=== PATIENT | female | born 1955 | race Caucasian/White ===

== ENCOUNTER 2021-07-17 18:45 | Inpatient (IN) | payer OTHER, SELFPAY ==
--- NOTE | ~2021-07-17 | CT_ITS ---
EXAMINATION: CT CHEST WITHOUT CONTRAST CLINICAL INFORMATION: Smoking history COMPARISON: None TECHNIQUE: Multidetector volumetric CT imaging of the chest was done. Axial MIP volume rendering provided. Sagittal and coronal reformatted images were obtained. This CT examination was performed using dose optimization techniques as appropriate, variously including the following: *Automated exposure control *Adjustment of mA and/or kV according to patient size (this includes techniques or standardized protocols for targeted exams where dose is matched to indication/reason for exam; i.e. extremities or head) *Use of iterative reconstruction technique DLP: 308 mGy-cm FINDINGS: SEC REPORTING CONSULTANT: Unremarkable LUNGS: There are small calcified and noncalcified pulmonary nodules. Largest calcified pulmonary nodule measures 5 mm in the right middle lobe adjacent to the major fissure axial image 267 series 5. Largest noncalcified pulmonary nodule is a peripheral or subpleural 6 mm noncalcified right upper lobe nodule adjacent to the minor fissure axial image 283 series 5. This probably represents a subpleural lymph node. There are patchy areas of groundglass attenuation seen in the right upper lobe. The largest area measures approximately 3 x 4 cm axial image 186 series 5. There is minimal dependent atelectasis seen at the lung bases. No endobronchial or endotracheal lesion is seen. There are mild emphysematous changes. There is a 1 cm cyst in the right upper lobe axial image 188 series 5. No evidence of interstitial lung disease or bronchiectasis is seen. MEDIASTINUM: There is coronary artery calcification. The mediastinum is otherwise normal. PLEURA: There is no pleural effusion. No pleural mass or thickening. AXILLA: No lymphadenopathy. UPPER ABDOMEN: Unremarkable. OSSEOUS STRUCTURES: There are degenerative changes of the spine. CT/CT chest wo con IMPRESSION: Mild emphysema. Patchy areas of groundglass attenuation in the right upper lobe questionable for pneumonitis. Small calcified and noncalcified pulmonary nodules, largest measuring 6 mm. According to the UPDATED 2017 Fleischner Society recommendations, the advised follow-up imaging for 6 mm nodule: Chest CT follow-up in one year. Coronary artery calcification. Fleischner guidelines were followed.
--- NOTE | ~2021-07-17 | MR_ITS ---
EXAMINATION: MR BRAIN WITHOUT CONTRAST CLINICAL INFORMATION: First time psychosis. COMPARISON: None. TECHNIQUE: Multiplanar, multisequence imaging of the brain was performed without contrast. FINDINGS: No diffusion abnormalities are identified to suggest an acute or subacute infarct. No mass effect or midline shift is seen. Moderate generalized parenchymal volume loss and mild chronic white matter microangiopathic changes noted with concordant ex vacuo prominence of the ventricles. There is no evidence of hydrocephalus. No extra-axial fluid collections are seen. The brainstem and cerebellum are normal. The gradient refocused acquisition demonstrates no pathologic magnetic susceptibility artifact to indicate underlying acute or chronic blood products. The craniovertebral junction, marrow signal, and midline structures are normal. The major intracranial flow voids at the level of the [place] of [place] are preserved. The dural venous sinus flow voids are maintained. The mastoid air cells and paranasal sinuses are well aerated. MR/MR head/brain wo con IMPRESSION: No acute intracranial process. Mild chronic white matter microangiopathy and moderate generalized parenchymal volume loss.
[2021-07-17 18:54] VITALS: BP 114/64; PULSE 70; RESP 18; TEMP 36.3; O2SAT 97; BMI 36.0
--- NOTE | 2021-07-17 19:04 | ED.PSYCH ---
HPI - Psych General Chief Complaint: Psychiatric Symptoms <Kay Puga NP - Last Filed: 07/18/21 00:41> Stated Complaint: Section 12 <Kya Puga NP - Last Filed: 07/18/21 00:41> Time Seen by Provider: 07/17/21 19:18 <Kya Puga NP - Last Filed: 07/18/21 00:41> Source: patient and EMS <Kya Puga NP - Last Filed: 07/18/21 00:41> Mode of arrival: EMS <Kya Puga NP - Last Filed: 07/18/21 00:41> Limitations: no limitations <Kya Puga NP - Last Filed: 07/18/21 00:41> History of Present Illness HPI Narrative: 65-year-old female presents via EMS for aggression and psychosis. Patient required Versed and Haldol and physical restraint to be brought into the emergency department. <Kya Puga NP - Last Filed: 07/18/21 00:41> MD complaint: other (Manic, delusions) <Kya Puga NP - Last Filed: 07/18/21 00:41> Onset (ago): day(s) <Kya Puag NP - Last Filed: 07/18/21 00:41> Duration: constant <Kya Puga NP - Last Filed: 07/18/21 00:41> History of same: Yes <Kya Puga NP - Last Filed: 07/18/21 00:41> Relieving factors: none <Kya Puga NP - Last Filed: 07/18/21 00:41> Associated psychiatric symptoms: racing thoughts and delusions <Kya Puga NP - Last Filed: 07/18/21 00:41> Associated symptoms: denies other symptoms <Kya Puga NP - Last Filed: 07/18/21 00:41> Treatments prior to arrival: placed on mental health hold <Kya Puga NP - Last Filed: 07/18/21 00:41> Related Data Home Medications: Home Medications Medication Instructions Recorded Confirmed albuterol sulfate 90 mcg/actuation 2 puff INHALATION Q4H PRN 07/17/21 07/17/21 aerosol inhaler atenolol 100 mg tablet 100 mg PO DAILY 07/17/21 07/17/21 carisoprodol 350 mg tablet 350 mg PO TID PRN 07/17/21 07/17/21 diazepam 10 mg tablet 10 mg PO QID PRN 07/17/21 07/17/21 docusate sodium 100 mg PO BID 07/17/21 07/17/21 duloxetine 30 mg capsule,delayed 90 mg PO DAILY 07/17/21 07/17/21 release nystatin 100,000 unit/gram topical 1 appl TOPICAL BID 07/17/21 07/17/21 cream pantoprazole 40 mg tablet,delayed 40 mg PO DAILY 07/17/21 07/17/21 release polyethylene glycol 3350 17 gram 17 g PO DAILY PRN 07/17/21 07/17/21 oral powder packet trazodone 100 mg tablet 100 mg PO BEDTIME PRN 07/17/21 07/17/21 <yKa Puga NP - Last Filed: 07/18/21 00:41> Allergies/Adverse Reactions: Allergies Allergy/AdvReac Type Severity Reaction Status Date / Time atorvastatin Allergy Intermediate Vomiting Verified 07/17/21 21:21 verapamil Allergy Intermediate Nausea Verified 07/17/21 21:20 zolpidem Allergy Intermediate Rash Verified 07/17/21 21:24 gabapentin Allergy Mild Nausea Verified 07/17/21 21:26 Iodinated Contrast Media Allergy Mild Constipatio Verified 07/17/21 21:27 [Contrast Dye] n niacin Allergy Mild Flushing Verified 07/17/21 21:23 oxybutynin Allergy Mild Dry Mucus Verified 07/17/21 21:26 Membranes Penicillins Allergy Mild Rash Verified 07/17/21 21:24 acetaminophen [From Percocet] Allergy Itching Verified 07/17/21 19:10 amoxicillin [From Augmentin] Allergy Rash Verified 07/17/21 21:19 aspirin [From Percodan] Allergy Chills Verified 07/17/21 21:20 cephalexin Allergy Rash Verified 07/17/21 21:22 clavulanic acid Allergy Rash Verified 07/17/21 21:19 [From Augmentin] codeine Allergy Itching Verified 07/17/21 19:11 oxycodone [From Percocet] Allergy Itching Verified 07/17/21 19:10 Telfa pad Allergy Mild Rash Uncoded 07/17/21 21:29 <Kya Puga NP - Last Filed: 07/18/21 00:41> Review of Systems Review of Systems: Patient noncompliant at this time <Kya Puga NP - Last Filed: 07/18/21 00:41> Yes Unobtainable due to mental status <Kya Puga NP - Last Filed: 07/18/21 00:41> [facility] Past Medical History Attestation statement: The following information was validated with the patient. <Kya Puga NP - Last Filed: 07/18/21 00:41> Source: old records reviewed <Kya Puag NP - Last Filed: 07/18/21 00:41> Social History Social History: Social History Advance Directives: No <Kya Puga NP - Last Filed: 07/18/21 00:41> Physical Exam Vital Signs: Vital Signs: Last Vital Signs Temp 97.7 F 07/18/21 07:37 Pulse 72 07/18/21 07:37 Resp 18 07/18/21 07:37 BP 135/78 07/18/21 07:37 Pulse Ox 99 07/18/21 07:37 BMI result Body Mass Index 36.0 <Kya Puga NP - Last Filed: 07/18/21 00:41> Vital Signs: Last Vital Signs Temp 97.7 F 07/18/21 07:37 Pulse 72 07/18/21 07:37 Resp 18 07/18/21 07:37 BP 135/78 07/18/21 07:37 Pulse Ox 99 07/18/21 07:37 BMI result Body Mass Index 36.0 <ADEEL Mchugh - Last Filed: 07/18/21 08:52> Appearance: Alert. Oriented. Moderate distress. Filthy. Clothing covered in dog feces. Eyes: Pupils equal, round and reactive to light. Sclera nonicteric. ENT: Pharynx normal. Moist mucous membranes. Neck: Normal inspection. Neck supple. CVS: Normal heart rate and rhythm. Pulses normal. Respiratory: No respiratory distress. Breath sounds normal. Abdomen: Soft and nontender. Skin: Skin warm and dry. Normal skin color. Normal skin turgor. Extremities: No lower extremity edema. Gait balanced and coordinated. Neuro: No motor deficit. No sensory deficit. Cranial nerves 2-12 intact. <Kya Puga NP - Last Filed: 07/18/21 00:41> Course Course Course Narrative: 65-year-old female presents via EMS under section 12. Patient has had multiple interactions with the police over the past month, patient's significant other called 911 because patient was uncontrollable. corporate security officer escorted this patient to the ED, he reports that this patient has called 911 over 100 times in the past month. When she called 911 today, she reported that she was eating her dogs puppy teeth and trying to rip them out of her face. Patient is swearing at all staff, allowing vital signs to be obtained and blood, however not answering any questions appropriately. Patient is a Section 12 from the community 20:48 patient unable to be redirected. Continuing with behavioral outburst. Order for Haldol and Ativan p.o. by Dr. Palomares. 22:35 labs indicate H&H of 10.9/34.3 no prior lab values recorded. Urine toxicology positive for amphetamines, benzos which she is prescribed, and marijuana. When she presented to the emergency department, belongings search found multiple packages of marijuana edibles. 00:37 physician observation started at this time <Kya Puga NP - Last Filed: 07/18/21 00:41> Reevaluation(s) Reevaluation #1: Physician observation continued. Patient was seen by N in the community and is an inpatient bed search. No acute overnight events. She is wanting to go home. All home meds have been reordered. Nicotine lozenges ordered for nicotine cravings. Will continue to monitor. <ADEEL Mchugh - Last Filed: 07/18/21 08:52> MDM - Psych Differential Diagnosis Differential diagnosis: Likely acute psychosis, bipolar disorder, depression, drug-induced psychotic disorder, mood disorder and schizoaffective disorder <ANAYA Davila Last Filed: 07/18/21 00:41> Medical Records Attestation: I reviewed the patient's medical records. <Kya Puga NP - Last Filed: 07/18/21 00:41> Lab Data Attestation: I reviewed the patient's lab results. <Kya Puga NP - Last Filed: 07/18/21 00:41> Result diagrams: : 07/17/21 20:10 07/17/21 20:10 <Kya Puga NP - Last Filed: 07/18/21 00:41> Labs: Lab Results 07/17/21 07/17/21 07/17/21 Range/Units 19:15 20:02 20:02 WBC (4.8-10.8) X10*3/uL RBC (4.20-5.50) X10*6/uL Hgb (12.0-16.0) g/dl Hct (37.0-47.0) % MCV (80.0-98.0) fL MCH (27.0-33.0) pg MCHC (31.0-35.0) g/dl RDW (11.0-16.0) % Plt Count (160-400) X10*3/uL MPV (9.4-12.3) fL Immature Gran % (Auto) (0.0-0.4) % Neut % (Auto) (45-73) % Lymph % (Auto) (20-40) % [place] % (Auto) (2-11) % Eos % (Auto) (0-4) % Baso % (Auto) (0-2) % Lymph # (Auto) (1.2-4.9) X10*3/uL [place] # (Auto) (0.1-1.2) X10*3/uL Eos # (Auto) (0.0-0.4) X10*3/uL Baso # (Auto) (0.0-0.2) X10*3/uL Abs Immat Gran (auto) (0.00-0.03) X10*3/uL Absolute Neuts (auto) (2.0-8.3) x10*3/uL Absolute Nucleated RBC (0.0-0.012) X10*3/uL Nucleated RBC % (auto) (0.0-0.2) /100WBC Sodium (135-145) mmol/L Potassium (3.3-5.1) mmol/L Chloride (96-108) mmol/L Carbon Dioxide (22-29) mmol/L Anion Gap (12-20) BUN (9-16) mg/dL Creatinine (0.5-1.4) mg/dL Estim Creat Clear Calc Estimated GFR Random Glucose (60-115) mg/dL Calcium (8.4-10.2) mg/dL Magnesium (1.6-2.6) mg/dL Total Bilirubin (0.0-1.0) mg/dL Direct Bilirubin (0.0-0.5) mg/dL AST (5-31) U/L ALT (0-31) U/L Alkaline Phosphatase (39-117) U/L Total Protein (6.5-8.0) g/dL Albumin (3.5-5.0) g/dL TSH (0.32-4.0) uIU/mL Urine Color DK YELLOW Urine Appearance CLOUDY Urine pH 6.0 (5.0-8.0) Ur Specific [place] 1.025 (1.005-1.025) Urine Protein TRACE (NEG-TRACE) MG/DL Urine Glucose (UA) NEG (NEG) MG/DL Urine Ketones 5 (NEG) MG/DL Urine Blood NEG (NEG) Urine Nitrite NEG (NEG) Ur Leukocyte Esterase NEG (NEG) Salicylates (15-30) mg/dL Urine Opiates Screen Not Detected (Not Detect) Urine Fentanyl Screen Not Detected (Not Detect) Acetaminophen (<30) mcg/mL Ur Barbiturates Screen Not Detected (Not Detect) Ur Phencyclidine Scrn Not Detected (Not Detect) Ur Amphetamines Screen POSITIVE H (Not Detect) U Benzodiazepines Scrn POSITIVE H (Not Detect) Urine Cocaine Screen Not Detected (Not Detect) U Marijuana (THC) Screen POSITIVE H (Not Detect) Ethyl Alcohol mg/dL COVID-19 (AGUST[facility]N) Negative (Negative) COVID-19 Clin Com See Note 07/17/21 07/17/21 07/17/21 Range/Units 20:10 20:10 20:10 WBC 4.9 (4.8-10.8) X10*3/uL RBC 3.52 L (4.20-5.50) X10*6/uL Hgb 10.9 L (12.0-16.0) g/dl Hct 34.3 L (37.0-47.0) % MCV 97.4 (80.0-98.0) fL MCH 31.0 (27.0-33.0) pg MCHC 31.8 (31.0-35.0) g/dl RDW 13.2 (11.0-16.0) % Plt Count 201 (160-400) X10*3/uL MPV 8.6 L (9.4-12.3) fL Immature Gran % (Auto) 0.6 H (0.0-0.4) % Neut % (Auto) 74.1 H (45-73) % Lymph % (Auto) 15.1 L (20-40) % [place] % (Auto) 8.8 (2-11) % Eos % (Auto) 1.0 (0-4) % Baso % (Auto) 0.4 (0-2) % Lymph # (Auto) 0.7 L (1.2-4.9) X10*3/uL [place] # (Auto) 0.4 (0.1-1.2) X10*3/uL Eos # (Auto) 0.1 (0.0-0.4) X10*3/uL Baso # (Auto) 0.0 (0.0-0.2) X10*3/uL Abs Immat Gran (auto) 0.03 (0.00-0.03) X10*3/uL Absolute Neuts (auto) 3.6 (2.0-8.3) x10*3/uL Absolute Nucleated RBC 0.000 (0.0-0.012) X10*3/uL Nucleated RBC % (auto) 0.0 (0.0-0.2) /100WBC Sodium 134 L (135-145) mmol/L Potassium 4.5 (3.3-5.1) mmol/L Chloride 100 (96-108) mmol/L Carbon Dioxide 27 (22-29) mmol/L Anion Gap 12 (12-20) BUN 10 (9-16) mg/dL Creatinine 0.83 (0.5-1.4) mg/dL Estim Creat Clear Calc 75.7 Estimated GFR > 60 Random Glucose 100 (60-115) mg/dL Calcium 10.2 (8.4-10.2) mg/dL Magnesium (1.6-2.6) mg/dL Total Bilirubin (0.0-1.0) mg/dL Direct Bilirubin (0.0-0.5) mg/dL AST (5-31) U/L ALT (0-31) U/L Alkaline Phosphatase (39-117) U/L Total Protein (6.5-8.0) g/dL Albumin (3.5-5.0) g/dL TSH (0.32-4.0) uIU/mL Urine Color Urine Appearance Urine pH (5.0-8.0) Ur Specific [place] (1.005-1.025) Urine Protein (NEG-TRACE) MG/DL Urine Glucose (UA) (NEG) MG/DL Urine Ketones (NEG) MG/DL Urine Blood (NEG) Urine Nitrite (NEG) Ur Leukocyte Esterase (NEG) Salicylates (15-30) mg/dL Urine Opiates Screen (Not Detect) Urine Fentanyl Screen (Not Detect) Acetaminophen (<30) mcg/mL Ur Barbiturates Screen (Not Detect) Ur Phencyclidine Scrn (Not Detect) Ur Amphetamines Screen (Not Detect) U Benzodiazepines Scrn (Not Detect) Urine Cocaine Screen (Not Detect) U Marijuana (THC) Screen (Not Detect) Ethyl Alcohol < 10 mg/dL COVID-19 ([facility]N) (Negative) COVID-19 Clin Com 07/17/21 Range/Units 20:10 WBC (4.8-10.8) X10*3/uL RBC (4.20-5.50) X10*6/uL Hgb (12.0-16.0) g/dl Hct (37.0-47.0) % MCV (80.0-98.0) fL MCH (27.0-33.0) pg MCHC (31.0-35.0) g/dl RDW (11.0-16.0) % Plt Count (160-400) X10*3/uL MPV (9.4-12.3) fL Immature Gran % (Auto) (0.0-0.4) % Neut % (Auto) (45-73) % Lymph % (Auto) (20-40) % [place] % (Auto) (2-11) % Eos % (Auto) (0-4) % Baso % (Auto) (0-2) % Lymph # (Auto) (1.2-4.9) X10*3/uL [place] # (Auto) (0.1-1.2) X10*3/uL Eos # (Auto) (0.0-0.4) X10*3/uL Baso # (Auto) (0.0-0.2) X10*3/uL Abs Immat Gran (auto) (0.00-0.03) X10*3/uL Absolute Neuts (auto) (2.0-8.3) x10*3/uL Absolute Nucleated RBC (0.0-0.012) X10*3/uL Nucleated RBC % (auto) (0.0-0.2) /100WBC Sodium (135-145) mmol/L Potassium (3.3-5.1) mmol/L Chloride (96-108) mmol/L Carbon Dioxide (22-29) mmol/L Anion Gap (12-20) BUN (9-16) mg/dL Creatinine (0.5-1.4) mg/dL Estim Creat Clear Calc Estimated GFR Random Glucose (60-115) mg/dL Calcium (8.4-10.2) mg/dL Magnesium 2.1 (1.6-2.6) mg/dL Total Bilirubin 0.3 (0.0-1.0) mg/dL Direct Bilirubin 0.2 (0.0-0.5) mg/dL AST 23 (5-31) U/L ALT 18 (0-31) U/L Alkaline Phosphatase 44 (39-117) U/L Total Protein 6.9 (6.5-8.0) g/dL Albumin 3.8 (3.5-5.0) g/dL TSH 2.81 (0.32-4.0) uIU/mL Urine Color Urine Appearance Urine pH (5.0-8.0) Ur Specific [place] (1.005-1.025) Urine Protein (NEG-TRACE) MG/DL Urine Glucose (UA) (NEG) MG/DL Urine Ketones (NEG) MG/DL Urine Blood (NEG) Urine Nitrite (NEG) Ur Leukocyte Esterase (NEG) Salicylates < 5.0 L (15-30) mg/dL Urine Opiates Screen (Not Detect) Urine Fentanyl Screen (Not Detect) Acetaminophen < 1 (<30) mcg/mL Ur Barbiturates Screen (Not Detect) Ur Phencyclidine Scrn (Not Detect) Ur Amphetamines Screen (Not Detect) U Benzodiazepines Scrn (Not Detect) Urine Cocaine Screen (Not Detect) U Marijuana (THC) Screen (Not Detect) Ethyl Alcohol mg/dL COVID-19 ([facility]N) (Negative) COVID-19 Clin Com <Kya Puga, TEAM DRIVER - Last Filed: 07/18/21 00:41> Lab Results 07/17/21 07/17/21 07/17/21 Range/Units 19:15 20:02 20:02 WBC (4.8-10.8) X10*3/uL RBC (4.20-5.50) X10*6/uL Hgb (12.0-16.0) g/dl Hct (37.0-47.0) % MCV (80.0-98.0) fL MCH (27.0-33.0) pg MCHC (31.0-35.0) g/dl RDW (11.0-16.0) % Plt Count (160-400) X10*3/uL MPV (9.4-12.3) fL Immature Gran % (Auto) (0.0-0.4) % Neut % (Auto) (45-73) % Lymph % (Auto) (20-40) % [place] % (Auto) (2-11) % Eos % (Auto) (0-4) % Baso % (Auto) (0-2) % Lymph # (Auto) (1.2-4.9) X10*3/uL [place] # (Auto) (0.1-1.2) X10*3/uL Eos # (Auto) (0.0-0.4) X10*3/uL Baso # (Auto) (0.0-0.2) X10*3/uL Abs Immat Gran (auto) (0.00-0.03) X10*3/uL Absolute Neuts (auto) (2.0-8.3) x10*3/uL Absolute Nucleated RBC (0.0-0.012) X10*3/uL Nucleated RBC % (auto) (0.0-0.2) /100WBC Sodium (135-145) mmol/L Potassium (3.3-5.1) mmol/L Chloride (96-108) mmol/L Carbon Dioxide (22-29) mmol/L Anion Gap (12-20) BUN (9-16) mg/dL Creatinine (0.5-1.4) mg/dL Estim Creat Clear Calc Estimated GFR Random Glucose (60-115) mg/dL Calcium (8.4-10.2) mg/dL Magnesium (1.6-2.6) mg/dL Total Bilirubin (0.0-1.0) mg/dL Direct Bilirubin (0.0-0.5) mg/dL AST (5-31) U/L ALT (0-31) U/L Alkaline Phosphatase (39-117) U/L Total Protein (6.5-8.0) g/dL Albumin (3.5-5.0) g/dL TSH (0.32-4.0) uIU/mL Urine Color DK YELLOW Urine Appearance CLOUDY Urine pH 6.0 (5.0-8.0) Ur Specific [place] 1.025 (1.005-1.025) Urine Protein TRACE (NEG-TRACE) MG/DL Urine Glucose (UA) NEG (NEG) MG/DL Urine Ketones 5 (NEG) MG/DL Urine Blood NEG (NEG) Urine Nitrite NEG (NEG) Ur Leukocyte Esterase NEG (NEG) Salicylates (15-30) mg/dL Urine Opiates Screen Not Detected (Not Detect) Urine Fentanyl Screen Not Detected (Not Detect) Acetaminophen (<30) mcg/mL Ur Barbiturates Screen Not Detected (Not Detect) Ur Phencyclidine Scrn Not Detected (Not Detect) Ur Amphetamines Screen POSITIVE H (Not Detect) U Benzodiazepines Scrn POSITIVE H (Not Detect) Urine Cocaine Screen Not Detected (Not Detect) U Marijuana (THC) Screen POSITIVE H (Not Detect) Ethyl Alcohol mg/dL COVID-19 ([facility]) Negative (Negative) COVID-19 Clin Com See Note 07/17/21 07/17/21 07/17/21 Range/Units 20:10 20:10 20:10 WBC 4.9 (4.8-10.8) X10*3/uL RBC 3.52 L (4.20-5.50) X10*6/uL Hgb 10.9 L (12.0-16.0) g/dl Hct 34.3 L (37.0-47.0) % MCV 97.4 (80.0-98.0) fL MCH 31.0 (27.0-33.0) pg MCHC 31.8 (31.0-35.0) g/dl RDW 13.2 (11.0-16.0) % Plt Count 201 (160-400) X10*3/uL MPV 8.6 L (9.4-12.3) fL Immature Gran % (Auto) 0.6 H (0.0-0.4) % Neut % (Auto) 74.1 H (45-73) % Lymph % (Auto) 15.1 L (20-40) % [place] % (Auto) 8.8 (2-11) % Eos % (Auto) 1.0 (0-4) % Baso % (Auto) 0.4 (0-2) % Lymph # (Auto) 0.7 L (1.2-4.9) X10*3/uL [place] # (Auto) 0.4 (0.1-1.2) X10*3/uL Eos # (Auto) 0.1 (0.0-0.4) X10*3/uL Baso # (Auto) 0.0 (0.0-0.2) X10*3/uL Abs Immat Gran (auto) 0.03 (0.00-0.03) X10*3/uL Absolute Neuts (auto) 3.6 (2.0-8.3) x10*3/uL Absolute Nucleated RBC 0.000 (0.0-0.012) X10*3/uL Nucleated RBC % (auto) 0.0 (0.0-0.2) /100WBC Sodium 134 L (135-145) mmol/L Potassium 4.5 (3.3-5.1) mmol/L Chloride 100 (96-108) mmol/L Carbon Dioxide 27 (22-29) mmol/L Anion Gap 12 (12-20) BUN 10 (9-16) mg/dL Creatinine 0.83 (0.5-1.4) mg/dL Estim Creat Clear Calc 75.7 Estimated GFR > 60 Random Glucose 100 (60-115) mg/dL Calcium 10.2 (8.4-10.2) mg/dL Magnesium (1.6-2.6) mg/dL Total Bilirubin (0.0-1.0) mg/dL Direct Bilirubin (0.0-0.5) mg/dL AST (5-31) U/L ALT (0-31) U/L Alkaline Phosphatase (39-117) U/L Total Protein (6.5-8.0) g/dL Albumin (3.5-5.0) g/dL TSH (0.32-4.0) uIU/mL Urine Color Urine Appearance Urine pH (5.0-8.0) Ur Specific [place] (1.005-1.025) Urine Protein (NEG-TRACE) MG/DL Urine Glucose (UA) (NEG) MG/DL Urine Ketones (NEG) MG/DL Urine Blood (NEG) Urine Nitrite (NEG) Ur Leukocyte Esterase (NEG) Salicylates (15-30) mg/dL Urine Opiates Screen (Not Detect) Urine Fentanyl Screen (Not Detect) Acetaminophen (<30) mcg/mL Ur Barbiturates Screen (Not Detect) Ur Phencyclidine Scrn (Not Detect) Ur Amphetamines Screen (Not Detect) U Benzodiazepines Scrn (Not Detect) Urine Cocaine Screen (Not Detect) U Marijuana (THC) Screen (Not Detect) Ethyl Alcohol < 10 mg/dL COVID-19 ([facility]) (Negative) COVID-19 Clin Com 07/17/21 Range/Units 20:10 WBC (4.8-10.8) X10*3/uL RBC (4.20-5.50) X10*6/uL Hgb (12.0-16.0) g/dl Hct (37.0-47.0) % MCV (80.0-98.0) fL MCH (27.0-33.0) pg MCHC (31.0-35.0) g/dl RDW (11.0-16.0) % Plt Count (160-400) X10*3/uL MPV (9.4-12.3) fL Immature Gran % (Auto) (0.0-0.4) % Neut % (Auto) (45-73) % Lymph % (Auto) (20-40) % [place] % (Auto) (2-11) % Eos % (Auto) (0-4) % Baso % (Auto) (0-2) % Lymph # (Auto) (1.2-4.9) X10*3/uL [place] # (Auto) (0.1-1.2) X10*3/uL Eos # (Auto) (0.0-0.4) X10*3/uL Baso # (Auto) (0.0-0.2) X10*3/uL Abs Immat Gran (auto) (0.00-0.03) X10*3/uL Absolute Neuts (auto) (2.0-8.3) x10*3/uL Absolute Nucleated RBC (0.0-0.012) X10*3/uL Nucleated RBC % (auto) (0.0-0.2) /100WBC Sodium (135-145) mmol/L Potassium (3.3-5.1) mmol/L Chloride (96-108) mmol/L Carbon Dioxide (22-29) mmol/L Anion Gap (12-20) BUN (9-16) mg/dL Creatinine (0.5-1.4) mg/dL Estim Creat Clear Calc Estimated GFR Random Glucose (60-115) mg/dL Calcium (8.4-10.2) mg/dL Magnesium 2.1 (1.6-2.6) mg/dL Total Bilirubin 0.3 (0.0-1.0) mg/dL Direct Bilirubin 0.2 (0.0-0.5) mg/dL AST 23 (5-31) U/L ALT 18 (0-31) U/L Alkaline Phosphatase 44 (39-117) U/L Total Protein 6.9 (6.5-8.0) g/dL Albumin 3.8 (3.5-5.0) g/dL TSH 2.81 (0.32-4.0) uIU/mL Urine Color Urine Appearance Urine pH (5.0-8.0) Ur Specific [place] (1.005-1.025) Urine Protein (NEG-TRACE) MG/DL Urine Glucose (UA) (NEG) MG/DL Urine Ketones (NEG) MG/DL Urine Blood (NEG) Urine Nitrite (NEG) Ur Leukocyte Esterase (NEG) Salicylates < 5.0 L (15-30) mg/dL Urine Opiates Screen (Not Detect) Urine Fentanyl Screen (Not Detect) Acetaminophen < 1 (<30) mcg/mL Ur Barbiturates Screen (Not Detect) Ur Phencyclidine Scrn (Not Detect) Ur Amphetamines Screen (Not Detect) U Benzodiazepines Scrn (Not Detect) Urine Cocaine Screen (Not Detect) U Marijuana (THC) Screen (Not Detect) Ethyl Alcohol mg/dL COVID-19 ([facility]) (Negative) COVID-19 Clin Com <ADEEL Mchugh - Last Filed: 07/18/21 08:52> Discharge Plan Discharge Clinical Impression: Acute psychosis, Drug-induced psychotic disorder <Kya Puga NP - Last Filed: 07/18/21 00:41> Patient Disposition: Still a Patient <Kya Puga NP - Last Filed: 07/18/21 00:41> Prescriptions: No Action diazepam 10 mg Tablet 10 mg PO QID PRN (Reason: Anxiety) 0RF trazodone 100 mg Tablet 100 mg PO BEDTIME PRN (Reason: Insomnia) 0RF duloxetine 30 mg Capsule,Delayed Release(Dr/Ec) 90 mg PO DAILY 0RF carisoprodol 350 mg Tablet 350 mg PO TID PRN (Reason: Muscle Spasm) 0RF atenolol 100 mg Tablet 100 mg PO DAILY 0RF pantoprazole 40 mg Tablet,Delayed Release (Dr/Ec) 40 mg PO DAILY 0RF docusate sodium 100 mg PO BID 0RF nystatin 100,000 unit/gram Cream 1 appl TOPICAL BID 0RF albuterol sulfate 90 mcg/actuation Hfa Aerosol Inhaler 2 puff INHALATION Q4H PRN (Reason: Shortness Of Breath) 0RF polyethylene glycol 3350 17 gram Powder In Packet 17 g PO DAILY PRN (Reason: Constipation) 0RF <Kya Puga NP - Last Filed: 07/18/21 00:41>
--- NOTE | 2021-07-17 19:19 | ECG_ITS ---
Test Reason : MEDICAL CLEARANCE Blood Pressure : / mmHG Vent. Rate : 052 BPM Atrial Rate : 052 BPM P-R Int : 176 ms QRS Dur : 096 ms QT Int : 416 ms P-R-T Axes : 065 -14 013 degrees QTc Int : 386 ms Sinus bradycardia T wave abnormality, consider anterior ischemia Abnormal ECG No previous ECGs available Referred By: Kya Puga Electronically Signed By:Robin Askew
[2021-07-17 19:35] LABS: COVID-19 Test Negative (Negative)
[2021-07-17 20:11] LABS: Appearance Urine CLOUDY; Color Urine DK YELLOW; Glucose Urine UA NEG (NEG); Leukocyte Esterase Urine NEG (NEG); Nitrite Urine NEG (NEG); Specific Gravity - Urine 1.025 (1.005-1.025); Urine Blood NEG (NEG); Urine Ketones 5 MG/DL (NEG); Urine Protein TRACE MG/DL (NEG-TRACE)
[2021-07-17 20:20] LABS: MANUAL DIFF FLAG NO
[2021-07-17 20:28] LABS: Basophils Percent Auto 0.4 % (0-2); Eosinophils Absolute Auto 0.1 X10*3/uL (0.0-0.4); Hematocrit 34.3 % (37.0-47.0); Hemoglobin 10.9 g/dl (12.0-16.0); Imm Gran Abs Auto 0.03 X10*3/uL (0.00-0.03); Imm Gran Pct Auto 0.6 % (0.0-0.4); Lymphocytes Absolute Auto 0.7 X10*3/uL (1.2-4.9); Lymphocytes Percent Auto 15.1 % (20-40); Mean Corpuscular HGB Conc 31.8 g/dl (31.0-35.0); Mean Corpuscular Volume 97.4 fL (80.0-98.0); Mean Platelet Volume 8.6 fL (9.4-12.3); Monocytes Absolute Auto 0.4 X10*3/uL (0.1-1.2); Monocytes Percent Auto 8.8 % (2-11); Neutrophils Absolute Auto 3.6 x10*3/uL (2.0-8.3); Neutrophils Percent Auto 74.1 % (45-73); Platelet Count 201 X10*3/uL (160-400); Red Blood Count 3.52 X10*6/uL (4.20-5.50); Red Cell Distribution Width 13.2 % (11.0-16.0); White Blood Count 4.9 X10*3/uL (4.8-10.8)
[2021-07-17] MEDS: Diphth,Pertus(ACell),Tet Adult 0.5 ML SYRINGE IM (20:28)
[2021-07-17 20:38] LABS: Ethanol < 10 mg/dL
[2021-07-17 20:39] LABS: Amphetamine Screen Urine POSITIVE (Not Detect); Barbiturates, Urine Not Detected (Not Detect); Benzodiazepines Screen Urine POSITIVE (Not Detect); Cannabinoid Screen Urine POSITIVE (Not Detect); Cocaine Screen Urine Not Detected (Not Detect); Fentanyl, urine Not Detected (Not Detect); Opiate Screen Urine Not Detected (Not Detect); Phencyclidine Screen Urine Not Detected (Not Detect)
[2021-07-17 20:41] LABS: Anion Gap 12 (12-20); Blood Urea Nitrogen 10 mg/dL (9-16); Calcium 10.2 mg/dL (8.4-10.2); Carbon Dioxide 27 mmol/L (22-29); Chloride 100 mmol/L (96-108); Creatinine Clr Calc Pharmacy 75.7; Estimated Glomerular Filt Rate > 60; Glucose Random 100 mg/dL (60-115); Potassium 4.5 mmol/L (3.3-5.1); Sodium 134 mmol/L (135-145)
[2021-07-17] MEDS: HaloperidoL 5 MG TABLET 10 MG PO (20:55)
[2021-07-17] MEDS: diphenhydrAMINE HCL 25 MG TABLET 50 MG PO (20:55)
[2021-07-17] MEDS: LORazepam 1 MG TABLET 2 MG PO (20:55)
[2021-07-17 20:58] LABS: Acetaminophen LAB < 1 mcg/mL (<30); Alanine Aminotransferase 18 U/L (0-31); Albumin Level 3.8 g/dL (3.5-5.0); Alkaline Phosphatase 44 U/L (39-117); Aspartate Amino Transferase 23 U/L (5-31); Bilirubin Direct 0.2 mg/dL (0.0-0.5); Bilirubin Total 0.3 mg/dL (0.0-1.0); Magnesium 2.1 mg/dL (1.6-2.6); Total Protein 6.9 g/dL (6.5-8.0)
[2021-07-17 21:02] LABS: TSH reflex Free T4 2.81 uIU/mL (0.32-4.0)
[2021-07-17 21:09] LABS: Salicylate < 5.0 mg/dL (15-30)
[2021-07-17 21:17] VITALS: BP 122/81; PULSE 59; RESP 15; TEMP 36.5; O2SAT 100
[2021-07-17] MEDS: carisoprodoL 350 MG TABLET PO (23:18)
[2021-07-17] MEDS: traZODone HCL 100 MG TABLET PO (23:18)
[2021-07-17 23:22] VITALS: BP 96/54; PULSE 60; RESP 18; TEMP 37.1; O2SAT 98
[2021-07-18] MEDS: diazePAM 5 MG TABLET 10 MG PO ×2 (00:09→20:27)
[2021-07-18] MEDS: Omeprazole 20 MG CAPSULE.DR PO (05:51)
--- NOTE | 2021-07-18 06:13 | PC.NURSE ---
Patient was agitated constantly demanding discharge, loud and disruptive, threatening at time, Ativan 2 mg PO, Haldol 10 mg PO, and Benadryl 50 mg PO, administered as ordered @ 2054/patient compliant med intake, med rec completed by calling [facility]compliant with her medication, Tdap administered at 2027, patient wears incontinence brief, no incontinence episode during our shift, patient visited bathroom multiple times, patient's ambulates steady with walker, disposition per [facility] is section 12 inpatient bed search, will continue to monitor.
--- NOTE | 2021-07-18 07:07 | PC.NURSE ---
patient appears asleep at beginning of shift, respirations even and unlabored patient appears in no distress
[2021-07-18 07:37] VITALS: BP 135/78; PULSE 72; RESP 18; TEMP 36.5; O2SAT 99
[2021-07-18] MEDS: atenoloL 100 MG TABLET PO (07:54)
[2021-07-18] MEDS: DULoxetine HCl 30 MG CAPSULE.DR 90 MG PO (07:54)
[2021-07-18] MEDS: Docusate Sodium 100 MG CAPSULE PO ×2 (07:54→20:27)
--- NOTE | 2021-07-18 09:02 | PC.NURSE ---
patient declines ekg im not doing anything its not right im from my service dog
[2021-07-18] MEDS: Nystatin Cream 15 GM TUBE 1 APPL TOPICAL (09:17)
[2021-07-18] MEDS: Nicotine Polacrilex Lozenge 4 MG LOZENGE BUCCAL ×2 (09:17→14:41)
[2021-07-18 18:00] VITALS: BP 148/84; PULSE 60; RESP 16; TEMP 36.6; O2SAT 100
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
[2021-07-18] MEDS: traZODone HCL 100 MG TABLET PO (20:26)
[2021-07-18] MEDS: carisoprodoL 350 MG TABLET PO (20:26)
[2021-07-19] MEDS: Omeprazole 20 MG CAPSULE.DR PO (05:39)
[2021-07-19] MEDS: Nicotine Polacrilex Lozenge 4 MG LOZENGE BUCCAL ×2 (06:53→13:53)
[2021-07-19 08:27] LABS: Alanine Aminotransferase 14 U/L (0-31); Albumin Level 3.7 g/dL (3.5-5.0); Alkaline Phosphatase 41 U/L (39-117); Anion Gap 13 (12-20); Aspartate Amino Transferase 19 U/L (5-31); Bilirubin Total 0.4 mg/dL (0.0-1.0); Blood Urea Nitrogen 8 mg/dL (9-16); Carbon Dioxide 25 mmol/L (22-29); Chloride 102 mmol/L (96-108); Cholesterol 166 mg/dL; Creatinine Clr Calc Pharmacy 84.8; Estimated Glomerular Filt Rate > 60; Glucose Fasting 100 mg/dL (60-99); HDL Cholesterol 38 mg/dL; LDL Cholesterol Calculated 111 mg/dl; Potassium 4.2 mmol/L (3.3-5.1); Sodium 136 mmol/L (135-145); Total Protein 6.9 g/dL (6.5-8.0); Triglycerides 88 mg/dL
[2021-07-19 08:35] LABS: Calcium 9.7 mg/dL (8.4-10.2)
[2021-07-19 08:47] VITALS: BP 98/80; PULSE 71; RESP 16; TEMP 36.7; O2SAT 100
[2021-07-19] MEDS: carisoprodoL 350 MG TABLET PO (09:24)
[2021-07-19] MEDS: DULoxetine HCl 30 MG CAPSULE.DR 90 MG PO (09:25)
[2021-07-19] MEDS: atenoloL 100 MG TABLET PO (09:26)
[2021-07-19] MEDS: Docusate Sodium 100 MG CAPSULE PO ×2 (09:26→21:21)
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
[2021-07-19] MEDS: diazePAM 5 MG TABLET 10 MG PO (13:49)
[2021-07-19] MEDS: Magnesium Hydrox/Alum Hydrox 30 ML ORAL.SUSP PO (13:53)
[2021-07-19] MEDS: HaloperidoL 1 MG TABLET PO ×2 (16:54→21:21)
[2021-07-19 17:51] LABS: Amphetamine Screen Urine Not Detected (Not Detect); Barbiturates, Urine Not Detected (Not Detect); Benzodiazepines Screen Urine POSITIVE (Not Detect); Cannabinoid Screen Urine POSITIVE (Not Detect); Cocaine Screen Urine Not Detected (Not Detect); Fentanyl, urine POSITIVE (Not Detect); Opiate Screen Urine Not Detected (Not Detect); Phencyclidine Screen Urine Not Detected (Not Detect)
[2021-07-19] MEDS: traZODone HCL 100 MG TABLET PO (21:26)
[2021-07-19 22:12] VITALS: BP 115/68; PULSE 62; RESP 20; TEMP 36.4; O2SAT 99
[2021-07-20] MEDS: Albuterol Sulfate 90 MCG 8 GM INHALER 2 PUFF INHALE ×2 (06:09→17:02)
[2021-07-20] MEDS: Omeprazole 20 MG CAPSULE.DR PO (06:09)
[2021-07-20 07:00] VITALS: BMI 30.8
[2021-07-20 08:43] VITALS: BP 160/77; PULSE 61; RESP 16; TEMP 36.9; O2SAT 96
[2021-07-20] MEDS: DULoxetine HCl 30 MG CAPSULE.DR 90 MG PO (09:11)
[2021-07-20] MEDS: HaloperidoL 1 MG TABLET PO (09:11)
[2021-07-20] MEDS: atenoloL 100 MG TABLET PO (09:11)
[2021-07-20] MEDS: Docusate Sodium 100 MG CAPSULE PO ×2 (09:12→20:33)
--- NOTE | 2021-07-20 14:26 | HO.PSYCHPN ---
Subjective Subjective Date of Service: 07/20/21 Reason For Visit: Psychosis Subjective Notes: Conditional Voluntary Interim History: The nursing staff reported that the patient has been compliant with treatment. She reports poor sleep and she wants something for sleep. Still, she is very delusional, disorganized with bizarre delusions regarding vinegar, baby dog teeth coming of her skin. She probably has psychosis induced by cannabis since she uses these in an disclosed way. Yesterday, she was started on a low-dose of Haldol 1 mg p.o. t.i.d. with no over-sedation. Today we will increase up to 2 mg p.o. t.i.d.. On interview, she complained of poor sleep and she agreed to restart and hypnotic, she remains psychotic with elated mood, stating that she is going to be discharged today and she was happy to help staff and peers, informing of the benefits of white vinegar. Mental Status Exam Mental Status Exam Patient Appearance: Disheveled Patient Orientation: Person Level of Consciousness: Awake Patient Behavior: Guarded and Cooperative Mood Description: Elated Affect Description: Labile Ability to Follow Directions: Fair Speech Pattern: Clear Delusions: Paranoid Ideation, Grandiose and Bizarre Thought Process: Illogical Thought Content: positive for Perseveration, positive for Poverty of Content and positive for Disorganized Judgement: Poor Diagnostics Vital Signs (24Hr): Vital Signs - 24 hr 07/19/21 22:12 07/20/21 08:43 Temperature 97.5 F 98.4 F Pulse Rate 62 61 Respiratory Rate 20 16 Blood Pressure 115/68 160/77 H Pulse Oximetry 99 96 BMI result Body Mass Index 30.8 Labs Results: 07/17/21 20:10 07/19/21 07:54 Labs: Laboratory Results - last 48 hr 07/19/21 07/19/21 07:54 Unknown Sodium 136 Potassium 4.2 Chloride 102 Carbon Dioxide 25 Anion Gap 13 BUN 8 L Creatinine 0.74 Estim Creat Clear Calc 84.8 Estimated GFR > 60 Fasting Glucose 100 H Calcium 9.7 Total Bilirubin 0.4 AST 19 ALT 14 Alkaline Phosphatase 41 Total Protein 6.9 Albumin 3.7 Triglycerides 88 Cholesterol 166 LDL Cholesterol, Calc 111 HDL Cholesterol 38 Urine Opiates Screen Not Detected Urine Fentanyl Screen POSITIVE H Ur Barbiturates Screen Not Detected Ur Phencyclidine Scrn Not Detected Ur Amphetamines Screen Not Detected U Benzodiazepines Scrn POSITIVE H Urine Cocaine Screen Not Detected U Marijuana (THC) Screen POSITIVE H Medications Medications Current Medications Al Hydroxide/Mg Hydroxide (Magnesium Hydrox/Alum Hydrox 30 Ml Oral.Susp) 30 ml PO Q6H PRN PRN Reason: Heartburn/Nausea Last Admin: 07/19/21 13:53 Dose: 30 ml Documented by: Albuterol Sulfate (Albuterol Sulfate 90 Mcg 8 Gm Inhaler) 2 puff INHALE Q4H PRN PRN Reason: Shortness Of Breath Last Admin: 07/20/21 06:09 Dose: 2 puff Documented by: Atenolol (Atenolol 100 Mg Tablet) 100 mg PO DAILY [facility]; Protocol Last Admin: 07/20/21 09:11 Dose: 100 mg Documented by: Carisoprodol (Carisoprodol 350 Mg Tablet) 350 mg PO TID PRN PRN Reason: Muscle Spasm Last Admin: 07/19/21 09:24 Dose: 350 mg Documented by: Diazepam (Diazepam 5 Mg Tablet) 10 mg PO QID PRN PRN Reason: Anxiety Last Admin: 07/19/21 13:49 Dose: 10 mg Documented by: Docusate Sodium (Docusate Sodium 100 Mg Capsule) 100 mg PO BID [facility] Last Admin: 07/20/21 09:12 Dose: 100 mg Documented by: Duloxetine HCl (Duloxetine Hcl 30 Mg Capsule.) 90 mg PO DAILY [facility] Last Admin: 07/20/21 09:11 Dose: 90 mg Documented by: Hydroxyzine HCl (Hydroxyzine Hcl 25 Mg Tablet) 25 mg PO BEDTIME PRN PRN Reason: Anxiety Nicotine Polacrilex (Nicotine Polacrilex Lozenge 4 Mg Lozenge) 4 mg BUCCAL Q4H PRN PRN Reason: nicotine cravings Last Admin: 07/19/21 13:53 Dose: 4 mg Documented by: Nystatin (Nystatin Cream 15 Gm Tube) 1 appl TOPICAL BID [facility]; Protocol Last Admin: 07/20/21 09:12 Dose: Not Given Documented by: Omeprazole (Omeprazole 20 Mg Capsule.) 20 mg PO DAILY@0630 [facility] Last Admin: 07/20/21 06:09 Dose: 20 mg Documented by: Polyethylene Glycol (Polyethylene Glycol 3350 17 Gm Powd.Pack) 17 gm PO DAILY PRN PRN Reason: Constipation Trazodone HCl (Trazodone Hcl 100 Mg Tablet) 100 mg PO BEDTIME PRN PRN Reason: Insomnia Last Admin: 07/19/21 21:26 Dose: 100 mg Documented by: Allergies Allergies Allergy/AdvReac Type Severity Reaction Status Date / Time atorvastatin Allergy Intermediate Vomiting Verified 07/17/21 21:21 verapamil Allergy Intermediate Nausea Verified 07/17/21 21:20 zolpidem Allergy Intermediate Rash Verified 07/17/21 21:24 gabapentin Allergy Mild Nausea Verified 07/17/21 21:26 Iodinated Contrast Media Allergy Mild Constipatio Verified 07/17/21 21:27 [Contrast Dye] n niacin Allergy Mild Flushing Verified 07/17/21 21:23 oxybutynin Allergy Mild Dry Mucus Verified 07/17/21 21:26 Membranes Penicillins Allergy Mild Rash Verified 07/17/21 21:24 acetaminophen [From Percocet] Allergy Itching Verified 07/17/21 19:10 amoxicillin [From Augmentin] Allergy Rash Verified 07/17/21 21:19 aspirin [From Percodan] Allergy Chills Verified 07/17/21 21:20 cephalexin Allergy Rash Verified 07/17/21 21:22 clavulanic acid Allergy Rash Verified 07/17/21 21:19 [From Augmentin] codeine Allergy Itching Verified 07/17/21 19:11 oxycodone [From Percocet] Allergy Itching Verified 07/17/21 19:10 Telfa pad Allergy Mild Rash Uncoded 07/17/21 21:29 Assessment & Plan Assessment & Plan (1) Acute psychosis: Status: Acute Code(s): F23 - Brief psychotic disorder (2) Drug-induced psychotic disorder: Status: Acute Code(s): F19.959 - Other psychoactive substance use, unspecified with psychoactive substance-induced psychotic disorder, unspecified Plan The patient is a middle-aged female, single, with no children, with poor social support besides a friend, referred from crisis for psychotic symptoms elicited by bizarre delusions, self-harming behavior and inability to take care of herself with very poor hygiene due to her delusive thinking. Plan 1. Gather collateral information. 2. Continue medications as per med reconciliation form, continue Cymbalta 90 mg daily trazodone 100 mg p.o. q.h.s. and other medications. 3. Increase Haldol up to 2 mg po tid. I spent ___20___ minutes with the patient and/or on the patient floor today, greater than?50% of which was spent counseling/coordinating care. Patient educated on: therapeutic strategies Informed Consent: further education needed Reason for contiued inpatient stay Substantial Risk for: inability to function, rapid decompensation and med/psych decompensation
[2021-07-20] MEDS: HaloperidoL 1 MG TABLET 2 MG PO ×2 (15:50→20:33)
[2021-07-20] MEDS: Nystatin Cream 15 GM TUBE 1 APPL TOPICAL (20:33)
[2021-07-20] MEDS: traZODone HCL 100 MG TABLET PO (20:34)
[2021-07-20] MEDS: hydrOXYzine HCL 25 MG TABLET PO (20:34)
[2021-07-20 22:04] VITALS: BP 127/67; PULSE 64; RESP 18; TEMP 36.9; O2SAT 96
[2021-07-21] MEDS: Omeprazole 20 MG CAPSULE.DR PO (06:39)
--- NOTE | 2021-07-21 07:24 | HO.PSYCHPN ---
Subjective Subjective Date of Service: 07/21/21 Reason For Visit: Psychosis Subjective Notes: Conditional Voluntary Interim History: Pt very irritable today yelling at this screen writer as soon as I entered room stating that staff in hospital had lied to her and we are keeping her away from her therapy dog. She continues to report that baby dog teeth coming out of her skin, not questioning reality of this. No insight in terms of need for psych tx. Review of Systems Review of Systems Patient noncompliant at this time Yes Unobtainable due to mental status Mental Status Exam Mental Status Exam Patient Appearance: Disheveled Patient Orientation: Person Level of Consciousness: Awake Patient Behavior: Guarded and Cooperative Mood Description: Elated Affect Description: Labile Patient Cognition Impaired: Yes Ability to Follow Directions: Fair Speech Pattern: Clear Diagnostics Vital Signs (24Hr): Vital Signs - 24 hr 07/23/21 20:05 Temperature 97.9 F Pulse Rate 74 Respiratory Rate 18 Blood Pressure 101/50 L Pulse Oximetry 95 BMI result Body Mass Index 30.8 Labs Results: 07/17/21 20:10 07/19/21 07:54 Medications Medications Current Medications Al Hydroxide/Mg Hydroxide (Magnesium Hydrox/Alum Hydrox 30 Ml Oral.Susp) 30 ml PO Q6H PRN PRN Reason: Heartburn/Nausea Last Admin: 07/19/21 13:53 Dose: 30 ml Documented by: Albuterol Sulfate (Albuterol Sulfate 90 Mcg 8 Gm Inhaler) 2 puff INHALE Q4H PRN PRN Reason: Shortness Of Breath Last Admin: 07/24/21 04:54 Dose: 2 puff Documented by: Atenolol (Atenolol 100 Mg Tablet) 100 mg PO DAILY [facility]; Protocol Last Admin: 07/23/21 08:18 Dose: 100 mg Documented by: Docusate Sodium (Docusate Sodium 100 Mg Capsule) 100 mg PO BID [facility] Last Admin: 07/23/21 20:46 Dose: 100 mg Documented by: Duloxetine HCl (Duloxetine Hcl 60 Mg Capsule.Dr) 60 mg PO DAILY [facility] Last Admin: 07/23/21 10:16 Dose: 60 mg Documented by: Haloperidol (Haloperidol 5 Mg Tablet) 5 mg PO TID [facility] Last Admin: 07/23/21 20:46 Dose: 5 mg Documented by: Hydroxyzine HCl (Hydroxyzine Hcl 25 Mg Tablet) 25 mg PO BEDTIME PRN PRN Reason: Anxiety Last Admin: 07/21/21 22:58 Dose: 25 mg Documented by: Ibuprofen (Ibuprofen 600 Mg Tablet) 600 mg PO Q6H PRN PRN Reason: Pain, Moderate (Pain Scale 4-6 Last Admin: 07/23/21 12:23 Dose: 600 mg Documented by: Nicotine Polacrilex (Nicotine Polacrilex Lozenge 4 Mg Lozenge) 4 mg BUCCAL Q4H PRN PRN Reason: nicotine cravings Last Admin: 07/22/21 15:45 Dose: 4 mg Documented by: Nystatin (Nystatin Cream 15 Gm Tube) 1 appl TOPICAL BID [facility]; Protocol Last Admin: 07/23/21 20:46 Dose: 1 appl Documented by: Omeprazole (Omeprazole 20 Mg Capsule.Dr) 20 mg PO DAILY@0630 [facility] Last Admin: 07/24/21 05:37 Dose: 20 mg Documented by: Polyethylene Glycol (Polyethylene Glycol 3350 17 Gm Powd.Pack) 17 gm PO DAILY PRN PRN Reason: Constipation Last Admin: 07/24/21 05:35 Dose: 17 gm Documented by: Trazodone HCl (Trazodone Hcl 100 Mg Tablet) 100 mg PO BEDTIME PRN PRN Reason: Insomnia Last Admin: 07/22/21 20:13 Dose: 100 mg Documented by: Allergies Allergies Allergy/AdvReac Type Severity Reaction Status Date / Time atorvastatin Allergy Intermediate Vomiting Verified 07/17/21 21:21 verapamil Allergy Intermediate Nausea Verified 07/17/21 21:20 zolpidem Allergy Intermediate Rash Verified 07/17/21 21:24 gabapentin Allergy Mild Nausea Verified 07/17/21 21:26 Iodinated Contrast Media Allergy Mild Constipatio Verified 07/17/21 21:27 [Contrast Dye] n niacin Allergy Mild Flushing Verified 07/17/21 21:23 oxybutynin Allergy Mild Dry Mucus Verified 07/17/21 21:26 Membranes Penicillins Allergy Mild Rash Verified 07/17/21 21:24 acetaminophen [From Percocet] Allergy Itching Verified 07/17/21 19:10 amoxicillin [From Augmentin] Allergy Rash Verified 07/17/21 21:19 aspirin [From Percodan] Allergy Chills Verified 07/17/21 21:20 cephalexin Allergy Rash Verified 07/17/21 21:22 clavulanic acid Allergy Rash Verified 07/17/21 21:19 [From Augmentin] codeine Allergy Itching Verified 07/17/21 19:11 oxycodone [From Percocet] Allergy Itching Verified 07/17/21 19:10 Telfa pad Allergy Mild Rash Uncoded 07/17/21 21:29 Assessment & Plan Assessment & Plan (1) Acute psychosis: Status: Acute Code(s): F23 - Brief psychotic disorder (2) Drug-induced psychotic disorder: Status: Acute Code(s): F19.959 - Other psychoactive substance use, unspecified with psychoactive substance-induced psychotic disorder, unspecified Plan The patient is a middle-aged female, single, with no children, with poor social support besides a friend, referred from crisis for psychotic symptoms elicited by bizarre delusions, self-harming behavior and inability to take care of herself with very poor hygiene due to her delusive thinking. Plan 1. Gather collateral information. 2. Continue medications as per med reconciliation form, continue Cymbalta 90 mg daily trazodone 100 mg p.o. q.h.s. and other medications. 3. Increase Haldol up to 2 mg po tid. 3/4 continue current medications. I spent minutes with the patient and/or on the patient floor today, greater than?50% of which was spent counseling/coordinating care. Reason for contiued inpatient stay Substantial Risk for: harm to self and inability to function
[2021-07-21] MEDS: DULoxetine HCl 30 MG CAPSULE.DR 90 MG PO (08:39)
[2021-07-21] MEDS: diazePAM 5 MG TABLET 10 MG PO (08:40)
[2021-07-21] MEDS: Docusate Sodium 100 MG CAPSULE PO (08:40)
[2021-07-21] MEDS: HaloperidoL 1 MG TABLET 2 MG PO ×2 (09:18→22:58)
[2021-07-21] MEDS: Albuterol Sulfate 90 MCG 8 GM INHALER 2 PUFF INHALE ×3 (09:51→13:40)
[2021-07-21] MEDS: hydrOXYzine HCL 25 MG TABLET PO (22:58)
[2021-07-21] MEDS: traZODone HCL 100 MG TABLET PO (22:58)
[2021-07-22] MEDS: polyethylene glycoL 3350 17 GM POWD.PACK PO (05:08)
[2021-07-22] MEDS: diazePAM 5 MG TABLET 10 MG PO ×2 (05:08→09:17)
[2021-07-22] MEDS: Docusate Sodium 100 MG CAPSULE PO ×2 (05:08→20:13)
[2021-07-22] MEDS: Omeprazole 20 MG CAPSULE.DR PO (05:08)
[2021-07-22] MEDS: Albuterol Sulfate 90 MCG 8 GM INHALER 2 PUFF INHALE (05:09)
--- NOTE | 2021-07-22 07:27 | P.PNPSI_ITS ---
Subjective Subjective Date of Service: 07/22/21 Reason For Visit: Psychosis Interim History: Pt apologized for yelling at this teletypewriter installer day before. Pt continues to report that she was feeling baby teeth coming out and she needed to clean them out with vinegar. She reports she sanitized her entire apartment because these baby teeth were everywhere. She reports she must have eaten inadvertently and therefore baby teeth coming out of her skin, when asked if this was possible (if you swallow something usually not coming out of skin but in feces) pt does not seem to question this delusions. Pt denies SI/HI. She does not think she needs to be here in hospital and hopes to be discharged soon. Medication Compliance: Yes Review of Systems Review of Systems Patient noncompliant at this time Yes Unobtainable due to mental status Mental Status Exam Mental Status Exam Patient Appearance: Disheveled Patient Orientation: Person Level of Consciousness: Awake Patient Behavior: Guarded and Cooperative Mood Description: Elated Affect Description: Labile Patient Cognition Impaired: Yes Ability to Follow Directions: Fair Speech Pattern: Clear Diagnostics Vital Signs (24Hr): Vital Signs - 24 hr 07/23/21 20:05 Temperature 97.9 F Pulse Rate 74 Respiratory Rate 18 Blood Pressure 101/50 L Pulse Oximetry 95 BMI result Body Mass Index 30.8 Labs Results: 07/17/21 20:10 07/19/21 07:54 Medications Medications Current Medications Al Hydroxide/Mg Hydroxide (Magnesium Hydrox/Alum Hydrox 30 Ml Oral.Susp) 30 ml PO Q6H PRN PRN Reason: Heartburn/Nausea Last Admin: 07/19/21 13:53 Dose: 30 ml Documented by: Albuterol Sulfate (Albuterol Sulfate 90 Mcg 8 Gm Inhaler) 2 puff INHALE Q4H PRN PRN Reason: Shortness Of Breath Last Admin: 07/24/21 04:54 Dose: 2 puff Documented by: Atenolol (Atenolol 100 Mg Tablet) 100 mg PO DAILY [facility]; Protocol Last Admin: 07/23/21 08:18 Dose: 100 mg Documented by: Docusate Sodium (Docusate Sodium 100 Mg Capsule) 100 mg PO BID [facility] Last Admin: 07/23/21 20:46 Dose: 100 mg Documented by: Duloxetine HCl (Duloxetine Hcl 60 Mg Capsule.) 60 mg PO DAILY [facility] Last Admin: 07/23/21 10:16 Dose: 60 mg Documented by: Haloperidol (Haloperidol 5 Mg Tablet) 5 mg PO TID [facility] Last Admin: 07/23/21 20:46 Dose: 5 mg Documented by: Hydroxyzine HCl (Hydroxyzine Hcl 25 Mg Tablet) 25 mg PO BEDTIME PRN PRN Reason: Anxiety Last Admin: 07/21/21 22:58 Dose: 25 mg Documented by: Ibuprofen (Ibuprofen 600 Mg Tablet) 600 mg PO Q6H PRN PRN Reason: Pain, Moderate (Pain Scale 4-6 Last Admin: 07/23/21 12:23 Dose: 600 mg Documented by: Nicotine Polacrilex (Nicotine Polacrilex Lozenge 4 Mg Lozenge) 4 mg BUCCAL Q4H PRN PRN Reason: nicotine cravings Last Admin: 07/22/21 15:45 Dose: 4 mg Documented by: Nystatin (Nystatin Cream 15 Gm Tube) 1 appl TOPICAL BID [facility]; Protocol Last Admin: 07/23/21 20:46 Dose: 1 appl Documented by: Omeprazole (Omeprazole 20 Mg Capsule.Dr) 20 mg PO DAILY@0630 [facility] Last Admin: 07/24/21 05:37 Dose: 20 mg Documented by: Polyethylene Glycol (Polyethylene Glycol 3350 17 Gm Powd.Pack) 17 gm PO DAILY PRN PRN Reason: Constipation Last Admin: 07/24/21 05:35 Dose: 17 gm Documented by: Trazodone HCl (Trazodone Hcl 100 Mg Tablet) 100 mg PO BEDTIME PRN PRN Reason: Insomnia Last Admin: 07/22/21 20:13 Dose: 100 mg Documented by: Allergies Allergies Allergy/AdvReac Type Severity Reaction Status Date / Time atorvastatin Allergy Intermediate Vomiting Verified 07/17/21 21:21 verapamil Allergy Intermediate Nausea Verified 07/17/21 21:20 zolpidem Allergy Intermediate Rash Verified 07/17/21 21:24 gabapentin Allergy Mild Nausea Verified 07/17/21 21:26 Iodinated Contrast Media Allergy Mild Constipatio Verified 07/17/21 21:27 [Contrast Dye] n niacin Allergy Mild Flushing Verified 07/17/21 21:23 oxybutynin Allergy Mild Dry Mucus Verified 07/17/21 21:26 Membranes Penicillins Allergy Mild Rash Verified 07/17/21 21:24 acetaminophen [From Percocet] Allergy Itching Verified 07/17/21 19:10 amoxicillin [From Augmentin] Allergy Rash Verified 07/17/21 21:19 aspirin [From Percodan] Allergy Chills Verified 07/17/21 21:20 cephalexin Allergy Rash Verified 07/17/21 21:22 clavulanic acid Allergy Rash Verified 07/17/21 21:19 [From Augmentin] codeine Allergy Itching Verified 07/17/21 19:11 oxycodone [From Percocet] Allergy Itching Verified 07/17/21 19:10 Telfa pad Allergy Mild Rash Uncoded 07/17/21 21:29 Assessment & Plan Assessment & Plan (1) Acute psychosis: Status: Acute Code(s): F23 - Brief psychotic disorder (2) Drug-induced psychotic disorder: Status: Acute Code(s): F19.959 - Other psychoactive substance use, unspecified with psychoactive substance-induced psychotic disorder, unspecified Plan The patient is a middle-aged female, single, with no children, with poor social support besides a friend, referred from crisis for psychotic symptoms elicited by bizarre delusions, self-harming behavior and inability to take care of herself with very poor hygiene due to her delusive thinking. Plan 1. Gather collateral information. 2. Continue medications as per med reconciliation form, continue Cymbalta 90 mg daily trazodone 100 mg p.o. q.h.s. and other medications. 3. Increase Haldol up to 2 mg po tid. 3/4 continue current medications. 3/5 increase haldol to 5mg po tid, decrease cymbalta to 60mg po daily. I spent minutes with the patient and/or on the patient floor today, greater than?50% of which was spent counseling/coordinating care. Reason for contiued inpatient stay Substantial Risk for: harm to self and inability to function
[2021-07-22] MEDS: DULoxetine HCl 30 MG CAPSULE.DR 90 MG PO (09:16)
[2021-07-22] MEDS: HaloperidoL 1 MG TABLET 2 MG PO ×3 (09:16→20:13)
[2021-07-22] MEDS: atenoloL 100 MG TABLET PO (09:16)
[2021-07-22] MEDS: Nicotine Polacrilex Lozenge 4 MG LOZENGE BUCCAL (15:45)
[2021-07-22 20:00] VITALS: BP 112/63; PULSE 69; RESP 17; TEMP 36.6; O2SAT 100
[2021-07-22] MEDS: traZODone HCL 100 MG TABLET PO (20:13)
[2021-07-22] MEDS: carisoprodoL 350 MG TABLET PO (20:22)
[2021-07-22] MEDS: Nystatin Cream 15 GM TUBE 1 APPL TOPICAL (20:23)
[2021-07-23 06:00] VITALS: BP 139/88; PULSE 75; RESP 18; TEMP 36.1; O2SAT 99
[2021-07-23] MEDS: Omeprazole 20 MG CAPSULE.DR PO (06:29)
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
[2021-07-23] MEDS: HaloperidoL 1 MG TABLET 2 MG PO (08:18)
[2021-07-23] MEDS: DULoxetine HCl 30 MG CAPSULE.DR 90 MG PO (08:18)
[2021-07-23] MEDS: Docusate Sodium 100 MG CAPSULE PO ×2 (08:18→20:46)
[2021-07-23] MEDS: atenoloL 100 MG TABLET PO (08:18)
[2021-07-23] MEDS: polyethylene glycoL 3350 17 GM POWD.PACK PO (08:19)
[2021-07-23] MEDS: DULoxetine HCl 60 MG CAPSULE.DR PO (10:16)
[2021-07-23] MEDS: HaloperidoL 5 MG TABLET PO ×2 (10:16→20:46)
[2021-07-23] MEDS: Ibuprofen 600 MG TABLET PO (12:23)
[2021-07-23 20:05] VITALS: BP 101/50; PULSE 74; RESP 18; TEMP 36.6; O2SAT 95
[2021-07-23] MEDS: Nystatin Cream 15 GM TUBE 1 APPL TOPICAL (20:46)
[2021-07-24] MEDS: Albuterol Sulfate 90 MCG 8 GM INHALER 2 PUFF INHALE (04:54)
[2021-07-24] MEDS: polyethylene glycoL 3350 17 GM POWD.PACK PO (05:35)
[2021-07-24] MEDS: Omeprazole 20 MG CAPSULE.DR PO (05:37)
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
[2021-07-24] MEDS: HaloperidoL 5 MG TABLET PO ×2 (15:47→21:14)
[2021-07-24 18:00] VITALS: BP 130/72; PULSE 69; RESP 18; TEMP 36.5; O2SAT 96
[2021-07-24] MEDS: Docusate Sodium 100 MG CAPSULE PO (21:14)
[2021-07-25] MEDS: Omeprazole 20 MG CAPSULE.DR PO (05:41)
[2021-07-25] MEDS: Albuterol Sulfate 90 MCG 8 GM INHALER 2 PUFF INHALE ×2 (06:15→10:46)
[2021-07-25 07:50] VITALS: BP 170/79; PULSE 83; RESP 15; TEMP 36.6; O2SAT 98
[2021-07-25] MEDS: DULoxetine HCl 60 MG CAPSULE.DR PO (08:48)
[2021-07-25] MEDS: atenoloL 100 MG TABLET PO (08:48)
[2021-07-25] MEDS: Docusate Sodium 100 MG CAPSULE PO ×2 (08:49→20:57)
[2021-07-25] MEDS: Nystatin Cream 15 GM TUBE 1 APPL TOPICAL ×2 (08:49→21:01)
[2021-07-25] MEDS: HaloperidoL 5 MG TABLET PO ×3 (08:49→20:57)
--- NOTE | 2021-07-25 12:54 | P.PNPSI_ITS ---
Subjective Subjective Date of Service: 07/25/21 Reason For Visit: Psychosis Subjective Notes: Conditional Voluntary Interim History: Pt reports she thinks God design her dog just for her. She reports she is like God. Less ideas of teeth coming out of skin. No SI/HI. Less irritable, but little insight as to need for continued psych treatment. She denies hearing voices. Medication Compliance: Yes Side effects from medications: No Review of Systems Review of Systems Patient noncompliant at this time Yes Unobtainable due to mental status Mental Status Exam Mental Status Exam Patient Appearance: Disheveled Patient Orientation: Person Level of Consciousness: Awake Patient Behavior: Guarded and Cooperative Mood Description: Elated Affect Description: Labile Patient Cognition Impaired: Yes Ability to Follow Directions: Fair Speech Pattern: Clear Diagnostics Vital Signs (24Hr): Vital Signs - 24 hr 07/27/21 18:40 07/28/21 08:00 Temperature 97 F 97.9 F Pulse Rate 77 70 Respiratory Rate 18 12 Blood Pressure 100/58 L 142/79 H Pulse Oximetry 97 100 BMI result Body Mass Index 32.1 Labs Results: 07/17/21 20:10 07/19/21 07:54 Imaging Radiology Impressions: ITS Impressions Chest CT 07/25/21 21:05 IMPRESSION: Mild emphysema. Patchy areas of groundglass attenuation in the right upper lobe questionable for pneumonitis. Small calcified and noncalcified pulmonary nodules, largest measuring 6 mm. According to the UPDATED 2017 Fleischner Society recommendations, the advised follow-up imaging for 6 mm nodule: Chest CT follow-up in one year. Coronary artery calcification. Fleischner guidelines were followed. Brain MRI 07/26/21 09:56 IMPRESSION: No acute intracranial process. Mild chronic white matter microangiopathy and moderate generalized parenchymal volume loss. Medications Medications Current Medications Al Hydroxide/Mg Hydroxide (Magnesium Hydrox/Alum Hydrox 30 Ml Oral.Susp) 30 ml PO Q6H PRN PRN Reason: Heartburn/Nausea Last Admin: 07/19/21 13:53 Dose: 30 ml Documented by: Albuterol Sulfate (Albuterol Sulfate 90 Mcg 8 Gm Inhaler) 2 puff INHALE Q4H PRN PRN Reason: Shortness Of Breath Last Admin: 07/28/21 09:13 Dose: 2 puff Documented by: Atenolol (Atenolol 100 Mg Tablet) 100 mg PO DAILY [facility]; Protocol Last Admin: 07/28/21 09:12 Dose: 100 mg Documented by: Carisoprodol (Carisoprodol 350 Mg Tablet) 350 mg PO TID PRN PRN Reason: Muscle Spasm Last Admin: 07/27/21 22:03 Dose: 350 mg Documented by: Docusate Sodium (Docusate Sodium 100 Mg Capsule) 100 mg PO BID [facility] Last Admin: 07/28/21 09:12 Dose: 100 mg Documented by: Duloxetine HCl (Duloxetine Hcl 60 Mg Capsule.) 60 mg PO DAILY [facility] Last Admin: 07/28/21 09:12 Dose: 60 mg Documented by: Haloperidol (Haloperidol 5 Mg Tablet) 5 mg PO TID [facility] Last Admin: 07/28/21 09:12 Dose: 5 mg Documented by: Hydroxyzine HCl (Hydroxyzine Hcl 25 Mg Tablet) 25 mg PO BEDTIME PRN PRN Reason: Anxiety Last Admin: 07/28/21 00:58 Dose: 25 mg Documented by: Ibuprofen (Ibuprofen 600 Mg Tablet) 600 mg PO Q6H PRN PRN Reason: Pain, Moderate (Pain Scale 4-6 Last Admin: 07/26/21 21:28 Dose: 600 mg Documented by: Nicotine Polacrilex (Nicotine Polacrilex Lozenge 4 Mg Lozenge) 4 mg BUCCAL Q4H PRN PRN Reason: nicotine cravings Last Admin: 07/28/21 09:17 Dose: 4 mg Documented by: Nystatin (Nystatin Cream 15 Gm Tube) 1 appl TOPICAL BID [facility]; Protocol Last Admin: 07/28/21 09:18 Dose: Not Given Documented by: Olanzapine (Olanzapine 10 Mg Tablet) 10 mg PO Q6H PRN PRN Reason: agitation Omeprazole (Omeprazole 20 Mg Capsule.) 20 mg PO DAILY@0630 [facility] Last Admin: 07/28/21 05:59 Dose: 20 mg Documented by: Polyethylene Glycol (Polyethylene Glycol 3350 17 Gm Powd.Pack) 17 gm PO DAILY PRN PRN Reason: Constipation Last Admin: 07/24/21 05:35 Dose: 17 gm Documented by: Trazodone HCl (Trazodone Hcl 100 Mg Tablet) 100 mg PO BEDTIME PRN PRN Reason: Insomnia Last Admin: 07/27/21 21:00 Dose: 100 mg Documented by: Allergies Allergies Allergy/AdvReac Type Severity Reaction Status Date / Time atorvastatin Allergy Intermediate Vomiting Verified 07/17/21 21:21 verapamil Allergy Intermediate Nausea Verified 07/17/21 21:20 zolpidem Allergy Intermediate Rash Verified 07/17/21 21:24 gabapentin Allergy Mild Nausea Verified 07/17/21 21:26 Iodinated Contrast Media Allergy Mild Constipatio Verified 07/17/21 21:27 [Contrast Dye] n niacin Allergy Mild Flushing Verified 07/17/21 21:23 oxybutynin Allergy Mild Dry Mucus Verified 07/17/21 21:26 Membranes Penicillins Allergy Mild Rash Verified 07/17/21 21:24 acetaminophen [From Percocet] Allergy Itching Verified 07/17/21 19:10 amoxicillin [From Augmentin] Allergy Rash Verified 07/17/21 21:19 aspirin [From Percodan] Allergy Chills Verified 07/17/21 21:20 cephalexin Allergy Rash Verified 07/17/21 21:22 clavulanic acid Allergy Rash Verified 07/17/21 21:19 [From Augmentin] codeine Allergy Itching Verified 07/17/21 19:11 oxycodone [From Percocet] Allergy Itching Verified 07/17/21 19:10 Telfa pad Allergy Mild Rash Uncoded 07/17/21 21:29 Assessment & Plan Assessment & Plan (1) Delusional disorder: Status: Acute Code(s): F22 - Delusional disorders Plan The patient is a middle-aged female, single, with no children, with poor social support besides a friend, referred from crisis for psychotic symptoms elicited by bizarre delusions, self-harming behavior and inability to take care of herself with very poor hygiene due to her delusive thinking. Collateral information gathered from her OP psychiatrist Dr. Luke Wilkins ([phone]) reports pt with paranoid statement for several years. No inpt admission. No recent antipsychotic rx. He has not seen her seen 2020. After pt has declined to be seen due to paranoia. Dr. Gardner does report that pt this severity of delusional content is new but some underlying present for years. Plan 1. Gather collateral information. 2. Continue medications as per med reconciliation form, continue Cymbalta 90 mg daily trazodone 100 mg p.o. q.h.s. and other medications. 3. Increase Haldol up to 2 mg po tid. 07/21 continue current medications. 07/22 increase haldol to 5mg po tid, decrease cymbalta to 60mg po daily. 07/23/ continue current medications. 07/24 continue current medications. [facility] due to hx of agitation, verbal threats, [facility] reporting that [facility] several with paranoid delusions. 07/26 continue haldol. I spent minutes with the patient and/or on the patient floor today, greater than?50% of which was spent counseling/coordinating care. Reason for contiued inpatient stay Substantial Risk for: inability to function
[2021-07-25] MEDS: traZODone HCL 100 MG TABLET PO (21:01)
[2021-07-25 21:30] VITALS: BP 143/67; PULSE 67; RESP 18; TEMP 36.1; O2SAT 98
[2021-07-26] MEDS: Omeprazole 20 MG CAPSULE.DR PO (04:56)
[2021-07-26] MEDS: Albuterol Sulfate 90 MCG 8 GM INHALER 2 PUFF INHALE (05:55)
[2021-07-26 06:00] VITALS: BP 192/95; PULSE 68; RESP 12; TEMP 36.6; O2SAT 100
[2021-07-26] MEDS: Nicotine Polacrilex Lozenge 4 MG LOZENGE BUCCAL ×4 (06:21→17:27)
[2021-07-26] MEDS: Docusate Sodium 100 MG CAPSULE PO ×2 (08:39→21:20)
[2021-07-26] MEDS: HaloperidoL 5 MG TABLET PO ×3 (08:39→21:20)
[2021-07-26] MEDS: atenoloL 100 MG TABLET PO (08:39)
[2021-07-26] MEDS: DULoxetine HCl 60 MG CAPSULE.DR PO (08:39)
[2021-07-26] MEDS: diazePAM 5 MG TABLET 10 MG PO (09:06)
--- NOTE | 2021-07-26 12:46 | P.PNPSI_ITS ---
Subjective Subjective Date of Service: 07/25/21 Reason For Visit: Psychosis Subjective Notes: Conditional Voluntary Interim History: Pt less irritable. She continues to report that teeth are coming out of her skin. She states she can't see them but still feels one coming out of left wrist. She agrees to have MRI done. She is taking haldol as prescribed. No EPS noted. She reports nightmares but declines taking medications for it. She is visible in the unit, social with select peers, wants to leave soon. No behavioral concerns. Medication Compliance: Yes Side effects from medications: No Review of Systems Review of Systems Patient noncompliant at this time Yes Unobtainable due to mental status Mental Status Exam Mental Status Exam Patient Appearance: Disheveled Patient Orientation: Person Level of Consciousness: Awake Patient Behavior: Guarded and Cooperative Mood Description: Elated Affect Description: Labile Patient Cognition Impaired: Yes Ability to Follow Directions: Fair Speech Pattern: Clear Diagnostics Vital Signs (24Hr): Vital Signs - 24 hr 07/27/21 18:40 07/28/21 08:00 Temperature 97 F 97.9 F Pulse Rate 77 70 Respiratory Rate 18 12 Blood Pressure 100/58 L 142/79 H Pulse Oximetry 97 100 BMI result Body Mass Index 32.1 Labs Results: 07/17/21 20:10 07/19/21 07:54 Imaging Radiology Impressions: ITS Impressions Chest CT 07/25/21 21:05 IMPRESSION: Mild emphysema. Patchy areas of groundglass attenuation in the right upper lobe questionable for pneumonitis. Small calcified and noncalcified pulmonary nodules, largest measuring 6 mm. According to the UPDATED 2017 Fleischner Society recommendations, the advised follow-up imaging for 6 mm nodule: Chest CT follow-up in one year. Coronary artery calcification. Fleischner guidelines were followed. Brain MRI 07/26/21 09:56 IMPRESSION: No acute intracranial process. Mild chronic white matter microangiopathy and moderate generalized parenchymal volume loss. Medications Medications Current Medications Al Hydroxide/Mg Hydroxide (Magnesium Hydrox/Alum Hydrox 30 Ml Oral.Susp) 30 ml PO Q6H PRN PRN Reason: Heartburn/Nausea Last Admin: 07/19/21 13:53 Dose: 30 ml Documented by: Albuterol Sulfate (Albuterol Sulfate 90 Mcg 8 Gm Inhaler) 2 puff INHALE Q4H PRN PRN Reason: Shortness Of Breath Last Admin: 07/28/21 09:13 Dose: 2 puff Documented by: Atenolol (Atenolol 100 Mg Tablet) 100 mg PO DAILY [facility]; Protocol Last Admin: 07/28/21 09:12 Dose: 100 mg Documented by: Carisoprodol (Carisoprodol 350 Mg Tablet) 350 mg PO TID PRN PRN Reason: Muscle Spasm Last Admin: 07/27/21 22:03 Dose: 350 mg Documented by: Docusate Sodium (Docusate Sodium 100 Mg Capsule) 100 mg PO BID [facility] Last Admin: 07/28/21 09:12 Dose: 100 mg Documented by: Duloxetine HCl (Duloxetine Hcl 60 Mg Capsule.) 60 mg PO DAILY [facility] Last Admin: 07/28/21 09:12 Dose: 60 mg Documented by: Haloperidol (Haloperidol 5 Mg Tablet) 5 mg PO TID [facility] Last Admin: 07/28/21 09:12 Dose: 5 mg Documented by: Hydroxyzine HCl (Hydroxyzine Hcl 25 Mg Tablet) 25 mg PO BEDTIME PRN PRN Reason: Anxiety Last Admin: 07/28/21 00:58 Dose: 25 mg Documented by: Ibuprofen (Ibuprofen 600 Mg Tablet) 600 mg PO Q6H PRN PRN Reason: Pain, Moderate (Pain Scale 4-6 Last Admin: 07/26/21 21:28 Dose: 600 mg Documented by: Nicotine Polacrilex (Nicotine Polacrilex Lozenge 4 Mg Lozenge) 4 mg BUCCAL Q4H PRN PRN Reason: nicotine cravings Last Admin: 07/28/21 09:17 Dose: 4 mg Documented by: Nystatin (Nystatin Cream 15 Gm Tube) 1 appl TOPICAL BID [facility]; Protocol Last Admin: 07/28/21 09:18 Dose: Not Given Documented by: Olanzapine (Olanzapine 10 Mg Tablet) 10 mg PO Q6H PRN PRN Reason: agitation Omeprazole (Omeprazole 20 Mg Capsule.) 20 mg PO DAILY@0630 [facility] Last Admin: 07/28/21 05:59 Dose: 20 mg Documented by: Polyethylene Glycol (Polyethylene Glycol 3350 17 Gm Powd.Pack) 17 gm PO DAILY PRN PRN Reason: Constipation Last Admin: 07/24/21 05:35 Dose: 17 gm Documented by: Trazodone HCl (Trazodone Hcl 100 Mg Tablet) 100 mg PO BEDTIME PRN PRN Reason: Insomnia Last Admin: 07/27/21 21:00 Dose: 100 mg Documented by: Allergies Allergies Allergy/AdvReac Type Severity Reaction Status Date / Time atorvastatin Allergy Intermediate Vomiting Verified 07/17/21 21:21 verapamil Allergy Intermediate Nausea Verified 07/17/21 21:20 zolpidem Allergy Intermediate Rash Verified 07/17/21 21:24 gabapentin Allergy Mild Nausea Verified 07/17/21 21:26 Iodinated Contrast Media Allergy Mild Constipatio Verified 07/17/21 21:27 [Contrast Dye] n niacin Allergy Mild Flushing Verified 07/17/21 21:23 oxybutynin Allergy Mild Dry Mucus Verified 07/17/21 21:26 Membranes Penicillins Allergy Mild Rash Verified 07/17/21 21:24 acetaminophen [From Percocet] Allergy Itching Verified 07/17/21 19:10 amoxicillin [From Augmentin] Allergy Rash Verified 07/17/21 21:19 aspirin [From Percodan] Allergy Chills Verified 07/17/21 21:20 cephalexin Allergy Rash Verified 07/17/21 21:22 clavulanic acid Allergy Rash Verified 07/17/21 21:19 [From Augmentin] codeine Allergy Itching Verified 07/17/21 19:11 oxycodone [From Percocet] Allergy Itching Verified 07/17/21 19:10 Telfa pad Allergy Mild Rash Uncoded 07/17/21 21:29 Assessment & Plan Assessment & Plan (1) Delusional disorder: Status: Acute Code(s): F22 - Delusional disorders Plan The patient is a middle-aged female, single, with no children, with poor social support besides a friend, referred from crisis for psychotic symptoms elicited by bizarre delusions, self-harming behavior and inability to take care of herself with very poor hygiene due to her delusive thinking. Collateral information gathered from her OP psychiatrist Dr. Luke Wilkins ([phone]) reports pt with paranoid statement for several years. No inpt admission. No recent antipsychotic rx. He has not seen her seen 2020. After pt has declined to be seen due to paranoia. Dr. Gardner does report that pt this severity of delusional content is new but some underlying present for years. Plan 1. Gather collateral information. 2. Continue medications as per med reconciliation form, continue Cymbalta 90 mg daily trazodone 100 mg p.o. q.h.s. and other medications. 3. Increase Haldol up to 2 mg po tid. 3/ continue current medications. 07/22 increase haldol to 5mg po tid, decrease cymbalta to 60mg po daily. 07/23/ continue current medications. 07/24 continue current medications. [facility] due to hx of agitation, verbal threats, [facility] reporting that [facility] several with paranoid delusions. I spent minutes with the patient and/or on the patient floor today, greater than?50% of which was spent counseling/coordinating care. Reason for contiued inpatient stay Substantial Risk for: inability to function
[2021-07-26 20:53] VITALS: BP 111/56; PULSE 62; RESP 17; TEMP 36.3; O2SAT 96
[2021-07-26] MEDS: Ibuprofen 600 MG TABLET PO (21:28)
[2021-07-26] MEDS: traZODone HCL 100 MG TABLET PO (21:28)
[2021-07-27] MEDS: hydrOXYzine HCL 25 MG TABLET PO (04:08)
[2021-07-27] MEDS: Omeprazole 20 MG CAPSULE.DR PO (05:37)
[2021-07-27 06:00] VITALS: BP 168/75; PULSE 68; RESP 14; TEMP 37.2; O2SAT 99
[2021-07-27] MEDS: Nicotine Polacrilex Lozenge 4 MG LOZENGE BUCCAL (06:08)
[2021-07-27 07:00] VITALS: BMI 32.1
[2021-07-27] MEDS: HaloperidoL 5 MG TABLET PO ×2 (09:14→20:59)
[2021-07-27] MEDS: DULoxetine HCl 60 MG CAPSULE.DR PO (09:14)
[2021-07-27] MEDS: atenoloL 100 MG TABLET PO (09:14)
[2021-07-27] MEDS: Docusate Sodium 100 MG CAPSULE PO ×2 (09:14→20:59)
--- NOTE | 2021-07-27 12:51 | P.PNPSI_ITS ---
Subjective Subjective Date of Service: 07/27/21 Reason For Visit: Psychosis Subjective Notes: Conditional Voluntary Interim History: Pt less irritable. She reports she wants to go home and bathe in vinegar. She does not think any more teeth are coming out but does not questioned that they did. She denies SI/HI. Much less threatening but states she wants to go back home soon. Les paranoid towards others or need to take on [place]. She does report that she thinks she is God. Pt takes medications, no side effects. Medication Compliance: Yes Side effects from medications: No Review of Systems Review of Systems Patient noncompliant at this time Yes Unobtainable due to mental status Mental Status Exam Mental Status Exam Patient Appearance: Disheveled Patient Orientation: Person Level of Consciousness: Awake Patient Behavior: Guarded and Cooperative Mood Description: Elated Affect Description: Labile Patient Cognition Impaired: Yes Ability to Follow Directions: Fair Speech Pattern: Clear Diagnostics Vital Signs (24Hr): Vital Signs - 24 hr 07/27/21 18:40 07/28/21 08:00 Temperature 97 F 97.9 F Pulse Rate 77 70 Respiratory Rate 18 12 Blood Pressure 100/58 L 142/79 H Pulse Oximetry 97 100 BMI result Body Mass Index 32.1 Labs Results: 07/17/21 20:10 07/19/21 07:54 Imaging Radiology Impressions: ITS Impressions Chest CT 07/25/21 21:05 IMPRESSION: Mild emphysema. Patchy areas of groundglass attenuation in the right upper lobe questionable for pneumonitis. Small calcified and noncalcified pulmonary nodules, largest measuring 6 mm. According to the UPDATED 2017 Fleischner Society recommendations, the advised follow-up imaging for 6 mm nodule: Chest CT follow-up in one year. Coronary artery calcification. Fleischner guidelines were followed. Brain MRI 07/26/21 09:56 IMPRESSION: No acute intracranial process. Mild chronic white matter microangiopathy and moderate generalized parenchymal volume loss. Medications Medications Current Medications Al Hydroxide/Mg Hydroxide (Magnesium Hydrox/Alum Hydrox 30 Ml Oral.Susp) 30 ml PO Q6H PRN PRN Reason: Heartburn/Nausea Last Admin: 07/19/21 13:53 Dose: 30 ml Documented by: Albuterol Sulfate (Albuterol Sulfate 90 Mcg 8 Gm Inhaler) 2 puff INHALE Q4H PRN PRN Reason: Shortness Of Breath Last Admin: 07/28/21 09:13 Dose: 2 puff Documented by: Atenolol (Atenolol 100 Mg Tablet) 100 mg PO DAILY [facility]; Protocol Last Admin: 07/28/21 09:12 Dose: 100 mg Documented by: Carisoprodol (Carisoprodol 350 Mg Tablet) 350 mg PO TID PRN PRN Reason: Muscle Spasm Last Admin: 07/27/21 22:03 Dose: 350 mg Documented by: Docusate Sodium (Docusate Sodium 100 Mg Capsule) 100 mg PO BID [facility] Last Admin: 07/28/21 09:12 Dose: 100 mg Documented by: Duloxetine HCl (Duloxetine Hcl 60 Mg Capsule.) 60 mg PO DAILY [facility] Last Admin: 07/28/21 09:12 Dose: 60 mg Documented by: Haloperidol (Haloperidol 5 Mg Tablet) 5 mg PO TID [facility] Last Admin: 07/28/21 09:12 Dose: 5 mg Documented by: Hydroxyzine HCl (Hydroxyzine Hcl 25 Mg Tablet) 25 mg PO BEDTIME PRN PRN Reason: Anxiety Last Admin: 07/28/21 00:58 Dose: 25 mg Documented by: Ibuprofen (Ibuprofen 600 Mg Tablet) 600 mg PO Q6H PRN PRN Reason: Pain, Moderate (Pain Scale 4-6 Last Admin: 07/26/21 21:28 Dose: 600 mg Documented by: Nicotine Polacrilex (Nicotine Polacrilex Lozenge 4 Mg Lozenge) 4 mg BUCCAL Q4H PRN PRN Reason: nicotine cravings Last Admin: 07/28/21 09:17 Dose: 4 mg Documented by: Nystatin (Nystatin Cream 15 Gm Tube) 1 appl TOPICAL BID [facility]; Protocol Last Admin: 07/28/21 09:18 Dose: Not Given Documented by: Olanzapine (Olanzapine 10 Mg Tablet) 10 mg PO Q6H PRN PRN Reason: agitation Omeprazole (Omeprazole 20 Mg Capsule.) 20 mg PO DAILY@0630 [facility] Last Admin: 07/28/21 05:59 Dose: 20 mg Documented by: Polyethylene Glycol (Polyethylene Glycol 3350 17 Gm Powd.Pack) 17 gm PO DAILY PRN PRN Reason: Constipation Last Admin: 07/24/21 05:35 Dose: 17 gm Documented by: Trazodone HCl (Trazodone Hcl 100 Mg Tablet) 100 mg PO BEDTIME PRN PRN Reason: Insomnia Last Admin: 07/27/21 21:00 Dose: 100 mg Documented by: Allergies Allergies Allergy/AdvReac Type Severity Reaction Status Date / Time atorvastatin Allergy Intermediate Vomiting Verified 07/17/21 21:21 verapamil Allergy Intermediate Nausea Verified 07/17/21 21:20 zolpidem Allergy Intermediate Rash Verified 07/17/21 21:24 gabapentin Allergy Mild Nausea Verified 07/17/21 21:26 Iodinated Contrast Media Allergy Mild Constipatio Verified 07/17/21 21:27 [Contrast Dye] n niacin Allergy Mild Flushing Verified 07/17/21 21:23 oxybutynin Allergy Mild Dry Mucus Verified 07/17/21 21:26 Membranes Penicillins Allergy Mild Rash Verified 07/17/21 21:24 acetaminophen [From Percocet] Allergy Itching Verified 07/17/21 19:10 amoxicillin [From Augmentin] Allergy Rash Verified 07/17/21 21:19 aspirin [From Percodan] Allergy Chills Verified 07/17/21 21:20 cephalexin Allergy Rash Verified 07/17/21 21:22 clavulanic acid Allergy Rash Verified 07/17/21 21:19 [From Augmentin] codeine Allergy Itching Verified 07/17/21 19:11 oxycodone [From Percocet] Allergy Itching Verified 07/17/21 19:10 Telfa pad Allergy Mild Rash Uncoded 07/17/21 21:29 Assessment & Plan Assessment & Plan (1) Delusional disorder: Status: Acute Code(s): F22 - Delusional disorders Plan The patient is a middle-aged female, single, with no children, with poor social support besides a friend, referred from crisis for psychotic symptoms elicited by bizarre delusions, self-harming behavior and inability to take care of herself with very poor hygiene due to her delusive thinking. Collateral information gathered from her OP psychiatrist Dr. Luke Wilkins ([phone]) reports pt with paranoid statement for several years. No inpt admission. No recent antipsychotic rx. He has not seen her seen 2020. After pt has declined to be seen due to paranoia. Dr. Gardner does report that pt this severity of delusional content is new but some underlying present for years. Plan 1. Gather collateral information. 2. Continue medications as per med reconciliation form, continue Cymbalta 90 mg daily trazodone 100 mg p.o. q.h.s. and other medications. 3. Increase Haldol up to 2 mg po tid. 07/21 continue current medications. 07/22 increase haldol to 5mg po tid, decrease cymbalta to 60mg po daily. 07/23/ continue current medications. 07/24 continue current medications. [facility] due to hx of agitation, verbal threats, [facility] reporting that [facility] several with paranoid delusions. 07/26 continue haldol. I spent minutes with the patient and/or on the patient floor today, greater than?50% of which was spent counseling/coordinating care. Reason for contiued inpatient stay Substantial Risk for: inability to function
[2021-07-27 18:40] VITALS: BP 100/58; PULSE 77; RESP 18; TEMP 36.1; O2SAT 97
[2021-07-27] MEDS: traZODone HCL 100 MG TABLET PO (21:00)
[2021-07-27] MEDS: carisoprodoL 350 MG TABLET PO (22:03)
[2021-07-28] MEDS: hydrOXYzine HCL 25 MG TABLET PO (00:58)
[2021-07-28] MEDS: Omeprazole 20 MG CAPSULE.DR PO (05:59)
[2021-07-28] MEDS: Nicotine Polacrilex Lozenge 4 MG LOZENGE BUCCAL ×3 (06:05→14:39)
[2021-07-28 08:00] VITALS: BP 142/79; PULSE 70; RESP 12; TEMP 36.6; O2SAT 100
[2021-07-28] MEDS: HaloperidoL 5 MG TABLET PO ×3 (09:12→19:24)
[2021-07-28] MEDS: atenoloL 100 MG TABLET PO (09:12)
[2021-07-28] MEDS: DULoxetine HCl 60 MG CAPSULE.DR PO (09:12)
[2021-07-28] MEDS: Docusate Sodium 100 MG CAPSULE PO ×2 (09:12→19:23)
[2021-07-28] MEDS: Albuterol Sulfate 90 MCG 8 GM INHALER 2 PUFF INHALE (09:13)
--- NOTE | 2021-07-28 12:56 | P.PNPSI_ITS ---
Subjective Subjective Date of Service: 07/28/21 Reason For Visit: Psychosis Subjective Notes: Conditional Voluntary Interim History: Pt reports less paranoia towards neighbors. She reports she can't see more dog teeth coming out. She reports poor sleep due to nightmares. She reports she wants to go back home soon. She denies SI/HI. She is taking medications as prescribed. Medication Compliance: Yes Review of Systems Review of Systems Patient noncompliant at this time Yes Unobtainable due to mental status Mental Status Exam Mental Status Exam Patient Appearance: Disheveled Patient Orientation: Person Level of Consciousness: Awake Patient Behavior: Guarded and Cooperative Mood Description: Elated Affect Description: Labile Patient Cognition Impaired: Yes Ability to Follow Directions: Fair Speech Pattern: Clear Diagnostics Vital Signs (24Hr): Vital Signs - 24 hr 07/27/21 18:40 07/28/21 08:00 Temperature 97 F 97.9 F Pulse Rate 77 70 Respiratory Rate 18 12 Blood Pressure 100/58 L 142/79 H Pulse Oximetry 97 100 BMI result Body Mass Index 32.1 Labs Results: 07/17/21 20:10 07/19/21 07:54 Imaging Radiology Impressions: ITS Impressions Chest CT 07/25/21 21:05 IMPRESSION: Mild emphysema. Patchy areas of groundglass attenuation in the right upper lobe questionable for pneumonitis. Small calcified and noncalcified pulmonary nodules, largest measuring 6 mm. According to the UPDATED 2017 Fleischner Society recommendations, the advised follow-up imaging for 6 mm nodule: Chest CT follow-up in one year. Coronary artery calcification. Fleischner guidelines were followed. Brain MRI 07/26/21 09:56 IMPRESSION: No acute intracranial process. Mild chronic white matter microangiopathy and moderate generalized parenchymal volume loss. Medications Medications Current Medications Al Hydroxide/Mg Hydroxide (Magnesium Hydrox/Alum Hydrox 30 Ml Oral.Susp) 30 ml PO Q6H PRN PRN Reason: Heartburn/Nausea Last Admin: 07/19/21 13:53 Dose: 30 ml Documented by: Albuterol Sulfate (Albuterol Sulfate 90 Mcg 8 Gm Inhaler) 2 puff INHALE Q4H PRN PRN Reason: Shortness Of Breath Last Admin: 07/28/21 09:13 Dose: 2 puff Documented by: Atenolol (Atenolol 100 Mg Tablet) 100 mg PO DAILY [facility]; Protocol Last Admin: 07/28/21 09:12 Dose: 100 mg Documented by: Carisoprodol (Carisoprodol 350 Mg Tablet) 350 mg PO TID PRN PRN Reason: Muscle Spasm Last Admin: 07/27/21 22:03 Dose: 350 mg Documented by: Docusate Sodium (Docusate Sodium 100 Mg Capsule) 100 mg PO BID [facility] Last Admin: 07/28/21 09:12 Dose: 100 mg Documented by: Duloxetine HCl (Duloxetine Hcl 60 Mg Capsule.) 60 mg PO DAILY [facility] Last Admin: 07/28/21 09:12 Dose: 60 mg Documented by: Haloperidol (Haloperidol 5 Mg Tablet) 5 mg PO TID [facility] Last Admin: 07/28/21 09:12 Dose: 5 mg Documented by: Hydroxyzine HCl (Hydroxyzine Hcl 25 Mg Tablet) 25 mg PO BEDTIME PRN PRN Reason: Anxiety Last Admin: 07/28/21 00:58 Dose: 25 mg Documented by: Ibuprofen (Ibuprofen 600 Mg Tablet) 600 mg PO Q6H PRN PRN Reason: Pain, Moderate (Pain Scale 4-6 Last Admin: 07/26/21 21:28 Dose: 600 mg Documented by: Nicotine Polacrilex (Nicotine Polacrilex Lozenge 4 Mg Lozenge) 4 mg BUCCAL Q4H PRN PRN Reason: nicotine cravings Last Admin: 07/28/21 09:17 Dose: 4 mg Documented by: Nystatin (Nystatin Cream 15 Gm Tube) 1 appl TOPICAL BID [facility]; Protocol Last Admin: 07/28/21 09:18 Dose: Not Given Documented by: Olanzapine (Olanzapine 10 Mg Tablet) 10 mg PO Q6H PRN PRN Reason: agitation Omeprazole (Omeprazole 20 Mg Capsule.) 20 mg PO DAILY@0630 [facility] Last Admin: 07/28/21 05:59 Dose: 20 mg Documented by: Polyethylene Glycol (Polyethylene Glycol 3350 17 Gm Powd.Pack) 17 gm PO DAILY PRN PRN Reason: Constipation Last Admin: 07/24/21 05:35 Dose: 17 gm Documented by: Trazodone HCl (Trazodone Hcl 100 Mg Tablet) 100 mg PO BEDTIME PRN PRN Reason: Insomnia Last Admin: 07/27/21 21:00 Dose: 100 mg Documented by: Allergies Allergies Allergy/AdvReac Type Severity Reaction Status Date / Time atorvastatin Allergy Intermediate Vomiting Verified 07/17/21 21:21 verapamil Allergy Intermediate Nausea Verified 07/17/21 21:20 zolpidem Allergy Intermediate Rash Verified 07/17/21 21:24 gabapentin Allergy Mild Nausea Verified 07/17/21 21:26 Iodinated Contrast Media Allergy Mild Constipatio Verified 07/17/21 21:27 [Contrast Dye] n niacin Allergy Mild Flushing Verified 07/17/21 21:23 oxybutynin Allergy Mild Dry Mucus Verified 07/17/21 21:26 Membranes Penicillins Allergy Mild Rash Verified 07/17/21 21:24 acetaminophen [From Percocet] Allergy Itching Verified 07/17/21 19:10 amoxicillin [From Augmentin] Allergy Rash Verified 07/17/21 21:19 aspirin [From Percodan] Allergy Chills Verified 07/17/21 21:20 cephalexin Allergy Rash Verified 07/17/21 21:22 clavulanic acid Allergy Rash Verified 07/17/21 21:19 [From Augmentin] codeine Allergy Itching Verified 07/17/21 19:11 oxycodone [From Percocet] Allergy Itching Verified 07/17/21 19:10 Telfa pad Allergy Mild Rash Uncoded 07/17/21 21:29 Assessment & Plan Assessment & Plan (1) Delusional disorder: Status: Acute Code(s): F22 - Delusional disorders Plan The patient is a middle-aged female, single, with no children, with poor social support besides a friend, referred from crisis for psychotic symptoms elicited by bizarre delusions, self-harming behavior and inability to take care of herself with very poor hygiene due to her delusive thinking. Collateral information gathered from her OP psychiatrist Dr. Luke Wilkins ([phone]) reports pt with paranoid statement for several years. No inpt admission. No recent antipsychotic rx. He has not seen her seen 2020. After pt has declined to be seen due to paranoia. Dr. Gardner does report that pt this sev erity of delusional content is new but some underlying present for years. Plan 1. Gather collateral information. 2. Continue medications as per med reconciliation form, continue Cymbalta 90 mg daily trazodone 100 mg p.o. q.h.s. and other medications. 3. Increase Haldol up to 2 mg po tid. 07/21 continue current medications. 07/22 increase haldol to 5mg po tid, decrease cymbalta to 60mg po daily. 07/23/ continue current medications. 07/24 continue current medications. [facility] due to hx of agitation, verbal threats, [facility] reporting that [facility] several with paranoid delusions. 07/26 continue haldol. 07/27 continue haldol, may consider depakote I spent minutes with the patient and/or on the patient floor today, greater than?50% of which was spent counseling/coordinating care. Reason for contiued inpatient stay Substantial Risk for: inability to function
[2021-07-28] MEDS: OLANZapine 10 MG TABLET PO (18:15)
[2021-07-28] MEDS: Divalproex Sodium 500 MG TABLET.DR PO (19:24)
[2021-07-28] MEDS: traZODone HCL 100 MG TABLET PO (21:00)
[2021-07-28] MEDS: carisoprodoL 350 MG TABLET PO (21:01)
[2021-07-28] MEDS: diazePAM 5 MG TABLET PO (21:01)
[2021-07-29] MEDS: Omeprazole 20 MG CAPSULE.DR PO ×2 (05:55→05:56)
[2021-07-29] MEDS: Albuterol Sulfate 90 MCG 8 GM INHALER 2 PUFF INHALE (07:50)
[2021-07-29 07:55] VITALS: BP 155/77; PULSE 84; RESP 18; TEMP 36.8; O2SAT 97
[2021-07-29] MEDS: diazePAM 5 MG TABLET PO ×3 (08:50→21:37)
[2021-07-29] MEDS: atenoloL 100 MG TABLET PO (08:50)
[2021-07-29] MEDS: HaloperidoL 5 MG TABLET PO ×3 (08:50→21:37)
[2021-07-29] MEDS: Ibuprofen 600 MG TABLET PO (08:50)
[2021-07-29] MEDS: DULoxetine HCl 60 MG CAPSULE.DR PO (08:50)
[2021-07-29] MEDS: Docusate Sodium 100 MG CAPSULE PO ×2 (08:50→21:36)
[2021-07-29] MEDS: Divalproex Sodium 500 MG TABLET.DR PO ×2 (08:51→21:37)
[2021-07-29] MEDS: Nicotine Polacrilex Lozenge 4 MG LOZENGE BUCCAL ×2 (09:17→14:31)
--- NOTE | 2021-07-29 19:16 | P.PNPSI_ITS ---
Subjective Subjective Date of Service: 07/29/21 Reason For Visit: Psychosis Subjective Notes: Conditional Voluntary Interim History: Pt reports she is doing well. she does not express paranoia towards neighbors. She reports she can't see more dog teeth coming out. She perseverates on medicinal qualities of vinegar fro curing COVID. She reports poor sleep due to n ightmares. She reports she wants to go back home soon. She denies SI/HI. She is taking medications as prescribed. Medication Compliance: Yes Side effects from medications: No Attending Groups: Yes Review of Systems Acute medical concerns: No Medical Review of Systems: unchanged Review of Systems Review of Systems Patient noncompliant at this time Yes Unobtainable due to mental status Mental Status Exam Mental Status Exam Patient Appearance: Appropriate Patient Orientation: Person Level of Consciousness: Awake Patient Behavior: Guarded and Cooperative Mood Description: Elated Affect Description: Labile Patient Cognition Impaired: Yes Ability to Follow Directions: Fair Speech Pattern: Clear and Perseverating Thought Process: Goal Oriented Thought Content: positive for Preoccupation (on vinegar curing covid, urging me to buy stock in white vinegar) Judgement: Fair Diagnostics Vital Signs (24Hr): Vital Signs - 24 hr 07/29/21 07:55 Temperature 98.2 F Pulse Rate 84 Respiratory Rate 18 Blood Pressure 155/77 H Pulse Oximetry 97 BMI result Body Mass Index 32.1 Labs Results: 07/17/21 20:10 07/19/21 07:54 Imaging Radiology Impressions: ITS Impressions Chest CT 07/25/21 21:05 IMPRESSION: Mild emphysema. Patchy areas of groundglass attenuation in the right upper lobe questionable for pneumonitis. Small calcified and noncalcified pulmonary nodules, largest measuring 6 mm. According to the UPDATED 2017 Fleischner Society recommendations, the advised follow-up imaging for 6 mm nodule: Chest CT follow-up in one year. Coronary artery calcification. Fleischner guidelines were followed. Brain MRI 07/26/21 09:56 IMPRESSION: No acute intracranial process. Mild chronic white matter microangiopathy and moderate generalized parenchymal volume loss. Medications Medications Current Medications Al Hydroxide/Mg Hydroxide (Magnesium Hydrox/Alum Hydrox 30 Ml Oral.Susp) 30 ml PO Q6H PRN PRN Reason: Heartburn/Nausea Last Admin: 07/19/21 13:53 Dose: 30 ml Documented by: Albuterol Sulfate (Albuterol Sulfate 90 Mcg 8 Gm Inhaler) 2 puff INHALE Q4H PRN PRN Reason: Shortness Of Breath Last Admin: 07/29/21 07:50 Dose: 2 puff Documented by: Atenolol (Atenolol 100 Mg Tablet) 100 mg PO DAILY [facility]; Protocol Last Admin: 07/29/21 08:50 Dose: 100 mg Documented by: Carisoprodol (Carisoprodol 350 Mg Tablet) 350 mg PO TID PRN PRN Reason: Muscle Spasm Last Admin: 07/28/21 21:01 Dose: 350 mg Documented by: Diazepam (Diazepam 5 Mg Tablet) 5 mg PO TID [facility] Last Admin: 07/29/21 14:31 Dose: 5 mg Documented by: Divalproex Sodium (Divalproex Sodium 500 Mg Tablet.) 500 mg PO BID [facility] Last Admin: 07/29/21 08:51 Dose: 500 mg Documented by: Docusate Sodium (Docusate Sodium 100 Mg Capsule) 100 mg PO BID [facility] Last Admin: 07/29/21 08:50 Dose: 100 mg Documented by: Duloxetine HCl (Duloxetine Hcl 60 Mg Capsule.) 60 mg PO DAILY [facility] Last Admin: 07/29/21 08:50 Dose: 60 mg Documented by: Haloperidol (Haloperidol 5 Mg Tablet) 5 mg PO TID [facility] Last Admin: 07/29/21 14:31 Dose: 5 mg Documented by: Hydroxyzine HCl (Hydroxyzine Hcl 25 Mg Tablet) 25 mg PO BEDTIME PRN PRN Reason: Anxiety Last Admin: 07/28/21 00:58 Dose: 25 mg Documented by: Ibuprofen (Ibuprofen 600 Mg Tablet) 600 mg PO Q6H PRN PRN Reason: Pain, Moderate (Pain Scale 4-6 Last Admin: 07/29/21 08:50 Dose: 600 mg Documented by: Nicotine Polacrilex (Nicotine Polacrilex Lozenge 4 Mg Lozenge) 4 mg BUCCAL Q4H PRN PRN Reason: nicotine cravings Last Admin: 07/29/21 14:31 Dose: 4 mg Documented by: Nystatin (Nystatin Cream 15 Gm Tube) 1 appl TOPICAL BID [facility]; Protocol Last Admin: 07/29/21 09:05 Dose: Not Given Documented by: Olanzapine (Olanzapine 10 Mg Tablet) 10 mg PO Q6H PRN PRN Reason: agitation Last Admin: 07/28/21 18:15 Dose: 10 mg Documented by: Omeprazole (Omeprazole 20 Mg Capsule.Dr) 20 mg PO DAILY@0630 [facility] Last Admin: 07/29/21 05:56 Dose: 20 mg Documented by: Polyethylene Glycol (Polyethylene Glycol 3350 17 Gm Powd.Pack) 17 gm PO DAILY PRN PRN Reason: Constipation Last Admin: 07/24/21 05:35 Dose: 17 gm Documented by: Trazodone HCl (Trazodone Hcl 100 Mg Tablet) 100 mg PO BEDTIME PRN PRN Reason: Insomnia Last Admin: 07/28/21 21:00 Dose: 100 mg Documented by: Allergies Allergies Allergy/AdvReac Type Severity Reaction Status Date / Time atorvastatin Allergy Intermediate Vomiting Verified 07/17/21 21:21 verapamil Allergy Intermediate Nausea Verified 07/17/21 21:20 zolpidem Allergy Intermediate Rash Verified 07/17/21 21:24 gabapentin Allergy Mild Nausea Verified 07/17/21 21:26 Iodinated Contrast Media Allergy Mild Constipatio Verified 07/17/21 21:27 [Contrast Dye] n niacin Allergy Mild Flushing Verified 07/17/21 21:23 oxybutynin Allergy Mild Dry Mucus Verified 07/17/21 21:26 Membranes Penicillins Allergy Mild Rash Verified 07/17/21 21:24 acetaminophen [From Percocet] Allergy Itching Verified 07/17/21 19:10 amoxicillin [From Augmentin] Allergy Rash Verified 07/17/21 21:19 aspirin [From Percodan] Allergy Chills Verified 07/17/21 21:20 cephalexin Allergy Rash Verified 07/17/21 21:22 clavulanic acid Allergy Rash Verified 07/17/21 21:19 [From Augmentin] codeine Allergy Itching Verified 07/17/21 19:11 oxycodone [From Percocet] Allergy Itching Verified 07/17/21 19:10 Telfa pad Allergy Mild Rash Uncoded 07/17/21 21:29 Assessment & Plan Assessment & Plan (1) Delusional disorder: Status: Acute Code(s): F22 - Delusional disorders Plan The patient is a middle-aged female, single, with no children, with poor social support besides a friend, referred from crisis for psychotic symptoms elicited by bizarre delusions, self-harming behavior and inability to t dandre care of herself with very poor hygiene due to her delusive thinking. Collateral information gathered from her OP psychiatrist Dr. Luke Wilkins ([phone]) reports pt with paranoid statement for several years. No inpt admission. No recent antipsychotic rx. He has not seen her seen 2020. After pt has declined to be seen due to paranoia. Dr. Gardner does report that pt this severity of delusional content is new but some underlying present for years. Plan 1. Gather collateral information. 2. Continue medications as per med reconciliation form, continue Cymbalta 90 mg daily trazodone 100 mg p.o. q.h.s. and other medications. 3. Increase Haldol up to 2 mg po tid. 07/21 continue current medications. 07/22 increase haldol to 5mg po tid, decrease cymbalta to 60mg po daily. 07/23/ continue current medications. 07/24 continue current medications. [facility] due to hx of agitation, verbal threats, [facility] reporting that [facility] several with paranoid delusions. 07/26 continue haldol. 07/27 continue haldol, may consider depakote 07/29/21 continue current treatment plan I spent minutes with the patient and/or on the patient floor today, greater than?50% of which was spent counseling/coordinating care. Reason for contiued inpatient stay Substantial Risk for: harm to self, inability to function and rapid decompensation
[2021-07-29] MEDS: traZODone HCL 100 MG TABLET PO (21:35)
[2021-07-29] MEDS: carisoprodoL 350 MG TABLET PO (21:35)
[2021-07-29] MEDS: hydrOXYzine HCL 25 MG TABLET PO (21:36)
[2021-07-29 22:18] VITALS: PULSE 80; TEMP 36.1; O2SAT 99
[2021-07-30] MEDS: Omeprazole 20 MG CAPSULE.DR PO (05:31)
[2021-07-30] MEDS: Nicotine Polacrilex Lozenge 4 MG LOZENGE BUCCAL ×3 (06:46→15:55)
[2021-07-30 07:20] VITALS: BP 168/89; PULSE 74; RESP 16; TEMP 36.6; O2SAT 100
[2021-07-30] MEDS: DULoxetine HCl 60 MG CAPSULE.DR PO (08:21)
[2021-07-30] MEDS: atenoloL 100 MG TABLET PO (08:21)
[2021-07-30] MEDS: Docusate Sodium 100 MG CAPSULE PO ×2 (08:21→20:52)
[2021-07-30] MEDS: diazePAM 5 MG TABLET PO ×3 (08:22→20:51)
[2021-07-30] MEDS: HaloperidoL 5 MG TABLET PO ×3 (08:22→20:52)
[2021-07-30] MEDS: Divalproex Sodium 500 MG TABLET.DR PO ×2 (08:22→20:52)
--- NOTE | 2021-07-30 14:32 | HO.PSYCHPN ---
Subjective Subjective Date of Service: 07/30/21 Reason For Visit: Psychosis Medical Problems Affecting Mental Status: No Interim History: pt pleasant upon approach, denies complaints; attending group, social with peers. no aggresion, no outbursts. denies SI or HI. Medication Compliance: Yes Attending Groups: Yes Review of Systems Acute medical concerns: No Medical Review of Systems: unchanged Review of Systems Review of Systems no changes Mental Status Exam Mental Status Exam Patient Appearance: Appropriate Patient Orientation: Person Level of Consciousness: Awake Patient Behavior: Guarded and Cooperative Mood Description: Calm Affect Description: Calm Patient Cognition Impaired: Yes Ability to Follow Directions: Fair Speech Pattern: Clear and Perseverating Judgement: Fair Diagnostics Vital Signs (24Hr): Vital Signs - 24 hr 07/29/21 22:18 07/30/21 07:20 Temperature 97 F 97.9 F Pulse Rate 80 74 Respiratory Rate 16 Blood Pressure 168/89 H Pulse Oximetry 99 100 BMI result Body Mass Index 32.1 Labs Results: 07/17/21 20:10 07/19/21 07:54 Imaging Radiology Impressions: ITS Impressions Chest CT 07/25/21 21:05 IMPRESSION: Mild emphysema. Patchy areas of groundglass attenuation in the right upper lobe questionable for pneumonitis. Small calcified and noncalcified pulmonary nodules, largest measuring 6 mm. According to the UPDATED 2017 Fleischner Society recommendations, the advised follow-up imaging for 6 mm nodule: Chest CT follow-up in one year. Coronary artery calcification. Fleischner guidelines were followed. Brain MRI 07/26/21 09:56 IMPRESSION: No acute intracranial process. Mild chronic white matter microangiopathy and moderate generalized parenchymal volume loss. Medications Medications Current Medications Al Hydroxide/Mg Hydroxide (Magnesium Hydrox/Alum Hydrox 30 Ml Oral.Susp) 30 ml PO Q6H PRN PRN Reason: Heartburn/Nausea Last Admin: 07/19/21 13:53 Dose: 30 ml Documented by: Albuterol Sulfate (Albuterol Sulfate 90 Mcg 8 Gm Inhaler) 2 puff INHALE Q4H PRN PRN Reason: Shortness Of Breath Last Admin: 07/29/21 07:50 Dose: 2 puff Documented by: Atenolol (Atenolol 100 Mg Tablet) 100 mg PO DAILY [facility]; Protocol Last Admin: 07/30/21 08:21 Dose: 100 mg Documented by: Carisoprodol (Carisoprodol 350 Mg Tablet) 350 mg PO TID PRN PRN Reason: Muscle Spasm Last Admin: 07/29/21 21:35 Dose: 350 mg Documented by: Diazepam (Diazepam 5 Mg Tablet) 5 mg PO TID [facility] Last Admin: 07/30/21 14:11 Dose: 5 mg Documented by: Divalproex Sodium (Divalproex Sodium 500 Mg Tablet.) 500 mg PO BID [facility] Last Admin: 07/30/21 08:22 Dose: 500 mg Documented by: Docusate Sodium (Docusate Sodium 100 Mg Capsule) 100 mg PO BID [facility] Last Admin: 07/30/21 08:21 Dose: 100 mg Documented by: Duloxetine HCl (Duloxetine Hcl 60 Mg Capsule.) 60 mg PO DAILY [facility] Last Admin: 07/30/21 08:21 Dose: 60 mg Documented by: Haloperidol (Haloperidol 5 Mg Tablet) 5 mg PO TID [facility] Last Admin: 07/30/21 14:11 Dose: 5 mg Documented by: Hydroxyzine HCl (Hydroxyzine Hcl 25 Mg Tablet) 25 mg PO BEDTIME PRN PRN Reason: Anxiety Last Admin: 07/29/21 21:36 Dose: 25 mg Documented by: Ibuprofen (Ibuprofen 600 Mg Tablet) 600 mg PO Q6H PRN PRN Reason: Pain, Moderate (Pain Scale 4-6 Last Admin: 07/29/21 08:50 Dose: 600 mg Documented by: Nicotine Polacrilex (Nicotine Polacrilex Lozenge 4 Mg Lozenge) 4 mg BUCCAL Q4H PRN PRN Reason: nicotine cravings Last Admin: 07/30/21 11:20 Dose: 4 mg Documented by: Nystatin (Nystatin Cream 15 Gm Tube) 1 appl TOPICAL BID [facility]; Protocol Last Admin: 07/30/21 08:23 Dose: Not Given Documented by: Olanzapine (Olanzapine 10 Mg Tablet) 10 mg PO Q6H PRN PRN Reason: agitation Last Admin: 07/28/21 18:15 Dose: 10 mg Documented by: Omeprazole (Omeprazole 20 Mg Capsule.) 20 mg PO DAILY@0630 [facility] Last Admin: 07/30/21 05:31 Dose: 20 mg Documented by: Polyethylene Glycol (Polyethylene Glycol 3350 17 Gm Powd.Pack) 17 gm PO DAILY PRN PRN Reason: Constipation Last Admin: 07/24/21 05:35 Dose: 17 gm Documented by: Trazodone HCl (Trazodone Hcl 100 Mg Tablet) 100 mg PO BEDTIME PRN PRN Reason: Insomnia Last Admin: 07/29/21 21:35 Dose: 100 mg Documented by: Allergies Allergies Allergy/AdvReac Type Severity Reaction Status Date / Time atorvastatin Allergy Intermediate Vomiting Verified 07/17/21 21:21 verapamil Allergy Intermediate Nausea Verified 07/17/21 21:20 zolpidem Allergy Intermediate Rash Verified 07/17/21 21:24 gabapentin Allergy Mild Nausea Verified 07/17/21 21:26 Iodinated Contrast Media Allergy Mild Constipatio Verified 07/17/21 21:27 [Contrast Dye] n niacin Allergy Mild Flushing Verified 07/17/21 21:23 oxybutynin Allergy Mild Dry Mucus Verified 07/17/21 21:26 Membranes Penicillins Allergy Mild Rash Verified 07/17/21 21:24 acetaminophen [From Percocet] Allergy Itching Verified 07/17/21 19:10 amoxicillin [From Augmentin] Allergy Rash Verified 07/17/21 21:19 aspirin [From Percodan] Allergy Chills Verified 07/17/21 21:20 cephalexin Allergy Rash Verified 07/17/21 21:22 clavulanic acid Allergy Rash Verified 07/17/21 21:19 [From Augmentin] codeine Allergy Itching Verified 07/17/21 19:11 oxycodone [From Percocet] Allergy Itching Verified 07/17/21 19:10 Telfa pad Allergy Mild Rash Uncoded 07/17/21 21:29 Assessment & Plan Assessment & Plan (1) Delusional disorder: Status: Acute Code(s): F22 - Delusional disorders Plan The patient is a middle-aged female, single, with no children, with poor social support besides a friend, referred from crisis for psychotic symptoms elicited by bizarre delusions, self-harming behavior and inability to take care of herself with very poor hygiene due to her delusive thinking. Collateral information gathered from her OP psychiatrist Dr. Luke Wilkins ([phone]) reports pt with paranoid statement for several years. No inpt admission. No recent antipsychotic rx. He has not seen her seen 2020. After pt has declined to be seen due to paranoia. Dr. Gardner does report that pt this severity of delusional content is new but some underlying present for years. Plan 1. Gather collateral information. 2. Continue medications as per med reconciliation form, continue Cymbalta 90 mg daily trazodone 100 mg p.o. q.h.s. and other medications. 3. Increase Haldol up to 2 mg po tid. 07/21 continue current medications. 07/22 increase haldol to 5mg po tid, decrease cymbalta to 60mg po daily. 07/23/ continue current medications. 07/24 continue current medications. [facility] due to hx of agitation, verbal threats, [facility] reporting that [facility] several with paranoid delusions. 07/26 continue haldol. 07/27 continue haldol, may consider depakote 07/29/21 continue current treatment plan 07/30/21 no changes, continue treatemnt plan I spent _15 minutes with the patient and/or on the patient floor today, greater than?50% of which was spent counseling/coordinating care. Patient educated on: medication risk/benefits and therapeutic strategies Informed Consent: further education needed Reason for contiued inpatient stay Substantial Risk for: inability to function and rapid decompensation
[2021-07-30] MEDS: traZODone HCL 100 MG TABLET PO (22:42)
[2021-07-30] MEDS: carisoprodoL 350 MG TABLET PO (22:46)
[2021-07-31] MEDS: Nicotine Polacrilex Lozenge 4 MG LOZENGE BUCCAL ×2 (05:52→10:37)
--- NOTE | 2021-07-31 07:30 | P.DS_ITS ---
DS: Providers Provider Date of Service: 07/31/21 Date of admission: 07/18/21 16:17 Primary care physician: Unknown Physician DS: Diagnosis Discharge Diagnosis (1) Delusional disorder: Status: Acute DS: Medications Discharge Medications Home Medications: Home Medications Medication Instructions Recorded Confirmed albuterol sulfate 90 mcg/actuation 2 puff INHALATION Q4H PRN 07/17/21 07/17/21 aerosol inhaler atenolol 100 mg tablet 100 mg PO DAILY 07/17/21 07/17/21 carisoprodol 350 mg tablet 350 mg PO TID PRN 07/17/21 07/17/21 docusate sodium 100 mg PO BID 07/17/21 07/17/21 nystatin 100,000 unit/gram topical 1 appl TOPICAL BID 07/17/21 07/17/21 cream pantoprazole 40 mg tablet,delayed 40 mg PO DAILY 07/17/21 07/17/21 release polyethylene glycol 3350 17 gram 17 g PO DAILY PRN 07/17/21 07/17/21 oral powder packet Previous Rx's Medication Instructions Recorded diazepam 5 mg tablet 5 mg PO TID #90 tab 07/31/21 divalproex 500 mg tablet,delayed 500 mg PO BID #60 tab 07/31/21 release duloxetine 60 mg capsule,delayed 60 mg PO DAILY #30 cap 07/31/21 release haloperidol 5 mg tablet 5 mg PO TID #90 tab 07/31/21 nicotine (polacrilex) 4 mg buccal 4 mg BUCCAL Q4H PRN #30 ea 07/31/21 lozenge trazodone 100 mg tablet 100 mg PO BEDTIME PRN #30 tab 07/31/21 Mental Status Exam Mental Status Exam Narrative: Appearance: casually groomed, good hygiene, in NAD Behavior: cooperative Speech: clear, normal rate/rhythm/volume, spontaneous Psychomotor: no agitation or retardation noted TP: linear TC: no overt psychosis, some residual paranoia but much calmer, Mood: good Affect: congruent, non labile. VH/AH: none delusions: residual paranoid but much calmer. Insight/judgment: fair x 2. Memory/cog: alert, oriented x 3. not formally tested. Data Imaging Diagnostic Imaging Impressions Chest CT 07/25/21 21:05 IMPRESSION: Mild emphysema. Patchy areas of groundglass attenuation in the right upper lobe questionable for pneumonitis. Small calcified and noncalcified pulmonary nodules, largest measuring 6 mm. According to the UPDATED 2017 Fleischner Society recommendations, the advised follow-up imaging for 6 mm nodule: Chest CT follow-up in one year. Coronary artery calcification. Fleischner guidelines were followed. Brain MRI 07/26/21 09:56 IMPRESSION: No acute intracranial process. Mild chronic white matter microangiopathy and moderate generalized parenchymal volume loss. 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 Apparently in the last weeks the patient had made more than 100 phone calls to the police department and crisis [facility] was called.? At her home, the crisis team and the police officers found the patient covered in blood since she stated that dog baby teeth are coming out of her face and she has to pull it out.? She also reported that she feeds herself only on ice cream cartons, and she does not take showers or baths and she uses vinegar are over her clothes and body.? She made several delusional statements and it was clear that the patient was unable to take care of herself due to her psychosis.? It was noted to, that the patient has a medical marijuana card and she has being using an undisclosed number of cannabis gummies.? Also, her friend Iglesia, reported that her lifetime partner moved away a few weeks ago and most likely that precipitated the symptoms of the patient. On interview, the patient was delusional, stating that the baby teeth of her dog are going from her skin, she was delusional and disorganized, requesting that she should have her dog here since the dog is a therapeutic dog.? She also was talkative regarding training dogs and carrying knives to protect herself. Past Psychiatric History: She was being assessed on 2019 at be a chain crisis for suicidality but [facility] Medical Evaluation Reviewed: Hospitalist Avel Pending HOSPITAL COURSE Ms. Paredes was admitted on a CV and placed on 15 minutes checks for safety. After discussing risks, benefits and alternative treatment options, she agreed to start haldol for paranoid delusions, delusions related to baby dog teeth coming out of her skin. Pt initially presented as irritable, wanting to leave and insisting that teeth were coming out of her skin, although she reports she does not see them but knew they were inside skin. She also agreed to start depakote for irritability and explosive behaviors. Her affect gradually presented as less irritable, less paranoid. She was sleeping through the night. She denied SI/HI. She was less paranoid towards neighbors and providers at [facility]. She was visible in the unit, attended assigned groups and appropriate with peers. Although she did not question if dog teeth were inside of her, she did not think it was still happening. Collateral information gathered from his OP psychiatrist from [facility], who reports pt with long hx of paranoia, that has been increasing over the past 2-3 years. We had family meeting with her brother who reported pt appeared much improved and denied safety concerns at times of discharge. Status at Discharge Cognitive/behavioral status at discharge: Pt with brighter, non labile, much less irritable. Less paranoia, less ideas of teeth coming out of her skin. She denied SI/HI. She did not show signs of aggression towards self or others. Functional status at discharge: independent ambulation Overall status at discharge: patient is progressing back to baseline Time Spent with Patient Time attestation: Total time spent providing and/or coordinating discharge services: Time spent: Greater than 30 minutes Discharge Plan Discharge Patient Disposition: Home, Self-Care Discharge Diagnosis: delusional disorder Referrals: Dr. Luke Wilkins (psychiatrists @ [facility]) [Other] - 08/08/21 3:00 pm (Appointment scheduled for Sunday, August 08, 2021 @ 3 PM via TELEHEALTH) PCP team @ [facility] [Other] - 1 Week (The nurse [facility] the [facility] for an appointment but the retail customer service representative told the nurse the project scheduler is working on it and they going to call the patient to schedule it.) Dr. Yanira Best (psychologists) [Other] - 08/15/21 1:00 pm (Appointment scheduled for Tuesday, August 15 @ 1 PM via TELEHEALTH. Second appointment scheduled for Sunday, August 22, 2021 @ 1 PM TELEHEALTH.) Discharge Medications: New haloperidol 5 mg Tablet 5 mg PO TID Qty: 90 0RF divalproex 500 mg Tablet,Delayed Release (Dr/Ec) 500 mg PO BID Qty: 60 0RF trazodone 100 mg Tablet 100 mg PO BEDTIME PRN (Reason: Insomnia) Qty: 30 0RF diazepam 5 mg Tablet 5 mg PO TID Qty: 90 0RF nicotine (polacrilex) 4 mg Lozenge 4 mg buccal Q4H PRN (Reason: nicotine cravings) Qty: 30 0RF duloxetine 60 mg Capsule,Delayed Release(Dr/Ec) 60 mg PO DAILY Qty: 30 0RF Continued carisoprodol 350 mg Tablet 350 mg PO TID PRN (Reason: Muscle Spasm) 0RF atenolol 100 mg Tablet 100 mg PO DAILY 0RF pantoprazole 40 mg Tablet,Delayed Release (Dr/Ec) 40 mg PO DAILY 0RF docusate sodium 100 mg PO BID 0RF nystatin 100,000 unit/gram Cream 1 appl TOPICAL BID 0RF albuterol sulfate 90 mcg/actuation Hfa Aerosol Inhaler 2 puff INHALATION Q4H PRN (Reason: Shortness Of Breath) 0RF polyethylene glycol 3350 17 gram Powder In Packet 17 g PO DAILY PRN (Reason: Constipation) 0RF Discontinued diazepam 10 mg Tablet 10 mg PO QID PRN (Reason: Anxiety) 0RF trazodone 100 mg Tablet 100 mg PO BEDTIME PRN (Reason: Insomnia) 0RF duloxetine 30 mg Capsule,Delayed Release(Dr/Ec) 90 mg PO DAILY 0RF Discharge Orders: Discharge Order (Routine); Ordered 07/31/21 Ordered By: Edyta Black Diet: regular diet Activity on Discharge: As tolerated Stand Alone Forms: Patient Portal Discharge page, Community Support Care Plan Goals: 1. Maintain mood 2. No SI/HI 3. Less delusions 4. No aggression towards self or others Health Concerns: Follow up with PCP Plan of Treatment: 1. take medications as prescribed 2. go to nearest ED or call 911 in event of emergency Assessment: Pt is less irritable, less delusions. No SI/HI. No signs of aggression towards self or others. Discharge Date/Time: 07/31/21 13:10
[2021-07-31] MEDS: Omeprazole 20 MG CAPSULE.DR PO (07:43)
[2021-07-31 08:00] VITALS: BP 102/74; PULSE 66; RESP 16; TEMP 36.1; O2SAT 98
[2021-07-31] MEDS: atenoloL 100 MG TABLET PO (08:29)
[2021-07-31] MEDS: Divalproex Sodium 500 MG TABLET.DR PO (08:29)
[2021-07-31] MEDS: Docusate Sodium 100 MG CAPSULE PO (08:29)
[2021-07-31] MEDS: diazePAM 5 MG TABLET PO (08:29)
[2021-07-31] MEDS: DULoxetine HCl 60 MG CAPSULE.DR PO (08:30)
[2021-07-31] MEDS: HaloperidoL 5 MG TABLET PO (08:30)
--- NOTE | 2021-07-31 13:39 | PC.NURSE ---
Patient was ready and aware of discharge. Paper work reviewed with patient . Follow up appointment and next dose medications explained to patient. Patient verbalized understanding. Patient was pleasant and cooperative with the discharge process. Patient was accompanied with belongings to the front of the buildings per Hospital policy.
== END 2021-07-31 13:10 | disposition home or self-care (01) | DRG 897 ==
LOC: HO.ED 07-18 14:09 → HO.PGERI 07-18 16:28
PROVIDERS: Nurse Practitioner Family; Admitting Provider Psychiatry & Neurology Psychiatry; Emergency Provider Internal Medicine; Visit Provider Psychiatry & Neurology Psychiatry
DX: F12.950 Cannabis use, unspecified with psychotic disorder with delusions (principal); F43.10 Post-traumatic stress disorder, unspecified; Z60.8 Other problems related to social environment; Z20.822 Contact with and (suspected) exposure to COVID-19; Z87.891 Personal history of nicotine dependence; Z88.0 Allergy status to penicillin; Z88.5 Allergy status to narcotic agent; Z88.6 Allergy status to analgesic agent; Z79.899 Other long term (current) drug therapy
CPT/HCPCS: 36415; 70551; 71250; 80048; 80053; 80061; 80076; 80143; 80179; 80307; 81003; 82077; 83735; 84443; 85025; 87635; 90471; 90715; 93005; 99285; Q0163

== ENCOUNTER 2021-12-18 13:00 | Inpatient (IN) | payer OTHER, SELFPAY ==
[2021-12-18] VITALS (9 sets, daily range): BP systolic 142–166; BP diastolic 78–101; PULSE 59–80; RESP 16–25; TEMP 35.1–37.2; O2SAT 97–99; BMI 29.8
--- NOTE | ~2021-12-18 | CT_ITS ---
EXAMINATION: CT CERVICAL SPINE WITHOUT CONTRAST CLINICAL INFORMATION: Neck pain status post fall with head trauma. COMPARISON: None TECHNIQUE: Multiple axial images of the cervical spine were obtained without the administration of intravenous contrast. Coronal and sagittal reformatted images were obtained. This CT examination was performed using dose optimization techniques as appropriate, variously including the following: *Automated exposure control *Adjustment of mA and/or kV according to patient size (this includes techniques or standardized protocols for targeted exams where dose is matched to indication/reason for exam; i.e. extremities or head) *Use of iterative reconstruction technique DLP: 407.05 mGy-cm FINDINGS: There is normal cervical lordosis and spinal alignment. Mild to moderate multilevel marginal osteophyte formation is seen. Mild neural foraminal narrowing is seen at C3-4. Mild to moderate multilevel bilateral facet arthropathy is seen. The spinous processes are intact. The odontoid process is intact. The cervical soft tissues are unremarkable. There is no lymphadenopathy. The visualized thyroid gland shows no significant abnormality. The lung apices are clear. CT/CT cervical spine wo con IMPRESSION: Mild multilevel degenerative changes without acute abnormality.
--- NOTE | ~2021-12-18 | CT_ITS ---
EXAMINATION: CT HEAD WITHOUT CONTRAST CLINICAL INFORMATION: Head injury status post fall. COMPARISON: None TECHNIQUE: Contiguous axial imaging was performed from the skull base to vertex without intravenous administration of contrast. Coronal and sagittal reformatted images were obtained. This CT examination was performed using dose optimization techniques as appropriate, variously including the following: *Automated exposure control *Adjustment of mA and/or kV according to patient size (this includes techniques or standardized protocols for targeted exams where dose is matched to indication/reason for exam; i.e. extremities or head) *Use of iterative reconstruction technique DLP: 1079 mGy-cm FINDINGS: There is mild widening of the cortical sulci and associated ventriculomegaly. The lateral ventricles are symmetrical. The third and fourth ventricles are in their normal midline position. The basilar and prepontine cisterns are unremarkable. There is no acute intra or extracerebral abnormality. There is no mass effect or midline shift. No contrast enhancing abnormalities are identified. Soft tissue swelling overlies the lateral right periorbital region. No acute underlying osseous abnormality. The right orbital contents and right bony orbit appear intact. Sections through the bony calvarium are unremarkable. The paranasal sinuses show partial visualization of a small right maxillary air-fluid level. The mastoid air cells are clear. CT/CT head/brain wo con IMPRESSION: 1. No acute intracranial pathology. 2. Moderate right lateral periorbital soft tissue swelling without definitive acute underlying osseous abnormality.
--- NOTE | ~2021-12-18 | XR_ITS ---
EXAMINATION: XR CHEST CLINICAL INFORMATION: Sepsis and hypothermia COMPARISON: Previous chest CT July 2021 TECHNIQUE: Frontal view of the chest was obtained. FINDINGS: The patient is rotated to the left. There is a right jugular line with tip projecting over the SVC. The cardiac and mediastinal contours are normal. The lungs are clear. There is no pleural effusion. There is a thin line at the right lung apex probably representing markings from the right posterior medial fourth rib. Follow-up end expiration chest x-ray recommended to exclude pneumothorax. There is no pleural effusion. There are degenerative changes of the spine. XR/XR chest 1V IMPRESSION: Right jugular line projects over SVC. Thin line at the right lung apex question related to the right posterior medial fourth rib. Follow-up end expiration chest x-ray to exclude pneumothorax recommended. Findings will be communicated by the [place] [facility] work flow drill operator pneumatic.
--- NOTE | ~2021-12-18 | XR_ITS ---
EXAMINATION: XR CHEST CLINICAL INFORMATION: Question pneumothorax. COMPARISON: Prior chest radiograph dated 12/18/2021. TECHNIQUE: Frontal and lateral views of the chest were obtained. FINDINGS: The heart, great vessels, pulmonary vasculature and mediastinum are normal. The lungs show no focal infiltrate, effusion or pneumothorax. There is no acute osseous abnormality. A right internal jugular central line is unchanged position. XR/XR chest 1V IMPRESSION: No active cardiopulmonary disease. No pneumothorax is seen.
--- NOTE | 2021-12-18 13:05 | ED_ITS ---
HPI - Weakness General Chief complaint: Fall Stated complaint: LEGS WEAK,ON FLOOR SINCE FALL ON SAT,FACE BRUISES Time Seen by Provider: 12/18/21 13:05 Source: patient and EMS Mode of arrival: EMS Limitations: no limitations History of Present Illness HPI Narrative: found on the floor at home since Saturday, patient fell going from bed to commode. She fell and landed on her right side. patient hit the right side of head and face MD Complaint: generalized weakness Onset (ago): year(s) Duration: constant Location: generalized Severity: severe Related Data Home Medications Medication Instructions Recorded Confirmed albuterol sulfate 90 mcg/actuation 2 puff inhalation Q4H PRN 07/17/21 12/18/21 aerosol inhaler Shortness Of Breath atenolol 100 mg tablet 100 mg PO DAILY 07/17/21 12/18/21 carisoprodol 350 mg tablet 350 mg PO TID PRN Muscle Spasm 07/17/21 12/18/21 docusate sodium 100 mg PO BID 07/17/21 12/18/21 pantoprazole 40 mg tablet,delayed 40 mg PO DAILY 07/17/21 12/18/21 release diazepam 5 mg tablet 5 mg PO TID PRN Anxiety 12/18/21 12/18/21 duloxetine 30 mg capsule,delayed 30 mg PO DAILY 12/18/21 12/18/21 release haloperidol 2 mg tablet 2 mg PO BEDTIME 12/18/21 12/18/21 haloperidol 2 mg tablet 2 mg PO BID 12/18/21 12/18/21 tolterodine 4 mg capsule,extended 4 mg PO DAILY 12/18/21 12/18/21 release 24 hr trazodone 100 mg tablet 200 mg PO BEDTIME 12/18/21 12/18/21 nicotine (polacrilex) 2 mg buccal 2 mg buccal Q2H PRN Nicotine 12/19/21 12/19/21 lozenge Cravings Previous Rx's Medication Instructions Recorded duloxetine 60 mg capsule,delayed 60 mg PO DAILY #30 caps 07/31/21 release Allergies Allergy/AdvReac Type Severity Reaction Status Date / Time zolpidem Allergy Intermediate Rash Verified 07/17/21 21:24 Penicillins Allergy Mild Rash Verified 07/17/21 21:24 acetaminophen [From Percocet] Allergy Itching Verified 07/17/21 19:10 amoxicillin [From Augmentin] Allergy Rash Verified 07/17/21 21:19 cephalexin Allergy Rash Verified 07/17/21 21:22 clavulanic acid Allergy Rash Verified 07/17/21 21:19 [From Augmentin] codeine Allergy Itching Verified 07/17/21 19:11 oxycodone [From Percocet] Allergy Itching Verified 07/17/21 19:10 atorvastatin AdvReac Intermediate Vomiting Verified 12/19/21 09:44 verapamil AdvReac Intermediate Nausea Verified 12/19/21 09:44 gabapentin AdvReac Mild Nausea Verified 12/19/21 09:44 Iodinated Contrast Media AdvReac Mild Constipatio Verified 12/19/21 09:44 [Contrast Dye] n niacin AdvReac Mild Flushing Verified 12/19/21 09:45 oxybutynin AdvReac Mild Dry Mucus Verified 12/19/21 09:44 Membranes aspirin [From Percodan] AdvReac Chills Verified 12/19/21 09:45 Telfa pad Allergy Mild Rash Uncoded 07/17/21 21:29 Review of Systems Constitutional: Constitutional: Reports no additional constitutional complaints Eyes: Eyes: Reports no additional eye complaints ENT: Denies dizziness Cardiovascular: Cardiovascular: Reports no additional cardiovascular complaints Respiratory: Respiratory: Reports as per HPI Gastrointestinal: Gastrointestinal: Reports no additional gastrointestinal complaints Genitourinary: Genitourinary: Reports no additional female genitourinary complaints Musculoskeletal: Musculoskeletal: Reports no additional musculoskeletal complaints Integumentary/Breasts: Skin/Breast: Denies rash Neurologic: Reports system reviewed and no additional complaints, except as documented, Denies dizziness and Denies Sensory deficit (Neuro) Psychiatric: Psychiatric: Denies anxiety PMFSH Past Medical History Medical History (Updated 01/04/22 @ 00:03 by Yolanda Del Real) Leg weakness, bilateral Social History Social History Household Members: None Housing: House Do you presently have visiting nurse or other home services: Yes (3xweek) Alcohol intake: never Patient Tobacco Use Status: Former Tobacco user Tobacco use type: Cigarette Years Smoked: 40 e-Cigarette/Vaping Use: Currently Using Second Hand Smoke Exposure: No Substance Use Type: Marijuana service: Yes Current occupational status: disabled Sexual orientation: Straight/Heterosexual Physical Exam Vital Signs: Vital Signs: Last Vital Signs Temp 97.4 F 12/27/21 14:59 Pulse 64 12/27/21 14:59 Resp 16 12/27/21 14:59 BP 141/72 H 12/27/21 14:59 Pulse Ox 96 12/27/21 14:59 O2 Del Method 12/27/21 14:59 BMI result Body Mass Index 29.8 Const: Other: patient looking older than stated age, frail, right facial edema Orientation/consciousness: oriented to person and patient oriented x3 Limitations: no limitations HEENT: Other: right periorbital edema Head: Yes normal to inspection Ears: external ears normal General nose exam: Normal external nose present Mouth: Normal oral and palatal mucosa present and oropharynx normal Throat: Yes posterior oropharynx normal Eyes: Other: right periorbital edema Neck: Other: supple Neck: Yes normal visual inspection Chest: Chest palpation & inspection: normal inspection of the chest Resp: Auscultation: clear to auscultation bilaterally Cardio: Jugular venous distension: no JVD Rate: regular rate Rhythm: regular rhythm Heart sounds: S1 normal heart sound present and S2 normal heart sound present GI: Inspection: Yes normal to inspection Palpation (GI): Soft to palpation, nontender and No hepatosplenomegaly present Auscultation: normal bowel sounds : General: Yes no CVA tenderness Back/Spine/Pelvis: Back: no CVA tenderness Skin: Other: pressure sores to knee, feet, arm and large ulcer to face Neuro: Other: strength in both legs is 3/5, arms 4/5 General: oriented to person and patient oriented x3 Cranial nerves: Yes CN's II-XII intact bilaterally Sensory Exam: No Sensory deficit (Neuro) Extrem: General: Yes normal to inspection Psych: Appearance: grossly normal Course Reevaluation(s) Reevaluation #1: patient with hypothermia, rhabdomyolisis, renal failure, decubedi, now with central line, terry. In renal failure not making urine. Time: 16:28 MDM - Weakness Lab Data Result diagrams: 12/26/21 11:13 12/27/21 05:25 Labs: Lab Results 12/18/21 12/18/21 12/18/21 Range/Units 15:09 15:09 15:09 WBC 19.6 H (4.8-10.8) X10*3/uL RBC 4.40 D (4.20-5.50) X10*6/uL Hgb 13.8 D (12.0-16.0) g/dl Hct 41.4 D (37.0-47.0) % MCV 94.1 (80.0-98.0) fL MCH 31.4 (27.0-33.0) pg MCHC 33.3 (31.0-35.0) g/dl RDW 13.5 (11.0-16.0) % Plt Count 238 (160-400) X10*3/uL MPV 8.9 L (9.4-12.3) fL Immature Gran % (Auto) 0.6 H (0.0-0.4) % Neut % (Auto) 84.0 H (45-73) % Lymph % (Auto) 9.4 L (20-40) % [place] % (Auto) 5.8 (2-11) % Eos % (Auto) 0.0 (0-4) % Baso % (Auto) 0.2 (0-2) % Lymph # (Auto) 1.8 (1.2-4.9) X10*3/uL [place] # (Auto) 1.1 (0.1-1.2) X10*3/uL Eos # (Auto) 0.0 (0.0-0.4) X10*3/uL Baso # (Auto) 0.0 (0.0-0.2) X10*3/uL Abs Immat Gran (auto) 0.12 H (0.00-0.03) X10*3/uL Absolute Neuts (auto) 16.4 H (2.0-8.3) x10*3/uL Absolute Nucleated RBC 0.000 (0.0-0.012) X10*3/uL Nucleated RBC % (auto) 0.0 (0.0-0.2) /100WBC Sodium 141 (135-145) mmol/L Potassium 4.5 (3.3-5.1) mmol/L Chloride 103 (96-108) mmol/L Carbon Dioxide 21 L (22-29) mmol/L Anion Gap 22 H (12-20) BUN 70 H D (9-16) mg/dL Creatinine 4.01 H* (0.5-1.4) mg/dL Estim Creat Clear Calc 16.1 Estimated GFR 11 Random Glucose 120 H (60-115) mg/dL Lactic Acid (0.5-2.0) mmol/L Calcium 10.3 H D (8.4-10.2) mg/dL Total Bilirubin 0.7 (0.0-1.0) mg/dL AST 224 H (5-31) U/L ALT 55 H (0-31) U/L Alkaline Phosphatase 62 D (39-117) U/L Total Creatine Kinase 3721 H (26-140) U/L Troponin I High Sens 153.9 H* (<3.5-17.0) ng/L Total Protein 7.6 (6.5-8.0) g/dL Albumin 4.2 (3.5-5.0) g/dL TSH (0.32-4.0) uIU/mL COVID-19 ([facility]) (Negative) COVID-19 Clin Com 12/18/21 12/18/21 12/18/21 Range/Units 15:09 15:09 16:51 WBC (4.8-10.8) X10*3/uL RBC (4.20-5.50) X10*6/uL Hgb (12.0-16.0) g/dl Hct (37.0-47.0) % MCV (80.0-98.0) fL MCH (27.0-33.0) pg MCHC (31.0-35.0) g/dl RDW (11.0-16.0) % Plt Count (160-400) X10*3/uL MPV (9.4-12.3) fL Immature Gran % (Auto) (0.0-0.4) % Neut % (Auto) (45-73) % Lymph % (Auto) (20-40) % [place] % (Auto) (2-11) % Eos % (Auto) (0-4) % Baso % (Auto) (0-2) % Lymph # (Auto) (1.2-4.9) X10*3/uL [place] # (Auto) (0.1-1.2) X10*3/uL Eos # (Auto) (0.0-0.4) X10*3/uL Baso # (Auto) (0.0-0.2) X10*3/uL Abs Immat Gran (auto) (0.00-0.03) X10*3/uL Absolute Neuts (auto) (2.0-8.3) x10*3/uL Absolute Nucleated RBC (0.0-0.012) X10*3/uL Nucleated RBC % (auto) (0.0-0.2) /100WBC Sodium (135-145) mmol/L Potassium (3.3-5.1) mmol/L Chloride (96-108) mmol/L Carbon Dioxide (22-29) mmol/L Anion Gap (12-20) BUN (9-16) mg/dL Creatinine (0.5-1.4) mg/dL Estim Creat Clear Calc Estimated GFR Random Glucose (60-115) mg/dL Lactic Acid 1.3 (0.5-2.0) mmol/L Calcium (8.4-10.2) mg/dL Total Bilirubin (0.0-1.0) mg/dL AST (5-31) U/L ALT (0-31) U/L Alkaline Phosphatase (39-117) U/L Total Creatine Kinase (26-140) U/L Troponin I High Sens (<3.5-17.0) ng/L Total Protein (6.5-8.0) g/dL Albumin (3.5-5.0) g/dL TSH 1.31 (0.32-4.0) uIU/mL COVID-19 ([facility]) Negative (Negative) COVID-19 Clin Com See Note Imaging Data CT Neck: Radiologist's impression: FINDINGS: There is normal cervical lordosis and spinal alignment. Mild to moderate multilevel marginal osteophyte formation is seen. Mild neural foraminal narrowing is seen at C3-4. Mild to moderate multilevel bilateral facet arthropathy is seen. The spinous processes are intact. The odontoid process is intact. The cervical soft tissues are unremarkable. There is no lymphadenopathy. The visualized thyroid gland shows no significant abnormality. The lung apices are clear. CT/CT cervical spine wo con IMPRESSION: Mild multilevel degenerative changes without acute abnormality.? ? ? CT scan - head: Radiologist's impression: FINDINGS: There is mild widening of the cortical sulci and associated ventriculomegaly. The lateral ventricles are symmetrical. The third and fourth ventricles are in their normal midline position. The basilar and prepontine cisterns are unremarkable. There is no acute intra or extracerebral abnormality. There is no mass effect or midline shift. No contrast enhancing abnormalities are identified. Soft tissue swelling overlies the lateral right periorbital region. No acute underlying osseous abnormality. The right orbital contents and right bony orbit appear intact. Sections through the bony calvarium are unremarkable. The paranasal sinuses show partial visualization of a small right maxillary air-fluid level.? The mastoid air cells are clear. CT/CT head/brain wo con IMPRESSION: 1. No acute intracranial pathology. 2. Moderate right lateral periorbital soft tissue swelling without definitive acute underlying osseous abnormality. ECG Data Attestation: I personally reviewed and interpreted this ECG as follows: Interpretation: sinus rate of 80, no st or twave changes Procedures Procedure Narrative Procedure Narrative: Proper hand hygiene, cap, gown and sterile gloves place worn. Patient prepped and draped in sterile fashion, 1% lidocaine used for anesthesia, sterile US cover used, central line placed using US. Central line 16cm at the neck. Sutured in place. CXR shows good placement Critical Care Time Critical Care Time Attestation: I spent 40 minutes of critical care, with interventions, assessments, speaking to patient, consultants, and family. Discharge Plan Discharge Clinical Impression: Hypothermia, Acute renal failure, Rhabdomyolysis, Decubitus ulcer Patient Disposition: Admitted As Inpatient Interventions: Admission Worksheet (ED) Last Done: 12/18/21 18:32 Discharge Date/Time: 12/18/21 18:33
--- NOTE | 2021-12-18 13:16 | ECG_ITS ---
Test Reason : FALL Blood Pressure : / mmHG Vent. Rate : 079 BPM Atrial Rate : 079 BPM P-R Int : 154 ms QRS Dur : 078 ms QT Int : 380 ms P-R-T Axes : -03 099 070 degrees QTc Int : 435 ms Normal sinus rhythm Rightward axis Nonspecific ST and T wave abnormality Abnormal ECG When compared with ECG of 18-JUL-2021 09:37, Vent. rate has increased BY 27 BPM Questionable change in QRS axis T wave inversion no longer evident in Inferior leads Referred By: George Palomares Electronically Signed By:
[2021-12-18] MEDS: 0.9 % Sodium Chloride 2,670 ML 2670 ML IV (15:13)
[2021-12-18 15:16] LABS: MANUAL DIFF FLAG NO
[2021-12-18 15:18] LABS: Basophils Percent Auto 0.2 % (0-2); Hematocrit 41.4 % (37.0-47.0); Hemoglobin 13.8 g/dl (12.0-16.0); Imm Gran Abs Auto 0.12 X10*3/uL (0.00-0.03); Imm Gran Pct Auto 0.6 % (0.0-0.4); Lymphocytes Absolute Auto 1.8 X10*3/uL (1.2-4.9); Lymphocytes Percent Auto 9.4 % (20-40); Mean Corpuscular HGB Conc 33.3 g/dl (31.0-35.0); Mean Corpuscular Hemoglobin 31.4 pg (27.0-33.0); Mean Corpuscular Volume 94.1 fL (80.0-98.0); Mean Platelet Volume 8.9 fL (9.4-12.3); Monocytes Absolute Auto 1.1 X10*3/uL (0.1-1.2); Monocytes Percent Auto 5.8 % (2-11); Neutrophils Absolute Auto 16.4 x10*3/uL (2.0-8.3); Platelet Count 238 X10*3/uL (160-400); Red Cell Distribution Width 13.5 % (11.0-16.0); White Blood Count 19.6 X10*3/uL (4.8-10.8)
[2021-12-18 15:28] LABS: Lactic Acid 1.3 mmol/L (0.5-2.0)
[2021-12-18 15:53] LABS: TSH reflex Free T4 1.31 uIU/mL (0.32-4.0)
[2021-12-18 15:58] LABS: Troponin-I High Sensitivity 153.9 ng/L (<3.5-17.0)
[2021-12-18 16:00] LABS: Alanine Aminotransferase 55 U/L (0-31); Albumin Level 4.2 g/dL (3.5-5.0); Alkaline Phosphatase 62 U/L (39-117); Anion Gap 22 (12-20); Aspartate Amino Transferase 224 U/L (5-31); Bilirubin Total 0.7 mg/dL (0.0-1.0); Blood Urea Nitrogen 70 mg/dL (9-16); Calcium 10.3 mg/dL (8.4-10.2); Carbon Dioxide 21 mmol/L (22-29); Chloride 103 mmol/L (96-108); Creatinine Clr Calc Pharmacy 16.1; Estimated Glomerular Filt Rate 11; Glucose Random 120 mg/dL (60-115); Potassium 4.5 mmol/L (3.3-5.1); Sodium 141 mmol/L (135-145); Total Protein 7.6 g/dL (6.5-8.0)
--- NOTE | 2021-12-18 16:45 | PC.NURSE ---
pt difficult stick for iv access following arrival to er. pt unable to obtain access w multiple peripheral iv sticks, provider aware. central line placed in r side by provider, all lumens patent. blood labs obtained and sent. pts face and wounds cleaned by this rn. collar cleared by provider. terry placed for accurate i&os and temp sense r/t pt hypothermia on arrival. ta hugger discontinued now that pt temp up to 98.0 core. pt is alert and oriented x4, has no further questions at this time regarding care plan. plan for icu admission.
[2021-12-18] MEDS: Piperacillin Sodium/Tazobactam 3.375 GM in 0.9 % Sodium Chloride 50 ML IV (16:49)
[2021-12-18] MEDS: 0.9 % Sodium Chloride 1,000 ML 999 ML IVCONT ×2 (16:50→17:44)
[2021-12-18 17:33] LABS: COVID-19 Test Negative (Negative)
[2021-12-18] MEDS: Heparin Sodium,Porcine 5,000 UNIT/ML VIAL 5000 UNIT SUBCUT (17:49)
--- NOTE | 2021-12-18 18:23 | PM.CCN ---
Critical Care Event Note Summary Date of Service: 12/18/21 Code activated: No Narrative: Asked to see Mrs. Paredes in the ED by Dr. Palomares. This is a 66 yo F who fell at home and couldn't get up. Was found after being on the floor for two days. Presents with acute renal failure 2? rhabdomyolysis, and hypothermia. BUN/creat 70/4.0 (baseline 0.7), CPK 3700. Normal lactic acid. Still no urine output after 4 liters crystalloid given in the ED. On my exam, she is fully awake and alert and appropriate. Mult facial bruises. HR, BP, RR OK, Sat 100% on room air. Temp 99.5? Bedside ECHO by me in the ED: Probably normal LV wall thickness, normal LV systolic fxn, EF 60+%. RV normal size and fxn. Normal valvular structure and dopplers. Unable to measure TV doppler. Aortic root looks dilated. IVC measured about 1.4cm with about 50% insp collapse. IMPRESSION: EDISON 2? rhabdo. May well wind up on HD. Might be fluid responsive. I'll recheck labs to see how much she's been diluted so far. Not septic. Plan: Admit ICU for further monitoring and mx. Time (includ mult d/w ED staff): 30 min. Critical Care Time (minutes): 0
[2021-12-18 18:55] LABS: MANUAL DIFF FLAG NO
[2021-12-18 19:06] LABS: Basophils Percent Auto 0.1 % (0-2); Eosinophils Percent Auto 0.1 % (0-4); Hematocrit 32.6 % (37.0-47.0); Hemoglobin 10.7 g/dl (12.0-16.0); Imm Gran Abs Auto 0.08 X10*3/uL (0.00-0.03); Imm Gran Pct Auto 0.5 % (0.0-0.4); Lymphocytes Absolute Auto 1.2 X10*3/uL (1.2-4.9); Lymphocytes Percent Auto 7.5 % (20-40); Mean Corpuscular HGB Conc 32.8 g/dl (31.0-35.0); Mean Corpuscular Hemoglobin 31.3 pg (27.0-33.0); Mean Corpuscular Volume 95.3 fL (80.0-98.0); Monocytes Absolute Auto 1.1 X10*3/uL (0.1-1.2); Monocytes Percent Auto 6.7 % (2-11); Neutrophils Absolute Auto 13.3 x10*3/uL (2.0-8.3); Neutrophils Percent Auto 85.1 % (45-73); Platelet Count 159 X10*3/uL (160-400); Red Blood Count 3.42 X10*6/uL (4.20-5.50); Red Cell Distribution Width 13.6 % (11.0-16.0); White Blood Count 15.7 X10*3/uL (4.8-10.8)
[2021-12-18 19:26] LABS: Anion Gap 16 (12-20); Blood Urea Nitrogen 59 mg/dL (9-16); Carbon Dioxide 19 mmol/L (22-29); Chloride 110 mmol/L (96-108); Creatinine Clr Calc Pharmacy 19.6; Estimated Glomerular Filt Rate 14; Glucose Random 117 mg/dL (60-115); Sodium 141 mmol/L (135-145)
--- NOTE | 2021-12-18 19:40 | PM.CCHP ---
History of Present Illness Date of Service: 12/18/21 Attending physician on admission: Ulises Conway Chief Complaint: acute renal failure Patient is a 66-year-old female with a past medical history of delusional disorder and emphysema who fell at home 2/2 chronic leg weakness. Pt states she had woke up to use the bathroom and fell 2/2 leg weakness, landing on her right side, She denies any chest pain or dizziness prior to falling. She states she was on the ground for 2 days before bring MARSHAL to the ED earlier today. In the ED, she was found to be hypothemic, anuric in acute kidney failure secondary to rhabdomyolysis. She also sustained multiple facial injuries including bruises on both cheeks, right sided stage 2 ulcer, an abrasion on her chin and periorbital edema on the right side. Patient tells me she lives alone with her dog, She has a [employer] [place] worker who comes to her house 3 times per week, someone else does her grocery shopping weekly. She states she is a of the [employer], 100% disabled due to her leg weakness. She could not describe what caused her disability but states she usually ambulates with a walker. She states she has had several falls in the past. According to chart history, she does not have family in the area but does have a good friend who helps her. She tells me her friend is taking care of her dog right now. Her labs were remarkable for WBC 19.6 with no suspicion of sepsis, likely hemoconcentrated; serum bicarb 21 with a gap of 22, BUN 70, creatinine 4.01 with no history of renal failure, calcium 10.3, AST 224, ALT 55, CK of 3721, troponin 153.9. Lactic acid normal, BC pending. VSS; concern as pt has not made any urine. In the ED, the pt was given 4L IVF, zosyn. Imaging as follows; CT/CT head/brain wo con IMPRESSION: 1. No acute intracranial pathology. 2. Moderate right lateral periorbital soft tissue swelling without definitive acute underlying osseous abnormality. CT/CT cervical spine wo con IMPRESSION: Mild multilevel degenerative changes without acute abnormality.? Patient was examined by Dr. Conway and has been admitted to the ICU for further monitoring. I examined the patient once she was brought to the ICU. Will order echo for tomorrow, continue pt's psych meds and omeprazole. Repeat labs seem to be improving, WBC now down to 15.7, hemoglobin seems to be at the patient's baseline of 10.7, hematocrit 32.6, again more in line with her baseline, Notably, BUN down to 59 and creatinine down to 3.28, CK down to 2763. Phosphorus 4.5, magnesium 1.9,, calcium 8.0. Will continue to monitor labs while rehydrating pt gently. Review of Systems Review of Systems: Yes all other systems are reviewed and are negative [facility] Social History Social History Household Members: None Housing: House Do you presently have visiting nurse or other home services: Yes (3xweek) Alcohol intake: never Patient Tobacco Use Status: Former Tobacco user Tobacco use type: Cigarette Years Smoked: 40 Smoked in Last 30 Days: Yes e-Cigarette/Vaping Use: Currently Using Patient Interested in Nicotine Replacement: No Second Hand Smoke Exposure: No Use of substances other than those prescribed or required for medical reasons: Yes Substance Use Type: Marijuana Substance Use Frequency: Occasionally Last Used Substance: Weeks (ago) Currently Displaying Signs/Symptoms of Drug Intoxication Withdrawal: No Have you been hit, kicked, punched, or otherwise hurt by someone within the past year? If so, by whom?: No Do you feel safe in your current relationship?: No Current Relationship Is there a partner from a previous relationship who is making you feel unsafe now?: No Are you made to feel afraid or neglected: No Spiritual Healthcare Practices: none [facility] Practices: none Cultural Healthcare Practices: none Advance Directives: No Advance Directives Information Provided: Yes Do you have thoughts of harming others: None Do you have a plan to hurt others: No Plan Recently lost weight without trying: No Nutrition Risks: Difficulty swallowing Patient : No : No Poor oral hygiene: No service: Yes Current occupational status: disabled Sexual orientation: Straight/Heterosexual Meds Allergies Allergy/AdvReac Type Severity Reaction Status Date / Time zolpidem Allergy Intermediate Rash Verified 07/17/21 21:24 Penicillins Allergy Mild Rash Verified 07/17/21 21:24 acetaminophen [From Percocet] Allergy Itching Verified 07/17/21 19:10 amoxicillin [From Augmentin] Allergy Rash Verified 07/17/21 21:19 cephalexin Allergy Rash Verified 07/17/21 21:22 clavulanic acid Allergy Rash Verified 07/17/21 21:19 [From Augmentin] codeine Allergy Itching Verified 07/17/21 19:11 oxycodone [From Percocet] Allergy Itching Verified 07/17/21 19:10 atorvastatin AdvReac Intermediate Vomiting Verified 12/19/21 09:44 verapamil AdvReac Intermediate Nausea Verified 12/19/21 09:44 gabapentin AdvReac Mild Nausea Verified 12/19/21 09:44 Iodinated Contrast Media AdvReac Mild Constipatio Verified 12/19/21 09:44 [Contrast Dye] n niacin AdvReac Mild Flushing Verified 12/19/21 09:45 oxybutynin AdvReac Mild Dry Mucus Verified 12/19/21 09:44 Membranes aspirin [From Percodan] AdvReac Chills Verified 12/19/21 09:45 Telfa pad Allergy Mild Rash Uncoded 07/17/21 21:29 Active Medications: Current Medications Duloxetine HCl (Duloxetine Hcl 60 Mg Capsule.) 60 mg PO DAILY [facility] Heparin Sodium (Porcine) (Heparin Sodium,Porcine 5,000 Unit/Ml Vial) 5,000 unit SUBCUT Q8H [facility] Last Admin: 12/18/21 17:49 Dose: 5,000 unit Omeprazole (Omeprazole 40 Mg Capsule.) 40 mg PO DAILY@0630 [facility] Pharmacy Consult (Consult Rx Perform Med Rec) 1 each MISCELLANE ONCE PRN PRN Reason: Consult order Home Medications Medication Instructions Recorded Confirmed Last Taken Type albuterol sulfate 90 mcg/actuation 2 puff inhalation Q4H PRN 07/17/21 12/18/21 12/16/21 History aerosol inhaler Shortness Of Breath atenolol 100 mg tablet 100 mg PO DAILY 07/17/21 12/18/21 12/16/21 History carisoprodol 350 mg tablet 350 mg PO TID PRN Muscle Spasm 07/17/21 12/18/21 12/16/21 History docusate sodium 100 mg PO BID 07/17/21 12/18/21 12/16/21 History pantoprazole 40 mg tablet,delayed 40 mg PO DAILY 07/17/21 12/18/2112/16/22 History release diazepam 5 mg tablet 5 mg PO TID PRN Anxiety 12/18/21 12/18/21 12/16/21 History duloxetine 30 mg capsule,delayed 30 mg PO DAILY 12/18/21 12/18/21 12/16/21 History release haloperidol 2 mg tablet 2 mg PO BEDTIME 12/18/21 12/18/21 12/16/21 History haloperidol 2 mg tablet 2 mg PO BID 12/18/21 12/18/21 12/16/21 History tolterodine 4 mg capsule,extended 4 mg PO DAILY 12/18/21 12/18/21 12/16/21 History release 24 hr trazodone 100 mg tablet 200 mg PO BEDTIME 12/18/21 12/18/21 12/16/21 History nicotine (polacrilex) 2 mg buccal 2 mg buccal Q2H PRN Nicotine 12/19/21 12/19/21 Unknown History lozenge Cravings Physical Exam Vital Signs: Vital Signs: Last Vital Signs Temp 99 F 12/18/21 16:37 Pulse 65 12/18/21 19:00 Resp 25 H 12/18/21 19:00 BP 160/79 H 12/18/21 19:00 Pulse Ox 99 12/18/21 19:00 O2 Del Method 12/18/21 19:00 BMI result Body Mass Index 29.8 Const: General: cooperative, comfortable, no acute distress, well developed and other (appears older than stated age) Orientation/consciousness: patient oriented x3 Limitations: no limitations HEENT: Head: Yes normal to inspection, Yes No palpable skull fracture present, Yes normocephalic, Yes atraumatic, No Leach's sign and No raccoon eyes Ears: external ears normal General nose exam: Normal external nose present Face and sinus: Yes abrasion (chin [id number] erythematous abrasion), Yes ecchymosis (right cheek [id number] ecchymosis; left cheek 3cm round ecchymosis), Yes edema (right sided cheek ) and Yes other (2cm round stage 2 ulcer on right cheek, at the center of the ecchymosis) Mouth: Normal oral and palatal mucosa present and lip normal Eyes: Periorbital: periorbital findings abnormal right periorbital swelling Pupils: Equal, round and reactive pupils present Neck: Other: right TLC in place, dressing CDI Neck: Yes normal visual inspection and Yes full ROM Chest: Chest palpation & inspection: normal inspection of the chest and normal palpation of entire chest wall Resp: Effort & Inspection: normal respiratory effort and able to speak in complete sentences (speaking slowly) Auscultation: clear to auscultation bilaterally Cardio: Rate: regular rate Rhythm: regular rhythm Heart sounds: normal S1 and S2 GI: Inspection: Yes normal to inspection Palpation (GI): Soft to palpation and nontender Skin: General skin exam: no rashes or lesions noted Neuro: General: patient oriented x3 Cranial nerves: Yes Equal, round and reactive pupils present Extrem: General: Yes normal to inspection and Yes no pedal edema Results Labs CBC and Chem 7: 12/19/21 05:21 12/19/21 05:21 Labs: Laboratory Results - last 24 hr 12/18/21 12/18/21 12/18/21 15:09 15:09 15:09 MCV 94.1 MCH 31.4 MCHC 33.3 RDW 13.5 Plt Count 238 MPV 8.9 L Immature Gran % (Auto) 0.6 H Neut % (Auto) 84.0 H Lymph % (Auto) 9.4 L Hemphill % (Auto) 5.8 Eos % (Auto) 0.0 Baso % (Auto) 0.2 Lymph # (Auto) 1.8 Hemphill # (Auto) 1.1 Eos # (Auto) 0.0 Baso # (Auto) 0.0 Abs Immat Gran (auto) 0.12 H Absolute Neuts (auto) 16.4 H Absolute Nucleated RBC 0.000 Nucleated RBC % (auto) 0.0 Anion Gap 22 H Estim Creat Clear Calc 16.1 Estimated GFR 11 Random Glucose 120 H Lactic Acid 1.3 Calcium 10.3 H D Total Bilirubin 0.7 AST 224 H ALT 55 H Alkaline Phosphatase 62 D Total Creatine Kinase 3721 H Total Protein 7.6 Albumin 4.2 TSH COVID-19 ([facility]) COVID-19 Clin Com 12/18/21 12/18/21 12/18/21 15:09 16:51 18:50 MCV MCH MCHC RDW Plt Count MPV Immature Gran % (Auto) Neut % (Auto) Lymph % (Auto) Hemphill % (Auto) Eos % (Auto) Baso % (Auto) Lymph # (Auto) Hemphill # (Auto) Eos # (Auto) Baso # (Auto) Abs Immat Gran (auto) Absolute Neuts (auto) Absolute Nucleated RBC Nucleated RBC % (auto) Anion Gap 16 Estim Creat Clear Calc 19.6 Estimated GFR 14 Random Glucose 117 H Lactic Acid Calcium 8.0 L D Total Bilirubin AST ALT Alkaline Phosphatase Total Creatine Kinase 2763 H Total Protein Albumin TSH 1.31 COVID-19 ([facility]) Negative COVID-19 Clin Com See Note Imaging Radiologist's Impressions: Impressions Cervical Spine CT 12/18/21 13:49 IMPRESSION: Mild multilevel degenerative changes without acute abnormality. Head CT 12/18/21 13:49 IMPRESSION: 1. No acute intracranial pathology. 2. Moderate right lateral periorbital soft tissue swelling without definitive acute underlying osseous abnormality. Chest X-Ray 12/18/21 14:59 IMPRESSION: Right jugular line projects over SVC. Thin line at the right lung apex question related to the right posterior medial fourth rib. Follow-up end expiration chest x-ray to exclude pneumothorax recommended. Findings will be communicated by the Painter work flow stock transfer clerk. Assessment and Plan (1) Hypothermia: Status: Acute monitor (2) Acute renal failure: Status: Acute monitor renal indices; pt making urine - 475cc's overnight, had to reinsert Perkins as it was leaking. (3) Rhabdomyolysis: Status: Acute IVF, monitor labs (4) Decubitus ulcer: Status: Acute (5) Delusional disorder: Status: Acute continue home meds pending swallow evaluation (6) Leg weakness, bilateral: Status: Acute PT eval ordered Plan IVF's, monitor labs. Echo today. Patient did not pass the bedside nursing swallow evaluation, one is ordered for today, patient currently NPO. DVT prophylaxis: Heparin Critical Care Time Critical Care Time (minutes): 60
--- NOTE | 2021-12-18 19:58 | PHA.MEDREC ---
Pharmacy Consult ? Medication Reconciliation Pharmacy has completed the medication reconciliation.
[2021-12-18 20:11] LABS: Magnesium 1.9 mg/dL (1.6-2.6); Phosphorus 4.5 mg/dL (2.7-4.5)
[2021-12-18 20:24] LABS: Appearance Urine HAZY; Color Urine YELLOW; Glucose Urine UA NEG (NEG); Leukocyte Esterase Urine NEG (NEG); Nitrite Urine NEG (NEG); PH 5.5 (5.0-8.0); Specific Gravity - Urine >= 1.030 (1.005-1.025); UACC Culture Trigger NO; Urine Blood 3+ (NEG); Urine Ketones NEG (NEG); Urine Protein 1+ MG/DL (NEG-TRACE)
[2021-12-18 20:41] LABS: Bacteria Urine 2+ /LPF; Squamous Epithelial Cell Urine 3+ /LPF; WBC Urine 0 /HPF (0-4)
[2021-12-18] MEDS: Lactated Ringers 1,000 ML 150 ML IVCONT (22:16)
[2021-12-18 23:56] LABS: Anion Gap 15 (12-20); Blood Urea Nitrogen 62 mg/dL (9-16); C Reactive Protein 6.96 mg/dL (< or = 0.50); Calcium 8.6 mg/dL (8.4-10.2); Carbon Dioxide 21 mmol/L (22-29); Chloride 110 mmol/L (96-108); Creatinine Clr Calc Pharmacy 19.8; Estimated Glomerular Filt Rate 14; Glucose Random 94 mg/dL (60-115); Sodium 142 mmol/L (135-145)
[2021-12-19] VITALS (15 sets, daily range): BP systolic 106–172; BP diastolic 52–90; PULSE 58–80; RESP 15–29; TEMP 36.5–37.5; O2SAT 90–99; BMI 30.8
[2021-12-19] MEDS: Lactated Ringers 1,000 ML 999 ML IV ×2 (00:45→04:22)
[2021-12-19] MEDS: Heparin Sodium,Porcine 5,000 UNIT/ML VIAL 5000 UNIT SUBCUT ×3 (01:24→18:02)
[2021-12-19] MEDS: Lactated Ringers 1,000 ML 150 ML IVCONT ×4 (05:25→23:43)
[2021-12-19 05:48] LABS: MANUAL DIFF FLAG NO
[2021-12-19 05:51] LABS: Basophils Percent Auto 0.1 % (0-2); Eosinophils Percent Auto 0.4 % (0-4); Hematocrit 30.2 % (37.0-47.0); Imm Gran Abs Auto 0.04 X10*3/uL (0.00-0.03); Imm Gran Pct Auto 0.4 % (0.0-0.4); Lymphocytes Absolute Auto 1.3 X10*3/uL (1.2-4.9); Lymphocytes Percent Auto 12.2 % (20-40); Mean Corpuscular HGB Conc 33.1 g/dl (31.0-35.0); Mean Corpuscular Hemoglobin 31.5 pg (27.0-33.0); Mean Corpuscular Volume 95.3 fL (80.0-98.0); Mean Platelet Volume 9.3 fL (9.4-12.3); Monocytes Absolute Auto 0.7 X10*3/uL (0.1-1.2); Monocytes Percent Auto 6.6 % (2-11); Neutrophils Absolute Auto 8.2 x10*3/uL (2.0-8.3); Neutrophils Percent Auto 80.3 % (45-73); Platelet Count 132 X10*3/uL (160-400); Red Blood Count 3.17 X10*6/uL (4.20-5.50); Red Cell Distribution Width 13.4 % (11.0-16.0); White Blood Count 10.2 X10*3/uL (4.8-10.8)
[2021-12-19 06:12] LABS: B Type Natriuretic Peptide 107 pg/mL (<100)
[2021-12-19 06:13] LABS: Alanine Aminotransferase 36 U/L (0-31); Albumin Level 2.9 g/dL (3.5-5.0); Alkaline Phosphatase 43 U/L (39-117); Anion Gap 14 (12-20); Aspartate Amino Transferase 153 U/L (5-31); Bilirubin Direct 0.3 mg/dL (0.0-0.5); Bilirubin Total 0.7 mg/dL (0.0-1.0); Blood Urea Nitrogen 57 mg/dL (9-16); Calcium 8.3 mg/dL (8.4-10.2); Carbon Dioxide 20 mmol/L (22-29); Chloride 111 mmol/L (96-108); Creatinine Clr Calc Pharmacy 23.5; Estimated Glomerular Filt Rate 17; Glucose Random 90 mg/dL (60-115); Magnesium 1.9 mg/dL (1.6-2.6); Phosphorus 3.7 mg/dL (2.7-4.5); Potassium 3.8 mmol/L (3.3-5.1); Sodium 141 mmol/L (135-145); Total Protein 5.2 g/dL (6.5-8.0)
[2021-12-19 06:14] LABS: Troponin-I High Sensitivity 164.8 ng/L (<3.5-17.0)
--- NOTE | 2021-12-19 06:43 | PC.NURSE ---
BRUCE CATH WITH MINIMAL DRAINAGE OVERNIGHT. AT ONE POINT AROUND 0200, PT WAS FOUND WET WITH MODERATE AMOUNT OF URINE. BALOON WAS DEFLATED AND BRUCE ADVANCED INTO PLACE BUT WAS STILL NOT DRAINING ANY SIGNIFICANT AMOUNT OF URINE. BRUCE REMOVED AND NEW #16 FR BRUCE INSERTED WITHOUT DIFFICULTY. PT TOLERATED PROCEDURE WELL. BRUCE OUT WAS 350 ML. PT SLEEPY BUT AROUSABLE. SPEECH IS CLEAR. TLC INTACT RIJ. PT HAS HEAD TURNED ALL THE WAY TO THE LEFT AND SAID SHE CANNOT TURN TO THE RIGHT. FACE IS SWOLLEN AND ABRASIONS TO BOTH CHEEKS NOTED. RIGHT EYE IS SWOLLEN SHUT BUT PT ABLE TO OPEN ENOUGH TO SEE WHEN ASKED.
--- NOTE | 2021-12-19 07:00 | CA_ITS ---
Transthoracic Echocardiogram Amended Patient (Last, First, Middle): Shira Paredes, Gender: Female Date of : 1955 Age: 66 Procedure Date: 12/19/2021 Procedure Type: Transthoracic Echocardiogram Location: ICU Height: 172.72 cm Weight: 91.63 kg BSA: 2.05 m2 Heart Rate: 67 bpm BP: 153 / 86 mmHg Personal Lines Appraiser: TAYO Referring MD: Taylor Moore PA-C Customer Care Voice Consultant: Nick Fowler MD Symptoms: renal failure Study Quality: Adequate ECG Rhythm: Sinus Conclusions: - 1. Normal LV systolic and diastolic function 2. Normal cardiac valvular Doppler 3. Normal RV systolic pressure 4. No gross pericardial effusion Findings Left Ventricle Normal left ventricular size, thickness, and systolic function. The visually estimated ejection fraction is between 60-65%. Spectral Doppler is indicative of a normal filling pattern. Right Ventricle Normal right ventricular cavity size and systolic function. Atria The left atrium is likely dilated. There is lipomatous hypertrophy of the interatrial septum. There is no evidence of interatrial shunt. The right atrium is normal in size. Aortic Valve Normal aortic valve structure and function. There is no aortic valve stenosis. There is no aortic valve regurgitation. Mitral Valve There is mild anterior mitral leaflet thickening. There is mild mitral annular calcification. There is trace mitral valve regurgitation. There is no mitral valve stenosis. Pulmonic Valve The pulmonic valve was not well visualized. Tricuspid Valve Likely normal tricuspid valve structure and function. There is trace tricuspid valve regurgitation. The right ventricular systolic pressure is normal. The right ventricular systolic pressure is 31 mmHg. Normal right atrial pressure. There is no evidence of pulmonary hypertension. Great Vessels All visible segments of the aorta are normal in size. The pulmonary artery was not well visualized. Venous The inferior vena cava is normal in size and collapses greater than 50% with inspiration. Pericardium/Pleural There is no evidence of pericardial effusion. Prior Study Comparison No prior study available for comparison. Measurements 2D Linear Measurements IVSd: 1.10 0.6-0.9/0.6-1.0 cm LVIDd: 4.78 3.9-5.3/4.2-5.9 cm LVIDd Index: 2.33 2.4-3.2/2.2-3.1 cm/m2 LVIDs: 2.85 2.0-3.6 cm LVPWd: 1.04 0.7-1.1 cm LA Diam: 3.60 2.7-3.8/3.0-4.0 cm LAIDs Index: 1.76 1.5-2.3 cm/m2 LV Mass: 182.30 67-162/88-224 g LV Mass Index: 88.93 43-95/49-115 g/m2 LVOT Diam: 2.10 3.0+(-)1.3 cm 2D Volumes LA Vol: 25.50 2D Systolic Function EF 4C: 70.30 >55% Mitral Valve MV Pk E: 1.15 MV PK A: 0.99 MV Decel Time: 223.00 E/A: 1.20 E'Lateral: 9.03 E'Medial: 6.09 E/E' Med: 18.90 E/E' Lat: 12.70 PHT: 65.00 MVA PHT: 3.38 Decel Gentry: 5.16 Aortic Valve AoV Pk Jack: 1.80 AoV Mn Jack: 1.11 AoV VTI: 0.36 AoV Pk Grad: 13.00 Aov Mn Grad: 6.00 PHOEBE Cont.VTI: 3.03 LVOT LVOT Pk Jack: 1.56 LVOT Mn Jack: 1.04 LVOT VTI: 0.31 LVOT Pk Grad: 10.00 LVOT Mn Grad: 5.00 LVOT Diam: 2.10 LVOT Area: 3.46 Diastolic Function MV Pk E: 1.15 MV Pk A: 0.99 E/A: 1.20 E'Medial: 6.09 E/E' Med: 18.90 E' Laterial: 9.03 E/E' Lat: 12.70 Right Ventricle TAPSE (mm): 25.80 TVS' Jack: 14.70 Tricuspid Valve TR Pk Jack: 2.38 TR Pk Grad: 23.00 RA Press: 8.00 RVSP: 31.00 Great Vessels Aorta Sinus of Valsalva: 3.20 2.0-3.5 cm Ao Asc: 3.20 2.1-3.4 cm Pulmonary Veins Pulm Vein S/D 1.80 Pulmonary Valve PV Pk Jack: 0.92 Peak PV Grad: 3.00 Updated in Other Vendor System with Status of Final Nick Fowler MD electronically signed on 12/19/2021 11:13:28 AM with status of Final
--- NOTE | 2021-12-19 08:59 | MHC.CDI.CONC ---
CDI Concurrent Query Documentation Clarification: PHYSICIAN'S DOCUMENTATION REQUEST Date of Query: 12/19/21 0900 Patient Name: Shira Paredes Admit Date: 12/18/21 Dear Doctor, A review of the medical record indicates additional documentation may be needed. Please review below and update the documentation accordingly. Clinical Indicators: Risk Factors/Clinical Indicators/Treatments ICU note 12/18 - Rhabdomyolysis - CPK 3700 Multiple facial bruises, fell at home, ound on the floor, hit the right side of her head and face, Abrasion to chin, periorbital edema on the right side. Based on the above, could you clarify in the Progress Notes the appropriate diagnosis, if significant, that supports the above abnormalities and additional evaluation, monitoring, and/or treatment rendered: Traumatic Rhabdomyolysis Non-traumatic Rhabdomyolysis Other (please specify) Unable to determine Use of terms such as suspected, likely, concern for, or probable (associated with a specific diagnosis that is being evaluated, monitored, or treated as if it exists) are acceptable and can be coded in the inpatient setting, when documented at the time of discharge. Thank you, Parvin Dent [facility], CDIS Extension: [phone] Please use your independent medical judgment in providing your response. THIS QUERY IS PART OF THE PERMANENT MEDICAL RECORD Provider Response: Other Other Diagnosis: nontraumatic rhabdomyolysis.
[2021-12-19] MEDS: Albumin Human 25 % 100 ML IV ×2 (09:22→11:11)
--- NOTE | 2021-12-19 09:44 | MHC.CLN ---
RE: CONSULT PT WITH INCREASED NUTRITION RISK R/T PRESSURE INJURY PT REMAINS NPO PENDING SWALLOW EVAL AT THIS TIME WHEN DIET TO ADVANCE, RECOMMEND ADDING ENSURE BID TO INCREASE KCALS AND PROMOTE WOUND HEALING SUPP TO PROVIDE 700KCALS, 40G PROTEIN MONITOR FOR DIET ADVANCEMENT SEE ALSO FULL CLINICAL NUTRITION ASSESSMENT
--- NOTE | 2021-12-19 10:45 | MHC.CM.PN ---
Addendum entered by Dang Keny 12/19/21 11:38: Pt seen by PT: STR recommended: will refer to [facility] contracted facilities. Pt will be difficult to place d/t payor limitations, not COVID vaccinated, and pt wanting to return to home. CM to follow Addendum entered by Dang Keny 12/19/21 11:10: Call placed to [facility]: they assist pt on T, W, F for laundry, meal prep, housework and some ADL's if pt allows. They also assist with shopping and transportation. [facility] to [facility] : message left for callback re: service connection and health services received. Original Note: Met with pt to discuss d/c planning needs: Pt lying in bed, tremulous with a large scabbed area to her right cheek and swollen right eye. Her affect is very flat - she maintains eye contact and is alert and oriented x4. Pt states she resides with her dog Nino and has services 3x weekly provided by [facility]. She uses a walker and her brother Iglesia assists her with transportation/shopping, etc. Pt states she doesn't regularly see a PCP but if she does, she receives care at the [facility]. She is able to complete her ADL's. She is an [employer] - unknown what her level of service connection is - CM will call [facility] to inquire. Pt requesting to return to home - would not want STR. No HCP - pt states she will complete one later Pt is also not vaccinated for COVID and stated she is not interested in the vax. PT eval may be helpful to address the weakness and tremors pt has. CM to follow for finalization of d/c plans.
[2021-12-19] MEDS: Bacitracin Oint 14 GM TUBE 1 APPL TOPICAL ×2 (11:14→20:08)
[2021-12-19] MEDS: DULoxetine HCl 60 MG CAPSULE.DR PO (11:15)
--- NOTE | 2021-12-19 11:55 | PM.CCPN ---
Subjective Subjective Date of Service: 12/19/21 Interval History: Mrs. Paredes was admitted to the ICU last night because of acute renal failure secondary to non-traumatic rhabdomyolysis. The patient is a 66-year-old woman with past medical history of delusional disorder and emphysema.? She is a of the [employer], 100% disabled due to leg weakness, [facility] [place] She has had several falls in the past. ?She lives alone with her dog, has help 3x/week from [facility], and the rest of the time from her brother who is very involved.? Ambulates w a walker.? She doesn?t drive.? Rarely leaves the house.? She is independent w her ADLs.? Brother does her shopping, helps with cooking and cleaning.? She just reheats food in the microwave. HISTORY OF PRESENT ILLNESS: ?On December 16 she fell at home 2? chronic leg weakness. ?She told us that she had woken up to use the bathroom and fell 2? leg weakness, landing on her right side, ?She had no chest pain or dizziness prior to falling. ?She lay on the floor for 2 days before being BIBA to the ED at 1pm yesterday. In the ED, she was awake and oriented. ?Initial temperature was 95.2 degrees.? Heart rate 75, blood pressure 161/101, breathing easy with sat 98% on room air.? She had multiple facial injuries with bruising on both cheeks and a stage II pressure ulcer on the right side of her face from lying there.? She also had a stage II pressure injury or skin tear over her xyphoid process.? She was anuric with mild rhabdomyolysis, BUN/creat 70/4.0 (baseline 8/0.7), CPK 3700.? Bicarb 21, potassium 4.5. ?Lactic acid normal.? WBC was 19, Hb was 13.8 (baseline 10.9). The patient was volume resuscitated in the ED with 4 L crystalloid and was given antibiotics in case of sepsis.? Her temperature normalized fairly quickly.? My bedside ECHO showed probably normal LV wall thickness, normal LV systolic fxn, EF 60+%, RV normal size and fxn, normal valvular structure and dopplers.? Unable to measure TV doppler.? Aortic root looked dilated.? IVC measured about 1.4cm with about 50% insp collapse. She was admitted to the ICU for monitoring and mx of her acute renal failure.? We continued slow volume resuscitation.? After changing her Perkins catheter, she started to put out urine.? After her initial volume resuscitation in the ED, her repeat Hb was down to 10.7.? BUN/creatinine were down to 59/3.2 and her CPK was coming down.? The patient was not felt to be septic, and antibiotics were not continued. Over the last 22 hours, the patient has made about 1 L of urine.? Net fluid balance is positive 7.5L. ?Formal echo this morning by the [facility] is fairly similar to mine from yesterday.? IVC is still normal size and still has >50% inspiratory collapse.? She is awake and oriented, with a very flat affect.? Right eye still swollen shut.? Still has bilat facial bruises.? Heart rate 77, sinus rhythm.? Blood pressure 149/71.? Breathing easy with sat high 90s on room air.? Abdomen benign.? No peripheral edema. LABORATORY DATA:? Below.? Notably, WBC down to 10.2, Hb down to 10.0 after volume resuscitation.? BUN/creat down to 57/2.7.? Bicarb 20, potassium 3.8.? Calcium down to 8.3.? Phosphorus 3.7.? AST and ALT down.? Albumin 2.9. IMPRESSION: 1. Significant underlying disability due to leg weakness of unclear etiology. 2. Rhabdomyolysis 2? lying on the floor for two days.? Improving. 3. EDISON secondary to above.? Improving.? Continue gentle hydration. 4. Likely mild protein calorie malnutrition.? Swallow eval today. 5. Probably underlying anemia of undetermined etiology. 6. ID:? No infection.? No abx indicated. In my opinion, Mrs. Paredes will need rehab.? I am further dubious of her ability to live alone safely in the future.? I would recommend assisted living. Stable for transfer to med-surg.? I will sign out to the hospitalists. Critical Care Time (minutes): 0 Physical Exam Vital Signs: Vital Signs: Last Vital Signs Temp 98.6 F 12/19/21 10:00 Pulse 60 12/19/21 10:00 Resp 17 12/19/21 10:00 BP 145/79 H 12/19/21 10:00 Pulse Ox 99 12/19/21 10:00 O2 Del Method 12/19/21 10:00 BMI result Body Mass Index 30.8 Objective Data Labs CBC & Chem 7: 12/19/21 05:21 12/19/21 05:21 Labs: Laboratory Results - last 24 hr 12/18/21 12/18/21 12/18/21 15:09 15:09 15:09 WBC 19.6 H RBC 4.40 D Hgb 13.8 D Hct 41.4 D MCV 94.1 MCH 31.4 MCHC 33.3 RDW 13.5 Plt Count 238 MPV 8.9 L Immature Gran % (Auto) 0.6 H Neut % (Auto) 84.0 H Lymph % (Auto) 9.4 L [place] % (Auto) 5.8 Eos % (Auto) 0.0 Baso % (Auto) 0.2 Lymph # (Auto) 1.8 [place] # (Auto) 1.1 Eos # (Auto) 0.0 Baso # (Auto) 0.0 Abs Immat Gran (auto) 0.12 H Absolute Neuts (auto) 16.4 H Absolute Nucleated RBC 0.000 Nucleated RBC % (auto) 0.0 Sodium 141 Potassium 4.5 Chloride 103 Carbon Dioxide 21 L Anion Gap 22 H BUN 70 H D Creatinine 4.01 H* Estim Creat Clear Calc 16.1 Estimated GFR 11 Random Glucose 120 H Lactic Acid Calcium 10.3 H D Phosphorus Magnesium Total Bilirubin 0.7 Direct Bilirubin AST 224 H ALT 55 H Alkaline Phosphatase 62 D Total Creatine Kinase 3721 H Troponin I High Sens 153.9 H* C-Reactive Protein B-Natriuretic Peptide Total Protein 7.6 Albumin 4.2 TSH Urine Color Urine Appearance Urine pH Ur Specific [place] Urine Protein Urine Glucose (UA) Urine Ketones Urine Blood Urine Nitrite Ur Leukocyte Esterase Urine RBC Urine WBC Ur Squamous Epith Cells Urine Bacteria COVID-19 ([facility]) COVID-19 Clin Com 12/18/21 12/18/21 12/18/21 15:09 15:09 16:51 WBC RBC Hgb Hct MCV MCH MCHC RDW Plt Count MPV Immature Gran % (Auto) Neut % (Auto) Lymph % (Auto) [place] % (Auto) Eos % (Auto) Baso % (Auto) Lymph # (Auto) [place] # (Auto) Eos # (Auto) Baso # (Auto) Abs Immat Gran (auto) Absolute Neuts (auto) Absolute Nucleated RBC Nucleated RBC % (auto) Sodium Potassium Chloride Carbon Dioxide Anion Gap BUN Creatinine Estim Creat Clear Calc Estimated GFR Random Glucose Lactic Acid 1.3 Calcium Phosphorus Magnesium Total Bilirubin Direct Bilirubin AST ALT Alkaline Phosphatase Total Creatine Kinase Troponin I High Sens C-Reactive Protein B-Natriuretic Peptide Total Protein Albumin TSH 1.31 Urine Color Urine Appearance Urine pH Ur Specific [place] Urine Protein Urine Glucose (UA) Urine Ketones Urine Blood Urine Nitrite Ur Leukocyte Esterase Urine RBC Urine WBC Ur Squamous Epith Cells Urine Bacteria COVID-19 ([facility]) Negative COVID-19 Clin Com See Note 12/18/21 12/18/21 12/18/21 18:50 18:50 20:08 WBC 15.7 H RBC 3.42 L D Hgb 10.7 L D Hct 32.6 L D MCV 95.3 MCH 31.3 MCHC 32.8 RDW 13.6 Plt Count 159 L D MPV 9.0 L Immature Gran % (Auto) 0.5 H Neut % (Auto) 85.1 H Lymph % (Auto) 7.5 L [place] % (Auto) 6.7 Eos % (Auto) 0.1 Baso % (Auto) 0.1 Lymph # (Auto) 1.2 [place] # (Auto) 1.1 Eos # (Auto) 0.0 Baso # (Auto) 0.0 Abs Immat Gran (auto) 0.08 H Absolute Neuts (auto) 13.3 H Absolute Nucleated RBC 0.000 Nucleated RBC % (auto) 0.0 Sodium 141 Potassium 4.0 Chloride 110 H Carbon Dioxide 19 L Anion Gap 16 BUN 59 H Creatinine 3.28 H Estim Creat Clear Calc 19.6 Estimated GFR 14 Random Glucose 117 H Lactic Acid Calcium 8.0 L D Phosphorus 4.5 Magnesium 1.9 Total Bilirubin Direct Bilirubin AST ALT Alkaline Phosphatase Total Creatine Kinase 2763 H Troponin I High Sens C-Reactive Protein B-Natriuretic Peptide Total Protein Albumin TSH Urine Color YELLOW Urine Appearance HAZY Urine pH 5.5 Ur Specific [place] >= 1.030 H Urine Protein 1+ H Urine Glucose (UA) NEG Urine Ketones NEG Urine Blood 3+ H Urine Nitrite NEG Ur Leukocyte Esterase NEG Urine RBC 1-4 Urine WBC 0 Ur Squamous Epith Cells 3+ Urine Bacteria 2+ COVID-19 ([facility]) COVID-19 Clin Com 12/18/21 12/19/21 12/19/21 23:25 00:48 05:21 WBC 10.2 RBC 3.17 L Hgb 10.0 L Hct 30.2 L MCV 95.3 MCH 31.5 MCHC 33.1 RDW 13.4 Plt Count 132 L MPV 9.3 L Immature Gran % (Auto) 0.4 Neut % (Auto) 80.3 H Lymph % (Auto) 12.2 L [place] % (Auto) 6.6 Eos % (Auto) 0.4 Baso % (Auto) 0.1 Lymph # (Auto) 1.3 [place] # (Auto) 0.7 Eos # (Auto) 0.0 Baso # (Auto) 0.0 Abs Immat Gran (auto) 0.04 H Absolute Neuts (auto) 8.2 Absolute Nucleated RBC 0.000 Nucleated RBC % (auto) 0.0 Sodium 142 Potassium 4.0 Chloride 110 H Carbon Dioxide 21 L Anion Gap 15 BUN 62 H Creatinine 3.25 H Estim Creat Clear Calc 19.8 Estimated GFR 14 Random Glucose 94 Lactic Acid Calcium 8.6 D Phosphorus Magnesium Total Bilirubin Direct Bilirubin AST ALT Alkaline Phosphatase Total Creatine Kinase 2755 H Troponin I High Sens C-Reactive Protein 6.96 H Cancelled B-Natriuretic Peptide Total Protein Albumin TSH Urine Color Urine Appearance Urine pH Ur Specific [place] Urine Protein Urine Glucose (UA) Urine Ketones Urine Blood Urine Nitrite Ur Leukocyte Esterase Urine RBC Urine WBC Ur Squamous Epith Cells Urine Bacteria COVID-19 ([facility]) COVID-19 Clin Com 12/19/21 12/19/21 12/19/21 05:21 05:21 05:21 WBC RBC Hgb Hct MCV MCH MCHC RDW Plt Count MPV Immature Gran % (Auto) Neut % (Auto) Lymph % (Auto) [place] % (Auto) Eos % (Auto) Baso % (Auto) Lymph # (Auto) [place] # (Auto) Eos # (Auto) Baso # (Auto) Abs Immat Gran (auto) Absolute Neuts (auto) Absolute Nucleated RBC Nucleated RBC % (auto) Sodium 141 Potassium 3.8 Chloride 111 H Carbon Dioxide 20 L Anion Gap 14 BUN 57 H Creatinine 2.78 H Estim Creat Clear Calc 23.5 Estimated GFR 17 Random Glucose 90 Lactic Acid Calcium 8.3 L Phosphorus 3.7 Magnesium 1.9 Total Bilirubin 0.7 Direct Bilirubin 0.3 AST 153 H ALT 36 H Alkaline Phosphatase 43 D Total Creatine Kinase 2492 H Troponin I High Sens 164.8 H* C-Reactive Protein B-Natriuretic Peptide 107 H Total Protein 5.2 L D Albumin 2.9 L D TSH Urine Color Urine Appearance Urine pH Ur Specific [place] Urine Protein Urine Glucose (UA) Urine Ketones Urine Blood Urine Nitrite Ur Leukocyte Esterase Urine RBC Urine WBC Ur Squamous Epith Cells Urine Bacteria COVID-19 ([facility]) COVID-19 Clin Com Quality Stroke Does the patient have a stroke diagnosis?: No VTE Prior VTE?: No VTE Risk Level:: Medical - moderate - high VTE Device Contraindication: N/A - Device Ordered VTE Drug Contraindication: N/A - Med Ordered
--- NOTE | 2021-12-19 12:15 | MHC.SL.SWA ---
Speech Pathologist Impression: Risk of Aspiration Due to: Medically Fragile Dysphasia Diet Status: Liquid Consistency and Strategies for Safe Swallow: Liquid Intake Recommendation: Thin Liquid Intake Strategies: Unrestricted Solid Food Consistency: Dietary Recommendations: Chopped/Advanced (NDD3) Additional Modifications to Solid Foods: Patient will require full assist during meals due to generalized weakness that includes upper extremities, as well as evident tremor (patient observed to be unable to feed self at this time). Rate of ingestion may be slow due to observed generalized weakness. Oral Medication Intake: Whole with Puree Please contact the pharmacy regarding appropriate crushable or liquid drug formulations that are available whenever modified delivery is recommended. Compensatory Strategies and Precautions to be Taken for Safe Swallow: Sitting Upright (90 deg) Small Bites and Sips Alternate Liquids/Solids Supervision While Eating and Drinking for Safe Swallow: Total Assistance (1:1) Foods to Avoid: Difficult to chew solids Swallowing Recommended Treatments: Compens. Strategy Educat. Recommendation for Speech: Inpatient Speech Therapy Comment: Pt presents with a generalized weakness, mild oral phase dysphagia characterized by prolonged, slow mastication on more solid consistencies, no evidence of difficulty/aspiration signs on thin liquids. Recommend UPGRADE diet to Chopped/Advanced with Thin Liquids, Pills WHOLE in puree or liquid as tolerated. Patient will require full assistance during meals due to generalized weakness and tremor (pt observed to be unable to independently lift utensils to mouth, hold containers of food). Pt is able to tolerate thin liquids by straw with no clinical signs of aspiration. Diet recommendations made in person to nursing and MD in ICU. [facility] will continue to follow for toleration of diet, reassessment of swallow and advancement of diet if warranted. Frequency/Duration: f/u 1-3X while inpatient. Date Range for Service Req: Timeline to reassess: Thermal Spray Operator Clinican/Clinical Fellow: No Supervisory Statement: I have reviewed and agree with the student/clinical fellow's documentation: N/A Speech Language Pathologist: Shae Das M.A., [facility]
--- NOTE | 2021-12-19 18:28 | PC.NURSE ---
Pt is alert and oriented x4. Denies pain at this time but significant weakness noted. pt is unable to even crab a cup of water. Pt transferred from ICU this evening. Huge abrasion to her right face noted, another abrasion to her left cheek. Pt continues on LR at 150cc/her
[2021-12-20] VITALS (9 sets, daily range): BP systolic 106–159; BP diastolic 63–93; PULSE 65–77; RESP 16–20; TEMP 35.5–36.9; O2SAT 94–98
[2021-12-20] MEDS: Heparin Sodium,Porcine 5,000 UNIT/ML VIAL 5000 UNIT SUBCUT ×3 (00:01→16:11)
[2021-12-20] MEDS: diphenhydrAMINE HCL 25 MG TABLET PO (01:26)
--- NOTE | 2021-12-20 05:05 | PM.EVENT ---
Event Note Date of Service: 12/20/21 Event Note: bacteremia: Blood cultures growing GPC. Final culture pending. Started on vancomycin.
[2021-12-20] MEDS: Omeprazole 40 MG CAPSULE.DR PO (05:32)
[2021-12-20 06:22] LABS: Hematocrit 28.5 % (37.0-47.0); Hemoglobin 9.4 g/dl (12.0-16.0); Mean Corpuscular Hemoglobin 31.1 pg (27.0-33.0); Mean Corpuscular Volume 94.4 fL (80.0-98.0); Mean Platelet Volume 9.5 fL (9.4-12.3); Platelet Count 135 X10*3/uL (160-400); Red Blood Count 3.02 X10*6/uL (4.20-5.50); Red Cell Distribution Width 13.1 % (11.0-16.0); White Blood Count 6.2 X10*3/uL (4.8-10.8)
--- NOTE | 2021-12-20 06:42 | PHA.PROG ---
Admission Date/Time: December 18, 2021 17:05 Indication: Bacteremia Weight in k.9 kg Adjusted body weight in K.1 kg [place] body weight in K.9 kg Obesity Dosing Indication % IBW: 143% Serum Creatinine - Last 168 Hours 12/18/21 12/18/21 12/18/21 15:09 18:50 23:25 Creatinine 4.01 H* 3.28 H 3.25 H 12/19/21 05:21 Creatinine 2.78 H Estimated CrCl and GFR - Last 168 Hours 12/18/21 12/18/21 12/18/21 15:09 18:50 23:25 Estim Creat Clear Calc 16.1 19.6 19.8 Estimated GFR 11 14 14 12/19/21 05:21 Estim Creat Clear Calc 23.5 Estimated GFR 17 Vancomycin Loading Dose: 2000 mg Current Vancomycin Dosing Regimen: 500 mg Q24H Date and Time for next Vancomycin Level to be drawn: 12/22/21 @ 0600 Pharmacist Comments on Vancomycin Plan: Patient is > 65 years old, obese and in EDISON. Patient need careful monitor due to all these risk factors. Patient to receive vancomycin 2000 mg loading dose 12/20/21 @ 0730. Maintenance dose to start 12/21/21 @ 0800. Expected AUC 496 with a trough of 17. Random level will be drawn prior to 3rd dose to access for patient safety due to patient's risk factors for toxicity. Pharmacy will monitor renal function daily Morena Gibson PharmD Vancomycin dosing will take advantage of [employer] as a clinical decision support tool that uses Bayesian modeling to calculate individual patient's pharmacokinetic parameters and forecast the patient's drug concentration time course with the target goal AUC 24 range of 400 - 600 mg/L/hr.
[2021-12-20 06:53] LABS: Alanine Aminotransferase 31 U/L (0-31); Albumin Level 3.3 g/dL (3.5-5.0); Alkaline Phosphatase 38 U/L (39-117); Anion Gap 13 (12-20); Aspartate Amino Transferase 117 U/L (5-31); Bilirubin Total 0.9 mg/dL (0.0-1.0); Blood Urea Nitrogen 39 mg/dL (9-16); Calcium 8.8 mg/dL (8.4-10.2); Carbon Dioxide 23 mmol/L (22-29); Chloride 110 mmol/L (96-108); Creatinine Clr Calc Pharmacy 36.8; Estimated Glomerular Filt Rate 29; Glucose Random 88 mg/dL (60-115); Magnesium 1.6 mg/dL (1.6-2.6); Phosphorus 2.2 mg/dL (2.7-4.5); Potassium 3.6 mmol/L (3.3-5.1); Sodium 142 mmol/L (135-145); Total Protein 5.3 g/dL (6.5-8.0)
--- NOTE | 2021-12-20 08:15 | HO.PM.IMPN ---
Subjective Subjective Date of Service: 12/20/21 Interval History: Seen in f/u for fall, renal failure, rhabdo interval history: she's getting better, renal function is improving Review of Systems no nausea or vomitting spasms in leg Physical Exam Vital Signs: Vital Signs: Last Vital Signs Temp 96 F L 12/20/21 06:54 Pulse 74 12/20/21 06:54 Resp 18 12/20/21 06:54 BP 158/77 H 12/20/21 06:54 Pulse Ox 96 12/20/21 06:54 O2 Del Method 12/20/21 06:54 BMI result Body Mass Index 30.8 Const: Other: General: AO X 3, no acute distress Resp: CTA bilateral CVS: S1,S2,RRR GI: +BS, NT, no distention Skin: has bruses in face Neuro: motor grossly intact Psych: appropriate affect Objective Data Active Medications Bacitracin (Bacitracin Oint 14 Gm Tube) 1 appl TOPICAL BID [facility]; Protocol Last Admin: 12/19/21 20:08 Dose: 1 appl Documented By: RAFI Duloxetine HCl (Duloxetine Hcl 60 Mg Capsule.) 60 mg PO DAILY [facility] Last Admin: 12/19/21 11:15 Dose: 60 mg Documented By: MEEK-ALBERT Heparin Sodium (Porcine) (Heparin Sodium,Porcine 5,000 Unit/Ml Vial) 5,000 unit SUBCUT Q8H [facility] Last Admin: 12/20/21 00:01 Dose: 5,000 unit Documented By: RAFI Lactated Ringer's (Lr) 1,000 mls @ 70 mls/hr IVCONT .[id number] [facility] Last Admin: 12/19/21 23:43 Dose: 150 mls/hr Documented By: RAFI Vancomycin HCl 500 mg/ Sodium (Chloride) 110 mls @ 110 mls/hr IV Q24H [facility] Vancomycin HCl 2,000 mg/ (Sodium Chloride) 540 mls @ 270 mls/hr IV ONCE ONE Stop: 12/20/21 09:59 Omeprazole (Omeprazole 40 Mg Capsule.) 40 mg PO DAILY@0630 [facility] Last Admin: 12/20/21 05:32 Dose: 40 mg Documented By: RAFI Pharmacy Consult (Consult Rx Perform Med Rec) 1 each MISCELLANE ONCE PRN PRN Reason: Consult order Pharmacy Consult (Consult Rx Vancomycin Dosing) 1 each MISCELLANE DAILY PRN PRN Reason: Consult order Labs CBC & Chem 7: 12/20/21 05:55 12/20/21 05:55 Labs: Laboratory Results - last 24 hr 12/20/21 12/20/21 05:55 05:55 MCV 94.4 MCH 31.1 MCHC 33.0 RDW 13.1 Plt Count 135 L MPV 9.5 Absolute Nucleated RBC 0.000 Nucleated RBC % (auto) 0.0 Anion Gap 13 Estim Creat Clear Calc 36.8 Estimated GFR 29 Random Glucose 88 Calcium 8.8 D Phosphorus 2.2 L Magnesium 1.6 Total Bilirubin 0.9 AST 117 H ALT 31 Alkaline Phosphatase 38 L Total Creatine Kinase 985 H D Total Protein 5.3 L Albumin 3.3 L Microbiology Microbiology Results: Microbiology 12/18/21 15:09 Blood Culture - Preliminary Blood - Venous Prelim: GPC Gram Stain only 12/18/21 15:09 Blood Culture - Preliminary Blood - Venous No growth after 24 hours. Assessment and Plan (1) Acute renal failure: Status: Acute Plan 66-year-old female with a past medical history of? delusional disorder and emphysema, HTN, chronic leg weakness who fell at home from legs given out and stay on floor for prolonged period of time and noted to have EDISON, rhabdomylosis admitted to the ICU for hydration and transfer the next day EDISON likely from pre renal azotemia has been having diarrhea and volume depleted--doubt from rehabdo as CPK has not been that high, improving, continue IVF and repeat labs in the morning 2. Rhabdomyolysis 2? lying on the floor for two days.? Improving. 4. Likely mild protein calorie malnutrition.? Swallow eval today. 5. Probably underlying anemia of undetermined etiology. 6. Gram positive cocci in blood /2...likely contamination but for now continue Vanco Diarrhea--check cdif DVT prophylaxis: heparin Need for inaptient: EDISON and rhabdo needing IVF Quality Stroke Does the patient have a stroke diagnosis?: No VTE Prior VTE?: No VTE Risk Level:: Medical - moderate - high VTE Device Contraindication: N/A - Device Ordered VTE Drug Contraindication: N/A - Med Ordered
[2021-12-20] MEDS: DULoxetine HCl 30 MG CAPSULE.DR PO (08:48)
[2021-12-20] MEDS: DULoxetine HCl 60 MG CAPSULE.DR PO (08:48)
[2021-12-20] MEDS: HaloperidoL 1 MG TABLET 2 MG PO ×2 (08:49→20:03)
[2021-12-20] MEDS: atenoloL 100 MG TABLET PO (08:50)
[2021-12-20] MEDS: diazePAM 5 MG TABLET PO (08:50)
[2021-12-20] MEDS: Bacitracin Oint 14 GM TUBE 1 APPL TOPICAL ×2 (08:51→20:03)
--- NOTE | 2021-12-20 10:02 | MHC.SL.SWA ---
Speech Pathologist Impression: Risk of Aspiration Due to: Medically Fragile Dysphasia Diet Status: Recommend continue diet of Chopped/Advanced (NDD3) with Thin Liquids, unrestricted. Patient is highly deconditioned, cannot raise hands to self feed, continues to need full assist during all meals. Liquid Consistency and Strategies for Safe Swallow: Liquid Intake Recommendation: Thin Liquid Intake Strategies: Unrestricted Solid Food Consistency: Dietary Recommendations: Chopped/Advanced (NDD3) Additional Modifications to Solid Foods: Present food in manageable bites, alternate solids and liquids. Oral Medication Intake: Whole with Puree Please contact the pharmacy regarding appropriate crushable or liquid drug formulations that are available whenever modified delivery is recommended. Compensatory Strategies and Precautions to be Taken for Safe Swallow: Sitting Upright (90 deg) Liquids from Cup Liquids from Straw Small Bites and Sips Alternate Liquids/Solids Supervision While Eating and Drinking for Safe Swallow: Total Assistance (1:1) Foods to Avoid: Difficult to chew solids Swallowing Recommended Treatments: Compens. Strategy Educat. Recommendation for Speech: Inpatient Speech Therapy Comment: Pt was seen in the a.m., with patient easily roused from sleeping. Pt reported that she didn't have an appetite for breakfast, therefore did not eat. However, patient requested something to drink. UNDERWRITING SALES REPRESENTATIVE brought water and juice. Pt took cup sip of water, with some liquid escaping on sip, but produced timely oral phase and swallow, no clinical signs of aspiration. Pt was then given straw with liquid, still assisted with lifting cup ( I can't lift it to my mouth ), with patient taking several sips by straw, good oral containment, pacing of sips, timely swallow, no clinical signs of aspiration. Patient declined any food trials. Although no appetite this morning and unable to observe Pt taking food, recommend continue diet of Chopped/Advanced (NDD3) with Thin Liquids, unrestricted. Patient is highly deconditioned, cannot raise hands to self feed, continues to need full assist during all meals. Frequency/Duration: f/u 1-3X while inpatient. Date Range for Service Req: Timeline to reassess: Service Associate Clinican/Clinical Fellow: No Supervisory Statement: I have reviewed and agree with the student/clinical fellow's documentation: N/A Speech Language Pathologist: Shae Das M.A., CCC-UNDERWRITING SALES REPRESENTATIVE
--- NOTE | 2021-12-20 11:35 | MHC.CM.PN ---
[facility]: [facility] 80% service connected with unknown STR benefits. Message left for coordinator to callback at [phone] with information. PT eval supports STR
--- NOTE | 2021-12-20 12:51 | MHC.CM.PN ---
PLAN IS DC BY Saturday12/22/21 [facility] REFERRALS UPDATED WITH PLAN. PATIENT PREFERS TO RETURN HOME AT DC. CASE MANAGEMENT FOLLOWING ALONG
[2021-12-20 13:03] LABS: CDiff Gene PCR NEGATIVE (Negative)
--- NOTE | 2021-12-20 13:17 | MHC.CLN ---
F/U SEEN BY WELDING TECHNICIAN AND DIET ADVANCED TO NDD3. ADDING ENSURE BID (700 KCALS, 40 G PROTEIN) TO PROMOTE WOUND HEALING. CONTINUE TO FOLLOW FOR INTAKE AND WOUND.
[2021-12-20] MEDS: Lactated Ringers 1,000 ML 70 ML IVCONT (14:41)
--- NOTE | 2021-12-20 15:59 | PC.NURSE ---
Perkins removed by previous shift at 0430. Patient incontinent x 2. Bladder scanned for 189 and then had another epiosode of incontinence. All DTV's complete.
[2021-12-20] MEDS: carisoprodoL 350 MG TABLET PO (16:51)
[2021-12-20] MEDS: traZODone HCL 100 MG TABLET 200 MG PO (20:03)
[2021-12-21] VITALS (7 sets, daily range): BP systolic 119–151; BP diastolic 58–85; PULSE 60–84; RESP 16–18; TEMP 36.2–36.4; O2SAT 95–97
[2021-12-21] MEDS: Heparin Sodium,Porcine 5,000 UNIT/ML VIAL 5000 UNIT SUBCUT ×3 (00:28→17:34)
[2021-12-21] MEDS: Omeprazole 40 MG CAPSULE.DR PO (05:53)
[2021-12-21 06:22] LABS: Estimated Glomerular Filt Rate 42
[2021-12-21 06:33] LABS: Vancomycin Random 13.7 mcg/mL (15-20)
--- NOTE | 2021-12-21 07:48 | HE.PHANOTE ---
Addendum entered by Eli English RPh 12/21/21 08:39: Noticed Order was put in incorrectly yesterday. Level was drawn today at 0600 instead of 12/21. Will add another 12/22 @ 0600. Level came back at 13.7. This level is not clinically significant at the time due to its early timing. Again will reassess tomorrow after the draw. Original Note: Vancomycin Dosing Addendum Patients renal function has improved, down to 1.26 mg/dL from 1.78mg/dL. Random level to be drawn 12/22 @0600. Will wait for level to assess any dosage changes. Current regimen of 500mg Q24 has predicted AUC of 487 mg/L/hr.
--- NOTE | 2021-12-21 08:08 | P.PNIM_ITS ---
Subjective Subjective Date of Service: 12/22/21 Interval History: Seen in f/u for fall, renal failure, rhabdo interval history: generally feels weak, no new issues, renal function is impro mike g Review of Systems no nausea or vomitting spasms in leg Physical Exam Vital Signs: Vital Signs: Last Vital Signs Temp 97.2 F 12/21/21 07:27 Pulse 60 12/21/21 07:27 Resp 18 12/21/21 07:27 BP 151/82 H 12/21/21 07:27 Pulse Ox 97 12/21/21 07:27 O2 Del Method 12/21/21 07:27 BMI result Body Mass Index 30.8 Const: Other: General: AO X 3, no acute distress Resp: CTA bilateral CVS: S1,S2,RRR GI: +BS, NT, no distention Skin: has abrasion on right face from fall, now nearly scabed Neuro: motor grossly intact Psych: appropriate affect Objective Data Active Medications Albuterol Sulfate (Albuterol Sulfate 90 Mcg 8 Gm Inhaler) 2 puff INHALE Q4H PRN PRN Reason: Shortness Of Breath Atenolol (Atenolol 100 Mg Tablet) 100 mg PO DAILY [facility]; Protocol Last Admin: 12/20/21 08:50 Dose: 100 mg Documented By: SHAKILA Bacitracin (Bacitracin Oint 14 Gm Tube) 1 appl TOPICAL BID [facility]; Protocol Last Admin: 12/20/21 20:03 Dose: 1 appl Documented By: SHOAIB Carisoprodol (Carisoprodol 350 Mg Tablet) 350 mg PO TID PRN PRN Reason: Muscle Spasm Last Admin: 12/20/21 16:51 Dose: 350 mg Documented By: GRAYSON Diazepam (Diazepam 5 Mg Tablet) 5 mg PO TID PRN PRN Reason: anxiety Last Admin: 12/20/21 08:50 Dose: 5 mg Documented By: SHAKILA Docusate Sodium (Docusate Sodium 100 Mg Capsule) 100 mg PO BID [facility] Last Admin: 12/20/21 20:03 Dose: Not Given Documented By: SHOAIB Non-Admin Reason: Patient Refused Duloxetine HCl (Duloxetine Hcl 60 Mg Angie.) 60 mg PO DAILY [facility] Last Admin: 12/20/21 08:48 Dose: 60 mg Documented By: SHAKILA Duloxetine HCl (Duloxetine Hcl 30 Mg Capsule.) 30 mg PO DAILY [facility] Last Admin: 12/20/21 08:48 Dose: 30 mg Documented By: SHAKILA Duloxetine HCl (Duloxetine Hcl 60 Mg Capsule.) 60 mg PO DAILY [facility] Last Admin: 12/20/21 08:49 Dose: Not Given Documented By: SHAKILA Non-Admin Reason: Duplicate Order Haloperidol (Haloperidol 1 Mg Tablet) 2 mg PO BEDTIME [facility] Last Admin: 12/20/21 20:03 Dose: 2 mg Documented By: SHOAIB Haloperidol (Haloperidol 1 Mg Tablet) 2 mg PO BID [facility] Last Admin: 12/20/21 20:03 Dose: Not Given Documented By: SHOAIB Non-Admin Reason: Duplicate Order Heparin Sodium (Porcine) (Heparin Sodium,Porcine 5,000 Unit/Ml Vial) 5,000 unit SUBCUT Q8H [facility] Last Admin: 12/21/21 00:28 Dose: 5,000 unit Documented By: SHOAIB Vancomycin HCl 500 mg/ Sodium (Chloride) 110 mls @ 110 mls/hr IV Q24H [facility] Nicotine Polacrilex (Nicotine Polacrilex Lozenge 2 Mg Lozenge) 2 mg BUCCAL Q2H PRN PRN Reason: Nicotine Cravings Omeprazole (Omeprazole 40 Mg Capsule.) 40 mg PO DAILY@0630 [facility] Last Admin: 12/21/21 05:53 Dose: 40 mg Documented By: SHOAIB Pharmacy Consult (Consult Rx Perform Med Rec) 1 each MISCELLANE ONCE PRN PRN Reason: Consult order Pharmacy Consult (Consult Rx Vancomycin Dosing) 1 each MISCELLANE DAILY PRN PRN Reason: Consult order Tolterodine Tartrate (Tolterodine Tartrate La 4 Mg Cap.Er.24h) 4 mg PO DAILY [facility] Last Admin: 12/20/21 11:00 Dose: Not Given Documented By: SHAKILA Non-Admin Reason: Med Not Available Trazodone HCl (Trazodone Hcl 100 Mg Tablet) 200 mg PO BEDTIME [facility] Last Admin: 12/20/21 20:03 Dose: 200 mg Documented By: SHOAIB Labs CBC & Chem 7: 12/20/21 05:55 12/22/21 05:28 Labs: Laboratory Results - last 24 hr 12/20/21 12/21/21 12/21/21 11:53 05:42 05:42 Estim Creat Clear Calc 52.0 Estimated GFR 42 Random Vancomycin 13.7 L C. difficile Tox B Gene NEGATIVE Microbiology Microbiology Results: Microbiology 12/18/21 15:09 Blood Culture - Preliminary Blood - Venous No growth after 48 hours. 12/18/21 15:09 Blood Culture - Preliminary Blood - Venous Prelim: GPC Gram Stain only Assessment and Plan (1) Acute renal failure: Status: Acute Plan 66-year-old female with a past medical history of? delusional disorder and emph ysema, HTN, chronic leg weakness who fell at home from legs given out and stay on floor for prolonged period of time and noted to have EDISON, rhabdomylosis admitted to the ICU for hydration and transfer the next day EDISON likely from pre renal azotemia has been having diarrhea and volume depleted--doubt from rehabdo as CPK has not been that, creatinine is now within normal limit at .1.26 down from 4 on presentation 2. Rhabdomyolysis 2? lying on the floor for two days.? clinically resolved 5. Probably underlying anemia of undetermined etiology. likely of chronic disease 6. Gram positive cocci in blood 05/21., final culture coag neg staph, contamination so dc Vanco 7. right facial (cheek wound) from fall.. not pressure, continue bacitracin Diarrhea--check cdif DVT prophylaxis: heparin Need for inaptient: EDISON and rhabdo needing IVF Need place for being very weak and deconditioned post ICU care Quality Stroke Does the patient have a stroke diagnosis?: No VTE Prior VTE?: No VTE Risk Level:: Medical - moderate - high VTE Device Contraindication: N/A - Device Ordered VTE Drug Contraindication: N/A - Med Ordered
[2021-12-21] MEDS: DULoxetine HCl 60 MG CAPSULE.DR PO (08:19)
[2021-12-21] MEDS: HaloperidoL 1 MG TABLET 2 MG PO ×2 (08:19→20:55)
[2021-12-21] MEDS: atenoloL 100 MG TABLET PO (08:20)
[2021-12-21] MEDS: DULoxetine HCl 30 MG CAPSULE.DR PO (08:20)
[2021-12-21] MEDS: Tolterodine Tartrate LA 4 MG CAP.ER.24H PO (08:20)
[2021-12-21] MEDS: vancomycin HCL 500 MG in 0.9 % Sodium Chloride 100 ML 110 MG IV (08:21)
[2021-12-21] MEDS: Bacitracin Oint 14 GM TUBE 1 APPL TOPICAL ×2 (08:23→20:55)
--- NOTE | 2021-12-21 08:33 | P.CDIC_ITS ---
CDI Concurrent Query Documentation Clarification: PHYSICIAN'S DOCUMENTATION REQUEST Date of Query: 12/21/21 0833 Patient Name: Shira Paredes Admit Date: 12/18/21 Dear Doctor, A review of the medical record indicates additional documentation may be indicated. Please review below and update the documentation accordingly. Clinical Indicators: Risk Factors/Clinical Indicators/Treatments Clinical nutrition notes - 2 Pressure injuries on face from fall. Nutrition risk R/T pressure injury, recommend Ensure BID to increase Kcals, promote wound healing. Based on the above, could you please provide, in the Progress Notes, further information regarding the ulcer/wound: * For a non-pressure ulcer, please indicate the depth/severity: * Limited to the breakdown of skin * With fat layer exposed * With necrosis of muscle * With necrosis of bone * Other * Unable to determine * If a pressure ulcer, please also include the stage* of the ulcer: * Stage 1 - Skin intact, non-blanchable redness * Stage 2 - Partial thickness loss of dermis, includes intact or open blister * Stage 3 - Full thickness tissue not including bone, tendon, or muscle * Stage 4 - Full thickness tissue loss, including exposed bones, tendon, or muscle * Unstageable * Unable to determine *Source: National Pressure Ulcer Advisory Panel (NPUAP) Use of terms such as suspected, likely, concern for, or probable (associated with a specific diagnosis that is being evaluated, monitored, or treated as if it exists) are acceptable and can be coded in the inpatient setting, when documented at the time of discharge. Thank you, Parvin Dent [facility], CDIS Extension: [phone] Please use your independent medical judgment in providing your response. THIS QUERY IS PART OF THE PERMANENT MEDICAL RECORD Provider Response: Other Other Diagnosis: facial abraision from fall, not pressure ulcer
--- NOTE | 2021-12-21 08:33 | MHC.CDI.CONC ---
CDI Concurrent Query Documentation Clarification: PHYSICIAN'S DOCUMENTATION REQUEST Date of Query: 12/21/21 0833 Patient Name: Shira Paredes Admit Date: 12/18/21 Dear Doctor, A review of the medical record indicates additional documentation may be indicated. Please review below and update the documentation accordingly. Clinical Indicators: Risk Factors/Clinical Indicators/Treatments Clinical nutrition notes - 2 Pressure injuries on face from fall. Nutrition risk R/T pressure injury, recommend Ensure BID to increase Kcals, promote wound healing. Based on the above, could you please provide, in the Progress Notes, further information regarding the ulcer/wound: For a non-pressure ulcer, please indicate the depth/severity: Limited to the breakdown of skin With fat layer exposed With necrosis of muscle With necrosis of bone Other Unable to determine If a pressure ulcer, please also include the stage* of the ulcer: Stage 1 - Skin intact, non-blanchable redness Stage 2 - Partial thickness loss of dermis, includes intact or open blister Stage 3 - Full thickness tissue not including bone, tendon, or muscle Stage 4 - Full thickness tissue loss, including exposed bones, tendon, or muscle Unstageable Unable to determine *Source: National Pressure Ulcer Advisory Panel (NPUAP) Use of terms such as suspected, likely, concern for, or probable (associated with a specific diagnosis that is being evaluated, monitored, or treated as if it exists) are acceptable and can be coded in the inpatient setting, when documented at the time of discharge. Thank you, Parvin Dent [facility], CDIS Extension: [phone] Please use your independent medical judgment in providing your response. THIS QUERY IS PART OF THE PERMANENT MEDICAL RECORD Provider Response: Other Other Diagnosis: facial abraision from fall, not pressure ulcer
--- NOTE | 2021-12-21 13:26 | MHC.CM.PN ---
Addendum entered by Gisele Easley 12/21/21 14:57: Only [facility] is interested, they have requested HCP Patient reports HCP is at [facility] in [place]. She provided name to her commander, Ty Winter [phone], who is primary HCP; he reports he doesn't have a copy as it is in her medical record [place]. Patient requested CM call her brother Iglesia Paredes [phone], 2nd HCP. CM left a detailed message as to nature of call. SNF updated with information regarding HCP status. Call to [facility] [phone], left detailed message. Original Note: Per ROUNDS discussion, patient Not yet medically cleared for discharge today r/t RHABDO need for IVF and EDISON. Discharge plan continues to be STR per PT recommendation. SNF's have been updated. CM will continue to follow for safe discharge.
--- NOTE | 2021-12-21 13:45 | MHC.SL.SWA ---
Speech Pathologist Impression: Risk of Aspiration Due to: Medically Fragile Dysphasia Diet Status: Recommend continue diet of Chopped/Advanced (NDD3) with Thin Liquids, unrestricted. Recommend patient continue to have assistance with meal to assure that food is in bite size pieces, containers are opened and easy for her to access, drinks have straws. Liquid Consistency and Strategies for Safe Swallow: Liquid Intake Recommendation: Thin Liquid Intake Strategies: Unrestricted Solid Food Consistency: Dietary Recommendations: Chopped/Advanced (NDD3) Additional Modifications to Solid Foods: Present food in manageable bites, alternate solids and liquids. Oral Medication Intake: Whole with Puree Please contact the pharmacy regarding appropriate crushable or liquid drug formulations that are available whenever modified delivery is recommended. Compensatory Strategies and Precautions to be Taken for Safe Swallow: Sitting Upright (90 deg) Liquids from Cup Liquids from Straw Small Bites and Sips Alternate Liquids/Solids Supervision While Eating and Drinking for Safe Swallow: Intermittent Supervision Foods to Avoid: Difficult to chew solids Swallowing Recommended Treatments: Compens. Strategy Educat. Recommendation for Speech: Inpatient Speech Therapy Comment: Pt was seen during lunch. Patient was seated in chair beside bed, lunch was on table nearby. Patient reported that she does not have an appetite for food, but has been drinking liquids. Pt advised of meal, expressed interest in the food on tray. Meat on tray was prepped to be bitesize pieces, patient was successfully using utensils to collect food and bring it to mouth (improvement from previous days). Pt produces a slow rotary chew on food, timely swallow, no clinical signs of aspiration. Pt was alternating bites of food with sips of liquid from straw. Pt manages liquid from straw with no difficulties, today was able to lift can with straw to mouth and drink independently. Pt is tolerating recommended diet consistency well, has increased independence with self feeding. Recommend patient continue to have assistance with meal to assure that food is in bite size pieces, containers are opened and easy for her to access, drinks have straws. Recommend continue on Chopped/Advanced (NDD3 w/ thin liquids, pills whole in puree or w/ liquid. Will discharge Speech at this time, please re-consult if any other needs arise. Frequency/Duration: f/u 1-3X while inpatient. Date Range for Service Req: Timeline to reassess: Control Clerk Repairs Clinican/Clinical Fellow: No Supervisory Statement: I have reviewed and agree with the student/clinical fellow's documentation: N/A Speech Language Pathologist: Shae Das M.A., [facility]-ANIMAL PATHOLOGIST
[2021-12-21] MEDS: traZODone HCL 100 MG TABLET 200 MG PO (20:55)
[2021-12-22] MEDS: Heparin Sodium,Porcine 5,000 UNIT/ML VIAL 5000 UNIT SUBCUT ×3 (01:25→16:02)
[2021-12-22 03:10] VITALS: BP 148/85; PULSE 64; RESP 16; TEMP 36.4; O2SAT 97
[2021-12-22] MEDS: Omeprazole 40 MG CAPSULE.DR PO (05:38)
[2021-12-22 07:11] LABS: Creatinine Clr Calc Pharmacy 55.6; Estimated Glomerular Filt Rate 46
[2021-12-22 07:12] LABS: Vancomycin Random 10.5 mcg/mL (15-20)
[2021-12-22 07:36] VITALS: BP 118/60; PULSE 66; RESP 18; TEMP 36.3; O2SAT 97
--- NOTE | 2021-12-22 07:46 | HE.PHANOTE ---
Vanco addendum Increasing dose to 1000mg Q24H predicted AUC 404mg/L
[2021-12-22 08:38] LABS: Anion Gap 12 (12-20); Carbon Dioxide 25 mmol/L (22-29); Chloride 108 mmol/L (96-108); Potassium 3.5 mmol/L (3.3-5.1); Sodium 141 mmol/L (135-145)
[2021-12-22] MEDS: vancomycin HCL 1,000 MG in 0.9 % Sodium Chloride 250 ML 270 MG IV (08:58)
[2021-12-22] MEDS: atenoloL 100 MG TABLET PO (08:59)
[2021-12-22] MEDS: DULoxetine HCl 30 MG CAPSULE.DR PO (08:59)
[2021-12-22] MEDS: DULoxetine HCl 60 MG CAPSULE.DR PO (08:59)
[2021-12-22] MEDS: HaloperidoL 1 MG TABLET 2 MG PO ×2 (09:00→20:46)
[2021-12-22] MEDS: Tolterodine Tartrate LA 4 MG CAP.ER.24H PO (09:01)
[2021-12-22] MEDS: Bacitracin Oint 14 GM TUBE 1 APPL TOPICAL ×2 (09:13→20:48)
[2021-12-22 09:53] VITALS: BP 118/60; PULSE 66; O2SAT 97
--- NOTE | 2021-12-22 10:43 | HO.PM.IMPN ---
Subjective Subjective Date of Service: 12/22/21 Interval History: Seen in f/u for fall, renal failure, rhabdo interval history:still weak but overall is making progress, renal function within normal Review of Systems no nausea or vomitting spasms in leg Physical Exam Vital Signs: Vital Signs: Last Vital Signs Temp 97.4 F 12/22/21 07:36 Pulse 66 12/22/21 09:53 Resp 18 12/22/21 07:36 BP 118/60 12/22/21 09:53 Pulse Ox 97 12/22/21 09:53 O2 Del Method 12/22/21 07:36 BMI result Body Mass Index 30.8 Const: Other: General: AO X 3, no acute distress Resp: CTA bilateral CVS: S1,S2,RRR GI: +BS, NT, no distention Skin: has abrasion on right face from fall, now nearly scabed Neuro: motor grossly intact Psych: appropriate affect Objective Data Active Medications Albuterol Sulfate (Albuterol Sulfate 90 Mcg 8 Gm Inhaler) 2 puff INHALE Q4H PRN PRN Reason: Shortness Of Breath Atenolol (Atenolol 100 Mg Tablet) 100 mg PO DAILY [facility]; Protocol Last Admin: 12/22/21 08:59 Dose: 100 mg Documented By: MILO Bacitracin (Bacitracin Oint 14 Gm Tube) 1 appl TOPICAL BID [facility]; Protocol Last Admin: 12/22/21 09:13 Dose: 1 appl Documented By: MILO Carisoprodol (Carisoprodol 350 Mg Tablet) 350 mg PO TID PRN PRN Reason: Muscle Spasm Last Admin: 12/20/21 16:51 Dose: 350 mg Documented By: GRAYSON Diazepam (Diazepam 5 Mg Tablet) 5 mg PO TID PRN PRN Reason: anxiety Last Admin: 12/20/21 08:50 Dose: 5 mg Documented By: SHAKILA Docusate Sodium (Docusate Sodium 100 Mg Capsule) 100 mg PO BID [facility] Last Admin: 12/22/21 08:59 Dose: Not Given Documented By: MILO Non-Admin Reason: Patient Refused Duloxetine HCl (Duloxetine Hcl 30 Mg Capsule.) 30 mg PO DAILY [facility] Last Admin: 12/22/21 08:59 Dose: 30 mg Documented By: MILO Duloxetine HCl (Duloxetine Hcl 60 Mg Capsule.) 60 mg PO DAILY [facility] Last Admin: 12/22/21 09:00 Dose: Not Given Documented By: MILO Non-Admin Reason: dose is 90mg Haloperidol (Haloperidol 1 Mg Tablet) 2 mg PO BEDTIME [facility] Last Admin: 12/21/21 20:55 Dose: 2 mg Documented By: SHOAIB Haloperidol (Haloperidol 1 Mg Tablet) 2 mg PO BID [facility] Last Admin: 12/22/21 09:00 Dose: 2 mg Documented By: MILO Heparin Sodium (Porcine) (Heparin Sodium,Porcine 5,000 Unit/Ml Vial) 5,000 unit SUBCUT Q8H [facility] Last Admin: 12/22/21 09:01 Dose: 5,000 unit Documented By: MILO Nicotine Polacrilex (Nicotine Polacrilex Lozenge 2 Mg Lozenge) 2 mg BUCCAL Q2H PRN PRN Reason: Nicotine Cravings Omeprazole (Omeprazole 40 Mg Capsule.) 40 mg PO DAILY@0630 [facility] Last Admin: 12/22/21 05:38 Dose: 40 mg Documented By: SHOAIB Pharmacy Consult (Consult Rx Perform Med Rec) 1 each MISCELLANE ONCE PRN PRN Reason: Consult order Pharmacy Consult (Consult Rx Vancomycin Dosing) 1 each MISCELLANE DAILY PRN PRN Reason: Consult order Tolterodine Tartrate (Tolterodine Tartrate La 4 Mg Cap.Er.24h) 4 mg PO DAILY [facility] Last Admin: 12/22/21 09:01 Dose: 4 mg Documented By: MILO Trazodone HCl (Trazodone Hcl 100 Mg Tablet) 200 mg PO BEDTIME [facility] Last Admin: 12/21/21 20:55 Dose: 200 mg Documented By: SHOAIB Labs CBC & Chem 7: 12/20/21 05:55 12/22/21 05:28 Labs: Laboratory Results - last 24 hr 12/22/21 12/22/21 05:28 05:28 Anion Gap 12 Estim Creat Clear Calc 55.6 Estimated GFR 46 Random Vancomycin 10.5 L Microbiology Microbiology Results: Microbiology 12/18/21 15:09 Blood Culture - Final Blood - Venous Coag negative Staphylococcus Assessment and Plan (1) Acute renal failure: Status: Acute Plan 66-year-old female with a past medical history of? delusional disorder and emphysema, HTN, chronic leg weakness who fell at home from legs given out and stay on floor for prolonged period of time and noted to have EDISON, rhabdomylosis admitted to the ICU for hydration and transfer the next day EDISON likely from pre renal azotemia has been having diarrhea and volume depleted--doubt from rehabdo as CPK has not been that, creatinine is now within normal limit at .1.26 down from 4 on presentation 2. Rhabdomyolysis 2? lying on the floor for two days.? clinically resolved 5. Probably underlying anemia of undetermined etiology. likely of chronic disease 6. Gram positive cocci in blood 05/21., final culture coag neg staph, No further Abx 7. right facial (cheek wound) from fall.. not pressure, continue bacitracin Diarrhea--check cdif DVT prophylaxis: heparin Need for inaptient: EDISON and rhabdo needing IVF, can dc IVF Need place for being very weak and deconditioned post ICU care Quality Stroke Does the patient have a stroke diagnosis?: No VTE Prior VTE?: No VTE Risk Level:: Medical - moderate - high VTE Device Contraindication: N/A - Device Ordered VTE Drug Contraindication: N/A - Med Ordered
[2021-12-22 11:31] VITALS: BP 142/82; PULSE 65; RESP 18; TEMP 36.3; O2SAT 99
--- NOTE | 2021-12-22 13:00 | MHC.CLN ---
F/U DIET=NDD3. ENSURE BID (700 KCALS, 40 G PROTEIN) TO PROMOTE WOUND HEALING. REVIEW OF WOUND DOC SHOWS STAGE II ON XIPHOID PROCESS. INTAKE VARIABLE WITH LAST 4 MEALS AVERAGE 50%. CONTINUE TO FOLLOW FOR INTAKE AND WOUND.
--- NOTE | 2021-12-22 15:20 | MHC.CM.PN ---
Patient completed a new HCP today, original and copies given to patient, copy filed in chart and original uploaded to [employer].
[2021-12-22 15:38] VITALS: BP 156/71; PULSE 78; RESP 20; TEMP 37; O2SAT 98
[2021-12-22] MEDS: carisoprodoL 350 MG TABLET PO ×2 (16:02→20:45)
[2021-12-22 20:00] VITALS: BP 114/58; PULSE 66; RESP 18; TEMP 36.6; O2SAT 96
[2021-12-22] MEDS: traZODone HCL 100 MG TABLET 200 MG PO (20:46)
[2021-12-23] VITALS (7 sets, daily range): BP systolic 117–141; BP diastolic 65–87; PULSE 65–71; RESP 16–18; TEMP 36–37.2; O2SAT 95–99
[2021-12-23] MEDS: Heparin Sodium,Porcine 5,000 UNIT/ML VIAL 5000 UNIT SUBCUT ×3 (01:58→17:41)
[2021-12-23] MEDS: Omeprazole 40 MG CAPSULE.DR PO (06:31)
[2021-12-23 06:54] LABS: Vancomycin Trough 10.9 mcg/mL (10.0-20.0)
[2021-12-23 06:55] LABS: Creatinine Clr Calc Pharmacy 50.8; Estimated Glomerular Filt Rate 41
[2021-12-23] MEDS: atenoloL 100 MG TABLET PO (08:40)
[2021-12-23] MEDS: DULoxetine HCl 30 MG CAPSULE.DR PO (08:40)
[2021-12-23] MEDS: Tolterodine Tartrate LA 4 MG CAP.ER.24H PO (08:40)
[2021-12-23] MEDS: Docusate Sodium 100 MG CAPSULE PO ×2 (08:40→20:24)
[2021-12-23] MEDS: DULoxetine HCl 60 MG CAPSULE.DR PO (08:40)
[2021-12-23] MEDS: HaloperidoL 1 MG TABLET 2 MG PO ×3 (08:41→20:27)
--- NOTE | 2021-12-23 09:27 | P.PNIM_ITS ---
Subjective Subjective Date of Service: 12/23/21 Interval History: Seen in f/u for fall, renal failure, rhabdo interval history:still weak but overall is making progress, renal function wit hin normal Review of Systems no nausea or vomitting spasms in leg Physical Exam Vital Signs: Vital Signs: Last Vital Signs Temp 96.8 F 12/23/21 07:20 Pulse 67 12/23/21 07:20 Resp 17 12/23/21 07:20 BP 138/87 12/23/21 07:20 Pulse Ox 96 12/23/21 07:20 O2 Del Method 12/23/21 07:20 BMI result Body Mass Index 30.8 Const: Other: General: AO X 3, no acute distress Resp: CTA bilateral CVS: S1,S2,RRR GI: +BS, NT, no distention Skin: has abrasion on right face from fall, now nearly scabed Neuro: motor grossly intact Psych: appropriate affect Objective Data Active Medications Albuterol Sulfate (Albuterol Sulfate 90 Mcg 8 Gm Inhaler) 2 puff INHALE Q4H PRN PRN Reason: Shortness Of Breath Atenolol (Atenolol 100 Mg Tablet) [address] [facility]; Protocol Last Admin: 12/23/21 08:40 Dose: 100 mg Documented By: JOSELITO Bacitracin (Bacitracin Oint 14 Gm Tube) [address] [facility]; Protocol Last Admin: 12/22/21 20:48 Dose: 1 appl Documented By: RONY Carisoprodol (Carisoprodol 350 Mg Tablet) 350 mg PO TID PRN PRN Reason: Muscle Spasm Last Admin: 12/22/21 20:45 Dose: 350 mg Documented By: RONY Diazepam (Diazepam 5 Mg Tablet) 5 mg PO TID PRN PRN Reason: anxiety Last Admin: 12/20/21 08:50 Dose: 5 mg Documented By: SHAKILA Docusate Sodium (Docusate Sodium 100 Mg Capsule) [address] [facility] Last Admin: 12/23/21 08:40 Dose: 100 mg Documented By: JOSELITO Duloxetine HCl (Duloxetine Hcl 30 Mg Capsule.) [address] [facility] Last Admin: 12/23/21 08:40 Dose: 30 mg Documented By: JOSELITO Duloxetine HCl (Duloxetine Hcl 60 Mg Capsule.) [address] [facility] Last Admin: 12/23/21 08:40 Dose: 60 mg Documented By: JOSELITO Haloperidol (Haloperidol 1 Mg Tablet) [address] [facility] Last Admin: 12/22/21 20:46 Dose: 2 mg Documented By: RONY Haloperidol (Haloperidol 1 Mg Tablet) [address] [facility] Last Admin: 12/23/21 08:41 Dose: 2 mg Documented By: JOSELITO Heparin Sodium (Porcine) (Heparin Sodium,Porcine 5,000 Unit/Ml Vial) 5,[address] [facility] Last Admin: 12/23/21 08:41 Dose: 5,000 unit Documented By: JOSELITO Nicotine Polacrilex (Nicotine Polacrilex Lozenge 2 Mg Lozenge) 2 mg BUCCAL Q2H PRN PRN Reason: Nicotine Cravings Omeprazole (Omeprazole 40 Mg Capsule.) 40 mg PO DAILY@0630 [facility] Last Admin: 12/23/21 06:31 Dose: 40 mg Documented By: JUVENCIO Pharmacy Consult (Consult Rx Perform Med Rec) 1 each MISCELLANE ONCE PRN PRN Reason: Consult order Pharmacy Consult (Consult Rx Vancomycin Dosing) 1 each MISCELLANE DAILY PRN PRN Reason: Consult order Tolterodine Tartrate (Tolterodine Tartrate La 4 Mg Cap.Er.24h) [address] [facility] Last Admin: 12/23/21 08:40 Dose: 4 mg Documented By: JOSELITO Trazodone HCl (Trazodone Hcl 100 Mg Tablet) [address] [facility] Last Admin: 12/22/21 20:46 Dose: 200 mg Documented By: RONY Labs CBC & Chem 7: 12/20/21 05:55 12/23/21 05:57 Labs: Laboratory Results - last 24 hr 12/23/21 12/23/21 05:57 05:57 Estim Creat Clear Calc 50.8 Estimated GFR 41 Vancomycin Trough 10.9 Microbiology Microbiology Results: Microbiology 12/18/21 15:09 Blood Culture - Final Blood - Venous Coag negative Staphylococcus Assessment and Plan (1) Acute renal failure: Status: Acute Plan 66-year-old female with a past medical history of? delusional disorder and emphysema, HTN, chronic leg weakness who fell at home from legs given out and stay on floor for prolonged period of time and noted to have EDISON, rhabdomylosis admitted to the ICU for hydration and transfer the next day 1. EDISON likely from pre renal azotemia has been having diarrhea and volume depleted--doubt from rhabdo as CPK has not been that, creatinine is now within normal limit at .1.29 down from 4 on presentation 2. ?Rhabdomyolysis 2? lying on the floor for two days.? clinically resolved 5. Probably underlying anemia of undetermined etiology. likely of chronic disease, stable 6. Gram positive cocci in blood 05/21., final culture coag neg staph, contamination, No further Abx 7. right facial (cheek wound) from fall.. she admit it was from lying on floor for 4 days, therefore pressure ulcer stage 2, bacitracin Diarrhea--negative cdif DVT prophylaxis: heparin Need for inaptient: EDISON and rhabdo needing IVF, can dc IVF Need place for being very weak and deconditioned post ICU care Quality Stroke Does the patient have a stroke diagnosis?: No VTE Prior VTE?: No VTE Risk Level:: Medical - moderate - high VTE Device Contraindication: N/A - Device Ordered VTE Drug Contraindication: N/A - Med Ordered
[2021-12-23] MEDS: Furosemide 40 MG/4 ML VIAL IVPUSH (10:26)
[2021-12-23] MEDS: Bacitracin Oint 14 GM TUBE 1 APPL TOPICAL ×2 (10:26→20:25)
--- NOTE | 2021-12-23 15:42 | PC.NURSE ---
this RN assumed care at this time.
[2021-12-23] MEDS: carisoprodoL 350 MG TABLET PO (17:41)
[2021-12-23] MEDS: traZODone HCL 100 MG TABLET 200 MG PO (20:22)
[2021-12-24] MEDS: Heparin Sodium,Porcine 5,000 UNIT/ML VIAL 5000 UNIT SUBCUT ×3 (02:14→17:19)
[2021-12-24 03:47] VITALS: BP 156/77; PULSE 63; RESP 16; TEMP 36.4; O2SAT 98
[2021-12-24] MEDS: Omeprazole 40 MG CAPSULE.DR PO (06:14)
[2021-12-24 06:40] LABS: Estimated Glomerular Filt Rate 42
[2021-12-24 07:19] VITALS: BP 154/77; PULSE 67; RESP 18; TEMP 36.5; O2SAT 96
[2021-12-24] MEDS: HaloperidoL 1 MG TABLET 2 MG PO ×3 (09:21→20:24)
[2021-12-24] MEDS: DULoxetine HCl 30 MG CAPSULE.DR PO (09:21)
[2021-12-24] MEDS: DULoxetine HCl 60 MG CAPSULE.DR PO (09:21)
[2021-12-24] MEDS: Tolterodine Tartrate LA 4 MG CAP.ER.24H PO (09:21)
[2021-12-24] MEDS: Docusate Sodium 100 MG CAPSULE PO ×2 (09:21→20:25)
[2021-12-24] MEDS: Bacitracin Oint 14 GM TUBE 1 APPL TOPICAL ×2 (09:22→20:27)
[2021-12-24] MEDS: atenoloL 100 MG TABLET PO (09:22)
--- NOTE | 2021-12-24 10:00 | HO.PM.IMPN ---
Subjective Subjective Date of Service: 12/24/21 Interval History: Seen in f/u for fall, renal failure, rhabdo interval history:overall feeling a bit better, no new complaint Review of Systems no nausea or vomitting spasms in leg Physical Exam Vital Signs: Vital Signs: Last Vital Signs Temp 97.7 F 12/24/21 07:19 Pulse 67 12/24/21 07:19 Resp 18 12/24/21 07:19 BP 154/77 H 12/24/21 07:19 Pulse Ox 96 12/24/21 07:19 O2 Del Method 12/24/21 07:19 BMI result Body Mass Index 30.8 Const: Other: General: AO X 3, no acute distress Resp: CTA bilateral CVS: S1,S2,RRR GI: +BS, NT, no distention Skin: has abrasion on right face from fall, now nearly scabed Neuro: motor grossly intact Psych: appropriate affect Objective Data Active Medications Albuterol Sulfate (Albuterol Sulfate 90 Mcg 8 Gm Inhaler) 2 puff INHALE Q4H PRN PRN Reason: Shortness Of Breath Atenolol (Atenolol 100 Mg Tablet) 100 mg PO DAILY [facility]; Protocol Last Admin: 12/24/21 09:22 Dose: 100 mg Documented By: PARRISH Bacitracin (Bacitracin Oint 14 Gm Tube) 1 appl TOPICAL BID [facility]; Protocol Last Admin: 12/24/21 09:22 Dose: 1 appl Documented By: PARRISH Carisoprodol (Carisoprodol 350 Mg Tablet) 350 mg PO TID PRN PRN Reason: Muscle Spasm Last Admin: 12/23/21 17:41 Dose: 350 mg Documented By: PARRISH Diazepam (Diazepam 5 Mg Tablet) 5 mg PO TID PRN PRN Reason: anxiety Last Admin: 12/20/21 08:50 Dose: 5 mg Documented By: SHAKILA Docusate Sodium (Docusate Sodium 100 Mg Capsule) 100 mg PO BID [facility] Last Admin: 12/24/21 09:21 Dose: 100 mg Documented By: PARRISH Duloxetine HCl (Duloxetine Hcl 30 Mg Capsule.) 30 mg PO DAILY [facility] Last Admin: 12/24/21 09:21 Dose: 30 mg Documented By: PARRISH Duloxetine HCl (Duloxetine Hcl 60 Mg Capsule.) 60 mg PO DAILY [facility] Last Admin: 12/24/21 09:21 Dose: 60 mg Documented By: PARRISH Haloperidol (Haloperidol 1 Mg Tablet) 2 mg PO BEDTIME [facility] Last Admin: 12/23/21 20:24 Dose: 2 mg Documented By: JAELYN Haloperidol (Haloperidol 1 Mg Tablet) 2 mg PO BID [facility] Last Admin: 12/24/21 09:21 Dose: 2 mg Documented By: PARRISH Heparin Sodium (Porcine) (Heparin Sodium,Porcine 5,000 Unit/Ml Vial) 5,000 unit SUBCUT Q8H [facility] Last Admin: 12/24/21 09:23 Dose: 5,000 unit Documented By: PARRISH Nicotine Polacrilex (Nicotine Polacrilex Lozenge 2 Mg Lozenge) 2 mg BUCCAL Q2H PRN PRN Reason: Nicotine Cravings Omeprazole (Omeprazole 40 Mg Capsule.) 40 mg PO DAILY@0630 [facility] Last Admin: 12/24/21 06:14 Dose: 40 mg Documented By: JAELYN Pharmacy Consult (Consult Rx Perform Med Rec) 1 each MISCELLANE ONCE PRN PRN Reason: Consult order Pharmacy Consult (Consult Rx Vancomycin Dosing) 1 each MISCELLANE DAILY PRN PRN Reason: Consult order Tolterodine Tartrate (Tolterodine Tartrate La 4 Mg Cap.Er.24h) 4 mg PO DAILY [facility] Last Admin: 12/24/21 09:21 Dose: 4 mg Documented By: PARRISH Trazodone HCl (Trazodone Hcl 100 Mg Tablet) 200 mg PO BEDTIME [facility] Last Admin: 12/23/21 20:22 Dose: 200 mg Documented By: JAELYN Labs CBC & Chem 7: 12/20/21 05:55 12/24/21 06:10 Labs: Laboratory Results - last 24 hr 12/24/21 06:10 Estim Creat Clear Calc 52.0 Estimated GFR 42 Microbiology Microbiology Results: Microbiology 12/18/21 15:09 Blood Culture - Final Blood - Venous No growth after 5 days. Assessment and Plan (1) Leg weakness, bilateral: Status: Acute (2) Acute renal failure: Status: Acute (3) Rhabdomyolysis: Status: Acute Plan 66-year-old female with a past medical history of? delusional disorder and emphysema, HTN, chronic leg weakness who fell at home from legs given out and stay on floor for prolonged period of time and noted to have EDISON, rhabdomylosis, hypothermia admitted to the ICU for hydration and transfer the next day 1. EDISON likely from pre renal azotemia has been having diarrhea and volume depleted--doubt from rhabdo as CPK has not been that, creatinine is now within normal limit at .1.29 down from 4 on presentation 2. ?Rhabdomyolysis 2? lying on the floor for two days.? clinically resolved 5. Probably underlying anemia of undetermined etiology. likely of chronic disease, stable 6. Gram positive cocci in blood 05/21., final culture coag neg staph, contamination, No further Abx 7. right facial (cheek wound) from fall.. she admit it was from lying on floor for 4 days, therefore pressure ulcer stage 2, bacitracin.. doesn't appear acutely infected Diarrhea--negative cdif DVT prophylaxis: heparin Need for inaptient: EDISON and rhabdo needing IVF, can dc IVF attempt to obtain periphereal line and remove TLC Need place for being very weak and deconditioned post ICU care Needs rehab Quality Stroke Does the patient have a stroke diagnosis?: No VTE Prior VTE?: No VTE Risk Level:: Medical - moderate - high VTE Device Contraindication: N/A - Device Ordered VTE Drug Contraindication: N/A - Med Ordered
[2021-12-24 11:33] VITALS: BP 122/66; PULSE 70; RESP 18; TEMP 36.4; O2SAT 97
[2021-12-24 15:04] VITALS: BP 133/75; PULSE 71; RESP 16; TEMP 36.8; O2SAT 95
[2021-12-24 19:17] VITALS: BP 135/63; PULSE 74; RESP 16; TEMP 36.7; O2SAT 95
[2021-12-24] MEDS: carisoprodoL 350 MG TABLET PO (20:24)
[2021-12-24] MEDS: traZODone HCL 100 MG TABLET 200 MG PO (20:25)
[2021-12-24 23:16] VITALS: BP 118/64; PULSE 72; RESP 16; TEMP 36.8; O2SAT 94
[2021-12-25] VITALS (7 sets, daily range): BP systolic 116–158; BP diastolic 71–80; PULSE 68–82; RESP 16–18; TEMP 36.1–36.8; O2SAT 95–97
[2021-12-25] MEDS: Heparin Sodium,Porcine 5,000 UNIT/ML VIAL 5000 UNIT SUBCUT ×3 (01:04→17:38)
[2021-12-25] MEDS: Omeprazole 40 MG CAPSULE.DR PO (05:45)
[2021-12-25 06:35] LABS: Creatinine Clr Calc Pharmacy 61.3; Estimated Glomerular Filt Rate 51
[2021-12-25] MEDS: Docusate Sodium 100 MG CAPSULE PO ×2 (08:59→20:08)
[2021-12-25] MEDS: Tolterodine Tartrate LA 4 MG CAP.ER.24H PO (08:59)
[2021-12-25] MEDS: DULoxetine HCl 30 MG CAPSULE.DR PO (08:59)
[2021-12-25] MEDS: DULoxetine HCl 60 MG CAPSULE.DR PO (08:59)
[2021-12-25] MEDS: atenoloL 100 MG TABLET PO (08:59)
[2021-12-25] MEDS: Bacitracin Oint 14 GM TUBE 1 APPL TOPICAL ×2 (09:00→20:08)
[2021-12-25] MEDS: HaloperidoL 1 MG TABLET 2 MG PO ×3 (09:00→20:08)
--- NOTE | 2021-12-25 10:19 | P.PNIM_ITS ---
Subjective Subjective Date of Service: 12/25/21 Interval History: Seen in f/u for fall, renal failure, rhabdo interval history:still weak but overall better Review of Systems no nausea or vomitting spasms in leg Physical Exam Vital Signs: Vital Signs: Last Vital Signs Temp 97 F 12/25/21 07:05 Pulse 72 12/25/21 07:05 Resp 18 12/25/21 07:05 BP 132/76 12/25/21 07:05 Pulse Ox 95 12/25/21 07:05 O2 Del Method 12/25/21 07:05 BMI result Body Mass Index 30.8 Const: Other: General: AO X 3, no acute distress Resp: CTA bilateral CVS: S1,S2,RRR GI: +BS, NT, no distention Skin: has abrasion on right face from fall, now nearly scabed Neuro: motor grossly intact Psych: appropriate affect Objective Data Active Medications Albuterol Sulfate (Albuterol Sulfate 90 Mcg 8 Gm Inhaler) 2 puff INHALE Q4H PRN PRN Reason: Shortness Of Breath Atenolol (Atenolol 100 Mg Tablet) 100 mg PO DAILY [facility]; Protocol Last Admin: 12/25/21 08:59 Dose: 100 mg Documented By: LAURA Bacitracin (Bacitracin Oint 14 Gm Tube) 1 appl TOPICAL BID [facility]; Protocol Last Admin: 12/25/21 09:00 Dose: 1 appl Documented By: LAURA Carisoprodol (Carisoprodol 350 Mg Tablet) 350 mg PO TID PRN PRN Reason: Muscle Spasm Last Admin: 12/24/21 20:24 Dose: 350 mg Documented By: ODRISM Docusate Sodium (Docusate Sodium 100 Mg Capsule) 100 mg PO BID [facility] Last Admin: 12/25/21 08:59 Dose: 100 mg Documented By: LAURA Duloxetine HCl (Duloxetine Hcl 30 Mg Capsule.) 30 mg PO DAILY [facility] Last Admin: 12/25/21 08:59 Dose: 30 mg Documented By: LAURA Duloxetine HCl (Duloxetine Hcl 60 Mg Capsule.) 60 mg PO DAILY [facility] Last Admin: 12/25/21 08:59 Dose: 60 mg Documented By: LAURA Haloperidol (Haloperidol 1 Mg Tablet) 2 mg PO BEDTIME [facility] Last Admin: 12/24/21 20:24 Dose: 2 mg Documented By: JAELYN Haloperidol (Haloperidol 1 Mg Tablet) 2 mg PO BID [facility] Last Admin: 12/25/21 09:00 Dose: 2 mg Documented By: LAURA Heparin Sodium (Porcine) (Heparin Sodium,Porcine 5,000 Unit/Ml Vial) 5,000 unit SUBCUT Q8H [facility] Last Admin: 12/25/21 09:04 Dose: 5,000 unit Documented By: LAURA Nicotine Polacrilex (Nicotine Polacrilex Lozenge 2 Mg Lozenge) 2 mg BUCCAL Q2H PRN PRN Reason: Nicotine Cravings Omeprazole (Omeprazole 40 Mg Capsule.Dr) 40 mg PO DAILY@0630 [facility] Last Admin: 12/25/21 05:45 Dose: 40 mg Documented By: JAELYN Pharmacy Consult (Consult Rx Perform Med Rec) 1 each MISCELLANE ONCE PRN PRN Reason: Consult order Pharmacy Consult (Consult Rx Vancomycin Dosing) 1 each MISCELLANE DAILY PRN PRN Reason: Consult order Tolterodine Tartrate (Tolterodine Tartrate La 4 Mg Cap.Er.24h) 4 mg PO DAILY [facility] Last Admin: 12/25/21 08:59 Dose: 4 mg Documented By: LAURA Trazodone HCl (Trazodone Hcl 100 Mg Tablet) 200 mg PO BEDTIME [facility] Last Admin: 12/24/21 20:25 Dose: 200 mg Documented By: JAELYN Labs CBC & Chem 7: 12/20/21 05:55 12/25/21 06:05 Labs: Laboratory Results - last 24 hr 12/25/21 06:05 Estim Creat Clear Calc 61.3 Estimated GFR 51 Assessment and Plan (1) Leg weakness, bilateral: Status: Acute (2) Acute renal failure: Status: Acute (3) Rhabdomyolysis: Status: Acute Plan 66-year-old female with a past medical history of? delusional disorder and emphysema, HTN, chronic leg weakness who fell at home from legs given out and stay on floor for prolonged period of time and noted to have EDISON, rhabdomylosis, hypothermia admitted to the ICU for hydration and transfer the next day 1. EDISON likely pre renal, not rhabdo related CPK was not high enough. This has completly resolved. 2. ?Rhabdomyolysis 2? lying on the floor for two days.? clinically resolved, highest cpk ws 3000 5. Anemia likely chronic disease and stable 6. Gram positive cocci in blood 1/2., final culture coag neg staph, c ontamination, No further Abx 7. right facial (cheek wound) from fall.. she admit it was from lying on floor for 4 days, therefore pressure ulcer stage 2, bacitracin.. doesn't appear acutely infected Diarrhea--negative cdif DVT prophylaxis: heparin Need for inaptient: EDISON and rhabdo needing IVF, can dc IVF attempt to obtain periphereal line and remove TLC Need placement for being very weak and deconditioned post ICU care Quality Stroke Does the patient have a stroke diagnosis?: No VTE Prior VTE?: No VTE Risk Level:: Medical - moderate - high VTE Device Contraindication: N/A - Device Ordered VTE Drug Contraindication: N/A - Med Ordered
[2021-12-25 11:17] LABS: Anion Gap 15 (12-20); Carbon Dioxide 25 mmol/L (22-29); Chloride 103 mmol/L (96-108); Potassium 3.7 mmol/L (3.3-5.1); Sodium 139 mmol/L (135-145)
[2021-12-25] MEDS: Furosemide 40 MG/4 ML VIAL IVPUSH (11:41)
--- NOTE | 2021-12-25 13:55 | MHC.CM.PN ---
Emr reveiwed, per hospitalist pt will be ready for d/c tomorrow, [facility] aware and have been sent updated clinicals, cm will cont to follow d/c needs.
[2021-12-25] MEDS: carisoprodoL 350 MG TABLET PO (15:47)
[2021-12-25] MEDS: traZODone HCL 100 MG TABLET 200 MG PO (20:08)
[2021-12-26] VITALS (7 sets, daily range): BP systolic 123–146; BP diastolic 61–78; PULSE 61–65; RESP 14–18; TEMP 36.2–36.7; O2SAT 93–96
[2021-12-26] MEDS: Heparin Sodium,Porcine 5,000 UNIT/ML VIAL 5000 UNIT SUBCUT ×4 (00:32→23:57)
[2021-12-26] MEDS: Omeprazole 40 MG CAPSULE.DR PO (06:11)
[2021-12-26] MEDS: Tolterodine Tartrate LA 4 MG CAP.ER.24H PO (07:31)
[2021-12-26] MEDS: DULoxetine HCl 30 MG CAPSULE.DR PO (07:32)
[2021-12-26] MEDS: DULoxetine HCl 60 MG CAPSULE.DR PO (07:32)
[2021-12-26] MEDS: Docusate Sodium 100 MG CAPSULE PO ×2 (07:33→20:05)
[2021-12-26] MEDS: atenoloL 100 MG TABLET PO (07:33)
[2021-12-26] MEDS: HaloperidoL 1 MG TABLET 2 MG PO ×3 (07:33→20:05)
[2021-12-26] MEDS: Bacitracin Oint 14 GM TUBE 1 APPL TOPICAL ×2 (07:37→20:07)
[2021-12-26 08:45] LABS: Creatinine Clr Calc Pharmacy 56.5; Estimated Glomerular Filt Rate 47
--- NOTE | 2021-12-26 10:16 | PM.DS ---
DS: Providers Provider Date of Service: 12/26/21 Date of admission: 12/18/21 17:05 Primary care physician: Cathleen Hollis NP DS: Diagnosis Discharge Diagnosis (1) Leg weakness, bilateral: Status: Acute (2) Acute renal failure: Status: Acute (3) Rhabdomyolysis: Status: Acute DS: Summary Hospital Course Hospital Course: Admission HPI form December 18 Chief Complaint: acute renal failure Patient is a 66-year-old female with a past medical history of? delusional disorder and emphysema who fell at home 2/2 chronic leg weakness. Pt states she had woke up to use the bathroom and fell 2/2 leg weakness, landing on her right side, She denies any chest pain or dizziness prior to falling. She states she was on the ground for 2 days before bring BIBA to the ED earlier today. In the ED, she was found to be hypothemic, anuric in acute kidney failure secondary to rhabdomyolysis. She also sustained multiple facial injuries including bruises on both cheeks, right sided stage 2 ulcer, an abrasion on her chin and periorbital edema on the right side. Patient tells me she lives alone with her dog, She has a [employer] worker who comes to her house 3 times per week, someone else does her grocery shopping weekly.? She states she is a of [employer], 100% disabled due to her leg weakness. She could not describe what caused her disability but states she usually ambulates with a walker. She states she has had several falls in the past. According to chart history, she does not have family in the area but does have a good friend who helps her.? She tells me her friend is taking care of her dog right now. Her labs were remarkable for WBC 19.6 with no suspicion of sepsis, likely hemoconcentrated;? serum bicarb 21 with a gap of 22, BUN 70, creatinine 4.01 with no history of renal failure, calcium 10.3, AST 224, ALT 55,? CK of 3721, troponin 153.9. Lactic acid normal, BC pending. VSS; concern as pt has not made any urine. In the ED, the pt was given 4L IVF, zosyn. hospital course: 66-year-old female with a past medical history of? delusional disorder and emphysema, HTN,? chronic? leg weakness who fell at home from legs given out and stay on floor for prolonged period of time and noted to have EDISON, rhabdomylosis, hypothermia admitted to the ICU for hydration and transfer the next day 1. EDISON likely pre renal, not rhabdo related CPK (highest was 300), was not high enough. Initial creatinine was 4 and following hydration has come down to presently 1.16. 2. ?Rhabdomyolysis 2? lying on the floor for 4 days.? clinically resolved, highest cpk ws 3000--treatment was with IVF 5. Anemia --she has chronic anemia, baseline hematocrit around 38.. On admission hematocrit was 40 likely, and has come down to 28--likely from hemodilution and there is no signs of bleeding 6. Gram positive cocci in blood /., final culture coag neg staph, contamination, No further Abx 7. right facial (cheek wound) from fall.. she admit it was from lying on floor for 4 days, therefore pressure ulcer stage 2, bacitracin.. doesn't appear acutely infected Diarrhea--had diarrehea at one point and C dif was negative, no more diarrhea She is very deconditioned, weak and PT is recommending shorter rehab for less than 30 days Time Spent with Patient Time attestation: Total time spent providing and/or coordinating discharge services: Discharge coordination time: Greater than 30 minutes Quality: Safe Use of Opioids Does Pt have an Active Cancer Diagnosis on the Problem List?: No Quality: Stroke Does the patient have a stroke diagnosis?: No Physical Exam Vital Signs: Vital Signs: Last Vital Signs Temp 97.4 F 12/26/21 08:00 Pulse 61 12/26/21 08:00 Resp 16 12/26/21 08:00 BP 137/66 12/26/21 08:00 Pulse Ox 93 12/26/21 08:00 O2 Del Method 12/26/21 08:00 BMI result Body Mass Index 30.8 DS: Data Data Completed and Pending Labs on day of discharge: Laboratory Results - last 24 hr 12/25/21 12/26/21 06:05 07:44 Sodium 139 Potassium 3.7 Chloride 103 Carbon Dioxide 25 Anion Gap 15 Creatinine 1.16 Estim Creat Clear Calc 56.5 Estimated GFR 47 Discharge Plan Discharge Patient Disposition: [facility] Discharge Diagnosis: Acute renal failure, Hypothermia, leg weakness, decub ulcer Referrals: [facility] [Other] - 1 Week Cathleen Hollis NP [Primary Care Provider] - 1 Week Discharge Medications: Continued tolterodine 4 mg Capsule,Extended Release 24hr 4 mg PO DAILY haloperidol 2 mg Tablet 2 mg PO BID haloperidol 2 mg Tablet 2 mg PO BEDTIME trazodone 100 mg tablet 200 mg PO BEDTIME diazepam 5 mg tablet 5 mg PO TID PRN (Reason: Anxiety) duloxetine 30 mg Capsule,Delayed Release(Dr/Ec) 30 mg PO DAILY nicotine (polacrilex) 2 mg Lozenge 2 mg BUCCAL Q2H PRN (Reason: Nicotine Cravings) carisoprodol 350 mg Tablet 350 mg PO TID PRN (Reason: Muscle Spasm) atenolol 100 mg Tablet 100 mg PO DAILY pantoprazole 40 mg Tablet,Delayed Release (Dr/Ec) 40 mg PO DAILY docusate sodium 100 mg PO BID albuterol sulfate 90 mcg/actuation Hfa Aerosol Inhaler 2 puff INHALATION Q4H PRN (Reason: Shortness Of Breath) duloxetine 60 mg Capsule,Delayed Release(Dr/Ec) 60 mg PO DAILY Qty: 30 0RF Diet: Advance to usual diet Activity on Discharge: As tolerated Stand Alone Forms: Patient Portal Discharge page Care Plan Goals: Full recovery and rehab from fall, renal failure, hypothermia Health Concerns: renal failure, weakness decondtioning Plan of Treatment: Short term rehab for less than 30 days Assessment: as above
[2021-12-26 11:19] LABS: Hematocrit 31.1 % (37.0-47.0); Hemoglobin 10.3 g/dl (12.0-16.0); Mean Corpuscular HGB Conc 33.1 g/dl (31.0-35.0); Mean Corpuscular Hemoglobin 31.5 pg (27.0-33.0); Mean Corpuscular Volume 95.1 fL (80.0-98.0); Mean Platelet Volume 8.9 fL (9.4-12.3); Platelet Count 194 X10*3/uL (160-400); Red Blood Count 3.27 X10*6/uL (4.20-5.50); Red Cell Distribution Width 13.3 % (11.0-16.0); White Blood Count 7.7 X10*3/uL (4.8-10.8)
--- NOTE | 2021-12-26 11:19 | HO.PM.IMPN ---
Subjective Subjective Date of Service: 12/26/21 Interval History: f/u on renal failure, weakness interval history: no new issues, awaiting placment Review of Systems no fever or chils still weak Physical Exam Vital Signs: Vital Signs: Last Vital Signs Temp 97.4 F 12/26/21 08:00 Pulse 61 12/26/21 10:55 Resp 16 12/26/21 08:00 BP 137/66 12/26/21 10:55 Pulse Ox 93 12/26/21 10:55 O2 Del Method 12/26/21 08:00 BMI result Body Mass Index 30.8 Const: Other: General: AO X 3, no acute distress Resp:? CTA bilateral CVS: S1,S2,RRR GI: +BS, NT, no distention Skin: has abrasion on right face from fall, now nearly scabed Neuro:? motor grossly intact Psych: appropriate affect Objective Data Active Medications Albuterol Sulfate (Albuterol Sulfate 90 Mcg 8 Gm Inhaler) 2 puff INHALE Q4H PRN PRN Reason: Shortness Of Breath Atenolol (Atenolol 100 Mg Tablet) 100 mg PO DAILY [facility]; Protocol Last Admin: 12/26/21 07:33 Dose: 100 mg Documented By: JACQUELINE Bacitracin (Bacitracin Oint 14 Gm Tube) 1 appl TOPICAL BID [facility]; Protocol Last Admin: 12/26/21 07:37 Dose: 1 appl Documented By: JACQUELINE Docusate Sodium (Docusate Sodium 100 Mg Capsule) 100 mg PO BID [facility] Last Admin: 12/26/21 07:33 Dose: 100 mg Documented By: JACQUELINE Duloxetine HCl (Duloxetine Hcl 30 Mg Capsule.) 30 mg PO DAILY [facility] Last Admin: 12/26/21 07:32 Dose: 30 mg Documented By: JACQUELINE Duloxetine HCl (Duloxetine Hcl 60 Mg Capsule.) 60 mg PO DAILY [facility] Last Admin: 12/26/21 07:32 Dose: 60 mg Documented By: JACQUELINE Haloperidol (Haloperidol 1 Mg Tablet) 2 mg PO BEDTIME [facility] Last Admin: 12/25/21 20:08 Dose: 2 mg Documented By: CASTILKendra Haloperidol (Haloperidol 1 Mg Tablet) 2 mg PO BID [facility] Last Admin: 12/26/21 07:33 Dose: 2 mg Documented By: JACQUELINE Heparin Sodium (Porcine) (Heparin Sodium,Porcine 5,000 Unit/Ml Vial) 5,000 unit SUBCUT Q8H [facility] Last Admin: 12/26/21 07:31 Dose: 5,000 unit Documented By: JACQUELINE Nicotine Polacrilex (Nicotine Polacrilex Lozenge 2 Mg Lozenge) 2 mg BUCCAL Q2H PRN PRN Reason: Nicotine Cravings Omeprazole (Omeprazole 40 Mg Capsule.Dr) 40 mg PO DAILY@0630 [facility] Last Admin: 12/26/21 06:11 Dose: 40 mg Documented By: MING Pharmacy Consult (Consult Rx Perform Med Rec) 1 each MISCELLANE ONCE PRN PRN Reason: Consult order Pharmacy Consult (Consult Rx Vancomycin Dosing) 1 each MISCELLANE DAILY PRN PRN Reason: Consult order Tolterodine Tartrate (Tolterodine Tartrate La 4 Mg Cap.Er.24h) 4 mg PO DAILY [facility] Last Admin: 12/26/21 07:31 Dose: 4 mg Documented By: JACQUELINE Trazodone HCl (Trazodone Hcl 100 Mg Tablet) 200 mg PO BEDTIME [facility] Last Admin: 12/25/21 20:08 Dose: 200 mg Documented By: MING Labs CBC & Chem 7: 12/20/21 05:55 12/26/21 07:44 Labs: Laboratory Results - last 24 hr 12/26/21 07:44 Estim Creat Clear Calc 56.5 Estimated GFR 47 Assessment and Plan (1) Leg weakness, bilateral: Status: Acute (2) Acute renal failure: Status: Acute (3) Rhabdomyolysis: Status: Acute Plan 66-year-old female with a past medical history of? delusional disorder and emphysema, HTN,? chronic? leg weakness who? fell at home from legs given out and stay on floor for prolonged period of time and noted to have EDISON, rhabdomylosis, hypothermia admitted to the ICU for hydration and transfer the next day 1. EDISON likely pre renal, not rhabdo related CPK (highest was 300), was not high enough. ? Initial creatinine was 4 and following hydration has come down to presently 1.16. 2. ?Rhabdomyolysis 2? lying on the floor for 4 days.? clinically resolved, highest cpk ws 3000--treatment was with IVF 5. Anemia --she has chronic anemia, baseline hematocrit around 38.. On admission hematocrit was 40 likely, and has come down to 28--likely from hemodilution and there is no signs of bleeding.. check routinely today 6. Gram positive cocci in blood /., final culture coag neg staph, contamination, No further Abx 7. right facial (cheek wound) from fall.. she admit it was from lying on floor for 4 days, therefore pressure ulcer stage 2, bacitracin.. doesn't appear acutely infected Diarrhea--had diarrehea at one point and C dif was negative, no more diarrhea She is very deconditioned, weak and PT is recommending shorterm rehab for less than 30 days Need for inpatient: [facility] rehab bed Quality Stroke Does the patient have a stroke diagnosis?: No VTE Prior VTE?: No VTE Risk Level:: Medical - moderate - high VTE Device Contraindication: N/A - Device Ordered VTE Drug Contraindication: N/A - Med Ordered
--- NOTE | 2021-12-26 13:03 | MHC.CM.PN ---
Addendum entered by Gisele Easley 12/26/21 14:51: Patient had bed offer from [facility] in [place], [place]. Patient would have to pay $194.50/daily on 21 day. Patient declined offer and shared she knows she will need more than 20 days of rehab and doesn't have the money to pay after her 20 days are done. Bed offer from [facility] and she has accepted, [facility] Original Note: Broad SNF search initiated today. Per ROUNDS discussion patient is ready for discharge today; however, no beds available. MD has been updated of situation.
[2021-12-26] MEDS: traZODone HCL 100 MG TABLET 200 MG PO (20:05)
[2021-12-27] VITALS: BP 143/70; PULSE 69; RESP 18; TEMP 36.6; O2SAT 94
[2021-12-27 03:33] VITALS: BP 143/89; PULSE 69; RESP 18; TEMP 36.9; O2SAT 95
[2021-12-27] MEDS: Omeprazole 40 MG CAPSULE.DR PO (06:04)
[2021-12-27 06:54] LABS: Creatinine Clr Calc Pharmacy 63.1; Estimated Glomerular Filt Rate 53
[2021-12-27 07:26] VITALS: BP 145/63; PULSE 66; RESP 18; TEMP 36.6; O2SAT 95
[2021-12-27] MEDS: Heparin Sodium,Porcine 5,000 UNIT/ML VIAL 5000 UNIT SUBCUT (08:10)
[2021-12-27] MEDS: atenoloL 100 MG TABLET PO (08:10)
[2021-12-27] MEDS: DULoxetine HCl 60 MG CAPSULE.DR PO (08:11)
[2021-12-27] MEDS: Tolterodine Tartrate LA 4 MG CAP.ER.24H PO (08:11)
[2021-12-27] MEDS: Docusate Sodium 100 MG CAPSULE PO (08:11)
[2021-12-27] MEDS: HaloperidoL 1 MG TABLET 2 MG PO (08:11)
[2021-12-27] MEDS: DULoxetine HCl 30 MG CAPSULE.DR PO (08:11)
[2021-12-27] MEDS: Bacitracin Oint 14 GM TUBE 1 APPL TOPICAL (08:11)
--- NOTE | 2021-12-27 10:48 | HO.PM.IMPN ---
Subjective Subjective Date of Service: 12/27/21 Interval History: f/u on renal failure, weakness interval history: no new issues, awaiting placment pending insurance authorization Review of Systems no fever or chils still weak Physical Exam Vital Signs: Vital Signs: Last Vital Signs Temp 97.8 F 12/27/21 07:26 Pulse 66 12/27/21 07:26 Resp 18 12/27/21 07:26 BP 145/63 H 12/27/21 07:26 Pulse Ox 95 12/27/21 07:26 O2 Del Method 12/27/21 07:26 BMI result Body Mass Index 30.8 Const: Other: General: AO X 3, no acute distress Resp:? CTA bilateral CVS: S1,S2,RRR GI: +BS, NT, no distention Skin: scab on right face healing Neuro:? motor grossly intact Psych: appropriate affect Objective Data Active Medications Albuterol Sulfate (Albuterol Sulfate 90 Mcg 8 Gm Inhaler) 2 puff INHALE Q4H PRN PRN Reason: Shortness Of Breath Atenolol (Atenolol 100 Mg Tablet) 100 mg PO DAILY [facility]; Protocol Last Admin: 12/27/21 08:10 Dose: 100 mg Documented By: JACQUELINE Bacitracin (Bacitracin Oint 14 Gm Tube) 1 appl TOPICAL BID [facility]; Protocol Last Admin: 12/27/21 08:11 Dose: 1 appl Documented By: JACQUELINE Docusate Sodium (Docusate Sodium 100 Mg Capsule) 100 mg PO BID [facility] Last Admin: 12/27/21 08:11 Dose: 100 mg Documented By: JACQUELINE Duloxetine HCl (Duloxetine Hcl 30 Mg Capsule.) 30 mg PO DAILY [facility] Last Admin: 12/27/21 08:11 Dose: 30 mg Documented By: JACQUELINE Duloxetine HCl (Duloxetine Hcl 60 Mg Capsule.) 60 mg PO DAILY [facility] Last Admin: 12/27/21 08:11 Dose: 60 mg Documented By: JACQUELINE Haloperidol (Haloperidol 1 Mg Tablet) 2 mg PO BEDTIME [facility] Last Admin: 12/26/21 20:04 Dose: 2 mg Documented By: GRAYSON Haloperidol (Haloperidol 1 Mg Tablet) 2 mg PO BID [facility] Last Admin: 12/27/21 08:11 Dose: 2 mg Documented By: JACQUELINE Heparin Sodium (Porcine) (Heparin Sodium,Porcine 5,000 Unit/Ml Vial) 5,000 unit SUBCUT Q8H [facility] Last Admin: 12/27/21 08:10 Dose: 5,000 unit Documented By: JACQUELINE Nicotine Polacrilex (Nicotine Polacrilex Lozenge 2 Mg Lozenge) 2 mg BUCCAL Q2H PRN PRN Reason: Nicotine Cravings Omeprazole (Omeprazole 40 Mg Capsule.Dr) 40 mg PO DAILY@0630 [facility] Last Admin: 12/27/21 06:04 Dose: 40 mg Documented By: GRAYSON Pharmacy Consult (Consult Rx Perform Med Rec) 1 each MISCELLANE ONCE PRN PRN Reason: Consult order Pharmacy Consult (Consult Rx Vancomycin Dosing) 1 each MISCELLANE DAILY PRN PRN Reason: Consult order Tolterodine Tartrate (Tolterodine Tartrate La 4 Mg Cap.Er.24h) 4 mg PO DAILY [facility] Last Admin: 12/27/21 08:11 Dose: 4 mg Documented By: JACQUELINE Trazodone HCl (Trazodone Hcl 100 Mg Tablet) 200 mg PO BEDTIME [facility] Last Admin: 12/26/21 20:05 Dose: 200 mg Documented By: GRAYSON Labs CBC & Chem 7: 12/26/21 11:13 12/27/21 05:25 Labs: Laboratory Results - last 24 hr 12/26/21 12/27/21 11:13 05:25 MCV 95.1 MCH 31.5 MCHC 33.1 RDW 13.3 Plt Count 194 D MPV 8.9 L Absolute Nucleated RBC 0.000 Nucleated RBC % (auto) 0.0 Estim Creat Clear Calc 63.1 Estimated GFR 53 Assessment and Plan (1) Leg weakness, bilateral: Status: Acute (2) Acute renal failure: Status: Acute (3) Rhabdomyolysis: Status: Acute Plan 66-year-old female with a past medical history of? delusional disorder and emphysema, HTN,? chronic? leg weakness who? fell at home from legs given out and stay on floor for prolonged period of time and noted to have EDISON, rhabdomylosis, hypothermia admitted to the ICU for hydration and transfer the next day 1. EDISON likely pre renal, not rhabdo related CPK (highest was 300), was not high enough. ? Initial creatinine was 4 and following hydration has come down to presently 1.16. 2. ?Rhabdomyolysis 2? lying on the floor for 4 days.? clinically resolved, highest cpk ws 3000--treatment was with IVF 5. Anemia --she has chronic anemia, baseline hematocrit around 38.. On admission hematocrit was 40 likely, and has come down to 28--likely from hemodilution and there is no signs of bleeding.. check routinely today 6. Gram positive cocci in blood 05/21., final culture coag neg staph, contamination, No further Abx 7. right facial (cheek wound) from fall.. she admit it was from lying on floor for 4 days, therefore pressure ulcer stage 2, bacitracin.. doesn't appear acutely infected Diarrhea--had diarrehea at one point and C dif was negative, no more diarrhea She is very deconditioned, weak and PT is recommending shorterm rehab for less than 30 days Need for inpatient: [facility] bed, [facility] Quality Stroke Does the patient have a stroke diagnosis?: No VTE Prior VTE?: No VTE Risk Level:: Medical - moderate - high VTE Device Contraindication: N/A - Device Ordered VTE Drug Contraindication: N/A - Med Ordered
[2021-12-27 11:00] VITALS: BP 125/75; PULSE 61; RESP 18; TEMP 36.6; O2SAT 96
[2021-12-27 11:57] VITALS: BP 125/75; PULSE 61; O2SAT 96
[2021-12-27 14:59] VITALS: BP 141/72; PULSE 64; RESP 16; TEMP 36.3; O2SAT 96
--- NOTE | 2021-12-27 15:33 | PM.DS ---
DS: Providers Provider Date of Service: 12/27/21 Date of admission: 12/18/21 17:05 Primary care physician: Cathleen Hollis NP DS: Diagnosis Discharge Diagnosis (1) Leg weakness, bilateral: Status: Acute (2) Acute renal failure: Status: Acute (3) Rhabdomyolysis: Status: Acute DS: Summary Hospital Course Hospital Course: Admission HPI form December 18 Chief Complaint: acute renal failure Patient is a 66-year-old female with a past medical history of? delusional disorder and emphysema who fell at home 2/2 chronic leg weakness. Pt states she had woke up to use the bathroom and fell 2/2 leg weakness, landing on her right side, She denies any chest pain or dizziness prior to falling. She states she was on the ground for 2 days before bring BIBA to the ED earlier today. In the ED, she was found to be hypothemic, anuric in acute kidney failure secondary to rhabdomyolysis. She also sustained multiple facial injuries including bruises on both cheeks, right sided stage 2 ulcer, an abrasion on her chin and periorbital edema on the right side. Patient tells me she lives alone with her dog, She has a [employer] worker who comes to her house 3 times per week, someone else does her grocery shopping weekly.? She states she is a of [employer], 100% disabled due to her leg weakness. She could not describe what caused her disability but states she usually ambulates with a walker. She states she has had several falls in the past. According to chart history, she does not have family in the area but does have a good friend who helps her.? She tells me her friend is taking care of her dog right now. Her labs were remarkable for WBC 19.6 with no suspicion of sepsis, likely hemoconcentrated;? serum bicarb 21 with a gap of 22, BUN 70, creatinine 4.01 with no history of renal failure, calcium 10.3, AST 224, ALT 55,? CK of 3721, troponin 153.9. Lactic acid normal, BC pending. VSS; concern as pt has not made any urine. In the ED, the pt was given 4L IVF, zosyn. hospital course: 66-year-old female with a past medical history of? delusional disorder and emphysema, HTN,? chronic? leg weakness who fell at home from legs given out and stay on floor for prolonged period of time and noted to have EDISON, rhabdomylosis, hypothermia admitted to the ICU for hydration and transfer the next day 1. EDISON likely pre renal, not rhabdo related CPK (highest was 300), was not high enough. Initial creatinine was 4 and following hydration has come down to presently 1.16. 2. ?Rhabdomyolysis 2? lying on the floor for 4 days.? clinically resolved, highest cpk ws 3000--treatment was with IVF 5. Anemia --she has chronic anemia, baseline hematocrit around 38.. On admission hematocrit was 40 likely, and has come down to 28--likely from hemodilution and there is no signs of bleeding 6. Gram positive cocci in blood /., final culture coag neg staph, contamination, No further Abx 7. right facial (cheek wound) from fall.. she admit it was from lying on floor for 4 days, therefore pressure ulcer stage 2, bacitracin.. doesn't appear acutely infected Diarrhea--had diarrehea at one point and C dif was negative, no more diarrhea She is very deconditioned, weak and PT is recommending shorterm rehab for less than 30 days Time Spent with Patient Time attestation: Total time spent providing and/or coordinating discharge services: Discharge coordination time: Greater than 30 minutes Quality: Safe Use of Opioids Does Pt have an Active Cancer Diagnosis on the Problem List?: No Quality: Stroke Does the patient have a stroke diagnosis?: No Physical Exam Vital Signs: Vital Signs: Last Vital Signs Temp 97.4 F 12/27/21 14:59 Pulse 64 12/27/21 14:59 Resp 16 12/27/21 14:59 BP 141/72 H 12/27/21 14:59 Pulse Ox 96 12/27/21 14:59 O2 Del Method 12/27/21 14:59 BMI result Body Mass Index 30.8 Const: Other: General: AO X 3, no acute distress Resp:? CTA bilateral CVS: S1,S2,RRR GI: +BS, NT, no distention Skin: scab on right face healing Neuro:? motor grossly intact Psych: appropriate affect DS: Data Data Completed and Pending Labs on day of discharge: Laboratory Results - last 24 hr 12/27/21 05:25 Creatinine 1.04 Estim Creat Clear Calc 63.1 Estimated GFR 53 Discharge Plan Discharge Anticipated Discharge Date/Time: 12/27/21 15:34 Patient Disposition: Xfer SNF Discharge Diagnosis: Acute renal failure, Hypothermia, leg weakness, decub ulcer [facility]errals: [facility] [Other] - 1 Week Cathleen Hollis [employer] [Primary Care Provider] - 1 Week Discharge Medications: Continued tolterodine 4 mg Capsule,Extended Release 24hr 4 mg PO DAILY haloperidol 2 mg Tablet 2 mg PO BID haloperidol 2 mg Tablet 2 mg PO BEDTIME trazodone 100 mg tablet 200 mg PO BEDTIME diazepam 5 mg tablet 5 mg PO TID PRN (Reason: Anxiety) duloxetine 30 mg Capsule,Delayed Release(Dr/Ec) 30 mg PO DAILY nicotine (polacrilex) 2 mg Lozenge 2 mg BUCCAL Q2H PRN (Reason: Nicotine Cravings) carisoprodol 350 mg Tablet 350 mg PO TID PRN (Reason: Muscle Spasm) atenolol 100 mg Tablet 100 mg PO DAILY pantoprazole 40 mg Tablet,Delayed Release (Dr/Ec) 40 mg PO DAILY docusate sodium 100 mg PO BID albuterol sulfate 90 mcg/actuation Hfa Aerosol Inhaler 2 puff INHALATION Q4H PRN (Reason: Shortness Of Breath) duloxetine 60 mg Capsule,Delayed Release(Dr/Ec) 60 mg PO DAILY Qty: 30 0RF Discharge Orders: Discharge Order (Routine); Ordered 12/27/21 Ordered By: Danyel Lopez Diet: Advance to usual diet Activity on Discharge: As tolerated Stand Alone Forms: Patient Portal Discharge page Care Plan Goals: Full recovery and rehab from fall, renal failure, hypothermia Health Concerns: renal failure, weakness decondtioning Plan of Treatment: Short term rehab for less than 30 days Assessment: as above
[2021-12-27 16:00] LABS: COVID-19 Test Negative (Negative); IDNOW Serial# 55D5AD1C
--- NOTE | 2021-12-27 16:00 | MHC.CM.PN ---
Patient has been medically cleared for discharge today, she will be going to [facility] via BLS transportation through [place]. No IMM required.
== END 2021-12-27 16:15 | disposition skilled nursing facility (03) | DRG 683 ==
LOC: HO.ED 16:39 → HO.EDOVER 17:12 → HO.ICU 17:33 → HO.S3 12-19 15:32
PROVIDERS: Hospitalist; Physician Assistant; Admitting Provider Anesthesiology; Emergency Provider Emergency Medicine; PCP Nurse Practitioner Family; Visit Provider Internal Medicine
DX: N17.9 Acute kidney failure, unspecified (principal); E44.1 Mild protein-calorie malnutrition; M62.82 Rhabdomyolysis; J43.9 Emphysema, unspecified; R68.0 Hypothermia, not associated with low environmental temperature; Z91.041 Radiographic dye allergy status; I10 Essential (primary) hypertension; D63.8 Anemia in other chronic diseases classified elsewhere; L89.812 Pressure ulcer of head, stage 2; Z20.822 Contact with and (suspected) exposure to COVID-19; Z87.891 Personal history of nicotine dependence; R29.6 Repeated falls; Z68.30 Body mass index [BMI] 30.0-30.9, adult; Z91.81 History of falling; Z88.0 Allergy status to penicillin; Z88.1 Allergy status to other antibiotic agents; Z88.5 Allergy status to narcotic agent; Z88.6 Allergy status to analgesic agent; Z88.8 Allergy status to other drugs, medicaments and biological substances; Z79.899 Other long term (current) drug therapy
CPT/HCPCS: 36415; 70450; 71045; 72125; 80048; 80051; 80053; 80076; 80202; 81001; 82550; 82565; 83605; 83735; 83880; 84100; 84443; 84484; 85025; 85027; 86140; 87040; 87147; 87205; 87493; 87635; 92526; 92610; 93005; 93306; 96361; 96365; 97110; 97163; 97530; 99285; C1758; J1940; J2543; J3370; P9047; Q0163

== ENCOUNTER 2022-07-10 10:48 | Outpatient (REF) | payer OTHER, SELFPAY ==
--- NOTE | ~2022-07-10 | CT_ITS ---
EXAMINATION: CT HEAD WITHOUT CONTRAST CLINICAL INFORMATION: Hydrocephalus COMPARISON: Previous brain MRI July [address] December 2021 TECHNIQUE: Contiguous axial imaging was performed from the skull base to vertex without intravenous administration of contrast. This CT examination was performed using dose optimization techniques as appropriate, variously including the following: *Automated exposure control *Adjustment of mA and/or kV according to patient size (this includes techniques or standardized protocols for targeted exams where dose is matched to indication/reason for exam; i.e. extremities or head) *Use of iterative reconstruction technique DLP: 767 mGy-cm FINDINGS: There is no evidence of an extra-axial collection. There is no evidence of intra-axial or extra-axial hemorrhage. The ventricles and extra-axial CSF spaces are prominent suggestive of generalized atrophy. There is nonspecific periventricular white matter disease. No mass, mass effect or evidence of infarct is seen. There is atherosclerotic disease. No skull fracture. Paranasal sinuses, mastoid air cells and middle ears are clear. CT/CT head/brain wo IV con IMPRESSION: No acute findings. Mild generalized atrophy and nonspecific periventricular white matter disease.
== END 2022-07-10 10:49 | disposition home or self-care (01) ==
LOC: HO.CT 10:48
PROVIDERS: PCP Nurse Practitioner Family; Visit Provider Psychiatry & Neurology Neurology
DX: G91.0 Communicating hydrocephalus (principal)
CPT/HCPCS: 70450

== ENCOUNTER 2022-07-16 12:49 | Outpatient (REF) | payer OTHER, SELFPAY ==
--- NOTE | ~2022-07-16 | MR_ITS ---
EXAMINATION: MR CERVICAL SPINE WITHOUT CONTRAST CLINICAL INFORMATION: 66-year-old with cervical myelopathy. Evaluate for cord compression. COMPARISON: 12/18/2021 CT cervical spine. TECHNIQUE: MRI of the cervical spine was obtained using routine sequences without contrast. FINDINGS: Alignment: There is trace anterolisthesis at C7-T1 and T1-T2 stable in appearance. Otherwise, lordotic curvature is maintained, centered at the C4. Craniocervical Junction/C1-C2 Articulations: Intact and aligned. Visualized Intracranial Structures: Within normal limits. Vertebral Bodies: Stable vertebral body heights. No interval compression fractures. Disc Spaces and Endplates: Mild intervertebral disc space height loss at C5-C6 is stable in appearance and moderate intervertebral disc space height loss at C6-C7 unchanged, with the multilevel anterior marginal spondylosis, most apparent at C5-C6 and C6-C7, T1-T2 and T2-T3 is stable in appearance. Endplates appear grossly intact. Bone Marrow: Slightly heterogeneous bone marrow signal intensity noted throughout the osseous structures on T1 and T2-weighted imaging with no unusual/suspicious bone marrow edema. C2-C3: No disc herniation or canal stenosis. Severe left-sided and mild right-sided facet arthropathy noted with slight foraminal narrowing on the left stable in appearance. C3-C4: Central disc herniation noted, with flattening of the ventral dural sac without cord impingement. No significant central spinal canal stenosis. [id number] right-sided and severe left-sided facet arthrosis similar to previous study with moderate right-sided and severe left-sided neural foraminal stenosis, unchanged in appearance. C4-C5: Broad-based central disc protrusion noted, with mild indentation of the ventral thecal sac without cord impingement. Ligament of flavum thickening is noted, with mild central canal stenosis. Severe right-sided and [id number] left-sided facet arthropathy is stable, with [id number] left-sided neural foraminal stenosis stable in appearance. C5-C6: Broad-based central disc protrusion and right paramedian disc osteophyte complex noted, with effacement of the ventral dural sac without cord impingement. Ligamentum flavum thickening is noted with mild central canal stenosis. Moderate right-sided and severe left-sided facet arthropathy is similar to previous exam, with [id number] left-sided and moderate right-sided neural foraminal stenosis largely unchanged. C6-C7: Broad-based disc osteophyte complex noted, with the flattening of the ventral dural sac without cord impingement. Mild ligamentum flavum thickening is noted without significant central spinal canal stenosis. [id number]-[id number] right and moderate left-sided facet arthropathy is again noted with mild left-sided neural foraminal stenosis, stable in appearance. C7-T1: Trace anterolisthesis noted with unroofing of the posterior disc margin is stable in appearance without disc herniation or canal stenosis. Ligamentum flavum thickening is noted with moderate bilateral facet arthropathy, stable in appearance without significant neural foraminal stenosis. T1-T2: Trace anterolisthesis and a tiny central disc protrusion noted with minimal indentation of the ventral thecal sac without cord impingement or canal stenosis. Minor facet arthrosis is noted bilaterally without significant neural foraminal stenosis. There is facet arthropathy noted bilaterally at T3-T4 with [id number] bilateral neural foraminal stenosis. Spinal Cord: The cervical and visualized upper thoracic spinal cord is normal in morphology, caliber and signal intensity throughout, without focal lesion, edema or syrinx. Extracranial Soft Tissues: There is a subcentimeter right thyroid lobe nodule. Other very small subcentimeter left thyroid lobe nodules are seen. Not clinically significant. No followup imaging recommended. (This recommendation is offered as general guidance and does not apply to all patients, such as those with clinical risk factors for thyroid cancer.) MR/MR cervical spine wo con IMPRESSION: 1. Multilevel cervical DDD and spondylosis, with multilevel central disc herniations and disc osteophyte complexes without spinal cord impingement. Mild central spinal canal stenosis at C4-C5 and C5-C6 is noted. 2. Multilevel bilateral facet arthropathy as described above with multilevel bilateral neural foraminal stenosis largely unchanged, most apparent on the left at C3-C4 and C5-C6. 3. Trace anterolisthesis at C7-T1 and T1-T2 stable in appearance.
== END 2022-07-16 12:50 | disposition home or self-care (01) ==
LOC: HO.MRI 12:49
PROVIDERS: PCP Nurse Practitioner Family; Visit Provider Psychiatry & Neurology Neurology
DX: G95.9 Disease of spinal cord, unspecified (principal)
CPT/HCPCS: 72141